=== PATIENT | female | born 1945 | race Caucasian/White ===

== ENCOUNTER 2019-12-25 09:48 | Outpatient (CLI) | payer MEDICARE, OTHER, SELFPAY ==
--- NOTE | 2019-12-25 09:58 | MM_ITS ---
WS: [id number] Bilateral screening digital mammogram, 12/25/2019 Clinical Data: SCREENING Comparison: 09/17/2018, 07/25/2017, 07/06/2016, 06/16/2015, 04/20/2014, 04/15/2013, 01/08/2012, 01/02/2011, . Findings: The breast parenchymal pattern shows fibroglandular tissue No spiculated masses or clustered calcific ations are seen. There are no secondary signs of carcinoma. There are small calcifications in the wal ls of the vessels. There is a mole marker on the left breast. MM/[id number] Impression: 1. Negative bilateral mammogram unchanged. 2. Recommend annual screening mammograms. BIRADS: 1-Negative FOLLOW UP: 1 Year Follow-up The CAD case checker was used.
== END 2019-12-25 09:49 | disposition home or self-care (01) ==
LOC: RADSHAW 09:54
PROVIDERS: PCP Nurse Practitioner Family; Visit Provider Nurse Practitioner Family
DX: Z12.31 Encounter for screening mammogram for malignant neoplasm of breast (principal)
CPT/HCPCS: 77067

== ENCOUNTER 2020-09-06 15:43 | Emergency (ER) | payer MEDICARE, SELFPAY ==
[2020-09-06 16:02] VITALS: BP 125/81; PULSE 86; RESP 17; TEMP 36.7; O2SAT 100; BMI 27.4
--- NOTE | 2020-09-06 16:26 | XRR_ITS ---
PROCEDURE INFORMATION: Exam: XR Chest Exam date and time: 09/06/2020 4:26 PM Age: 74 years old Clinical indication: Patient HX: History--weakness for 3 weeks, low back pain TECHNIQUE: Imaging protocol: XR of the chest. Views: 1 view. COMPARISON: No relevant prior studies available. FINDINGS: Lungs: Unremarkable. No consolidation. Pleural spaces: Unremarkable. No pleural effusion. No pneumothorax. Heart/Mediastinum: Unremarkable. No cardiomegaly. Bones/joints: Unremarkable. XR/XR chest 1V portable [id number] IMPRESSION: No acute findings.
--- NOTE | 2020-09-06 16:26 | ECG_ITS ---
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 Measurements Intervals [place] Rate: 83 P: 52 [place]: 124 QRS: 25 QRSD: 78 T: 68 QT: 357 QTc: 420 Interpretive Statements SINUS RHYTHM LOW QRS VOLTAGE IN PRECORDIAL LEADS [QRS DEFLECTION < 1.0 mV IN CHEST LEADS] POSSIBLE RIGHT VENTRICULAR CONDUCTION DELAY [RSR (QR) IN V1/V2] POSSIBLE SEPTAL MYOCARDIAL INFARCTION [30 ms Q WAVE IN V1/V2], OF INDETERMINATE AGE No previous ECG available for comparison Electronically Signed On 09-07-2020 0:48:06 CDT by Tank Macias M.D. [id number]
[2020-09-06 18:19] LABS: Basophils # 0.2 10^3/uL (0.0-0.1); Basophils % 1.7 %; Eosinophils % 0.1 %; Hemoglobin 13.2 g/dL (11.5-15.3); Lymphocytes # 1.9 10^3/uL (0.8-4.8); Lymphocytes % 18.4 %; Mean Corpuscular HGB Conc 33.8 g/dL (30.0-36.0); Mean Corpuscular Hemoglobin 34.1 pg (28.0-34.0); Mean Corpuscular Volume 100.8 fL (81-99); Mean Platelet Volume 10.7 fL (7.4-10.4); Monocytes # 0.7 10^3/uL (0.2-0.9); Neutrophils # 7.51 10^3/uL (1.8-7.7); Neutrophils % 71.5 %; Nucleated Red Blood Cells % 0 %; Platelet Count 226 10^3/cmm (130-400); Red Blood Count 3.87 10^6/uL (4.1-5.3); Red Cell Distribution Width 17.5 % (12.1-15.1); White Blood Count 10.5 10^3/uL (4.0-10.0)
--- NOTE | 2020-09-06 18:26 | ECG_ITS ---
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 Measurements Intervals [place] Rate: 81 P: 66 [place]: 140 QRS: 33 QRSD: 78 T: 103 QT: 347 QTc: 404 Interpretive Statements SINUS RHYTHM LOW QRS VOLTAGE IN PRECORDIAL LEADS [QRS DEFLECTION < 1.0 mV IN CHEST LEADS] POSSIBLE RIGHT VENTRICULAR CONDUCTION DELAY [RSR (QR) IN V1/V2] NONSPECIFIC T-WAVE ABNORMALITY Compared to ECG 09/06/2020 17:32:25 T-wave abnormality now present Myocardial infarct finding no longer present Electronically Signed On 09-07-2020 0:52:44 CDT by Tank Macias M.D. [id number]
[2020-09-06 18:32] LABS: Troponin(5th) Baseline 19 ng/L (0-10)
[2020-09-06 18:36] LABS: Alanine Aminotransferase 14 U/L (0-33); Albumin Level 4.5 g/dL (3.5-5.2); Alkaline Phosphatase 91 IU/L (35-105); Anion Gap 32.6 (5-19); Aspartate Amino Transferase 22 U/L (0-32); Blood Urea Nitrogen 14 mg/dL (8-23); Calcium 9.5 mg/dL (8.5-10.5); Carbon Dioxide 10 mmol/L (22-29); Chloride 103 mmol/L (98-107); Creatinine Clr Calc Pharmacy 49.6518; Globulin 2.3 g/dL (1.3-4.6); Glucose 103 mg/dL (65-115); Osmolality Calculated 295 mOsm/kg (285-295); Potassium 3.6 mmol/L (3.5-5.1); Sodium 142 mmol/L (136-145); Total Bilirubin 0.4 mg/dL (0.15-1.2); Total Protein 6.8 g/dL (6.6-8.7)
[2020-09-06 19:46] LABS: Troponin 5 2HR 18.45 ng/L (0-10)
[2020-09-06 19:47] LABS: Troponin 5 2HR Delta -0.55 ABS# (0-10)
== END 2020-09-07 00:30 ==
PROVIDERS: Physician Assistant; Emergency Provider Family Medicine; PCP Nurse Practitioner Family
DX: R53.1 Weakness (principal); R41.0 Disorientation, unspecified; M79.606 Pain in leg, unspecified; M54.9 Dorsalgia, unspecified; Z53.21 Procedure and treatment not carried out due to patient leaving prior to being seen by health care provider
CPT/HCPCS: 71045; 80053; 84484; 85025; 87040; 93005

== ENCOUNTER 2020-09-25 11:01 | Emergency (ER) | payer MEDICARE, SELFPAY ==
--- NOTE | 2020-09-25 11:09 | PC.NURSE ---
Received report from EMS for patient sliding from bed to floor left leg pain and low back pain 11/20. Patient resting on right side.
[2020-09-25 11:12] VITALS: BMI 27.4
[2020-09-25 11:24] VITALS: BP 119/79; PULSE 84; RESP 20; TEMP 36.4; O2SAT 99
--- NOTE | 2020-09-25 11:26 | ED_ITS ---
HPI - Back Pain/Injury General: Chief Complaint: Back Pain/Injury Stated Complaint: LOW BACK AND LEFT LEG PAIN Time Seen by Provider: 09/25/20 11:04 Source: patient and family (daughter) Mode of arrival: EMS Limitations: no limitations History of Present Illness: HPI Narrative: This patient arrived by EMS. History is provided by both the patient as well as her accompanying daughter who lives with her. Patient has a longstanding history of back pain. Daughter states it is for as long as she can remember her mother has had back pain. She states she is being followed by local clinic and has had a couple injections in her back for pain the most recent approximately 10 days ago. She states that she is in the emergency part today because she she was getting out of bed with the daughter's assistance and she felt like that she could not bear weight because of pain and daughter and her lowered her to the floor. EMS was notified. She apparently also has a history of having a fall within the last couple weeks. She denies any fevers or chills or other constitutional symptoms. She denies any loss of bowel or bladder control, weight loss, night sweats or other red flag symptoms. No history of saddle or perineal anesthesia or numbness. States the pain is in her lower back predominantly radiates into the outside portion of her left leg which is common for her. No extremity pain. No loss of motor function just global weakness. No history of depression. Severity: similar to previous episodes Quality: dull Location: lumbar spine and thoracic spine Radiation: left upper leg Exacerbating factors: walking Relieving factors: none Associated symptoms: Reports difficulty walking; Deny abdominal pain, chills, dysuria, fever(s), nausea, urinary urgency or vomiting Review of Systems Const: Denies: fever(s), chills, body aches, change in weight or night sweats Eyes: Denies: change in vision ENMT: Reports: dental pain; Denies: throat pain Card: Denies: chest pain, palpitations or irregular heart rhythm Resp: Denies: dyspnea, productive cough or non-productive cough GI: Denies: abdominal pain, nausea or vomiting : Denies: flank pain, difficulty voiding, dysuria, urinary frequency, urinary urgency or dribbling Musc: Reports: back pain; Denies: neck pain, extremity pain, extremity swelling, joint pain, limited range of motion or muscle cramps Skin/Breast: Denies: rash or changes in skin color Neuro: Reports: difficulty walking; Denies: headache(s), numbness in extremities, dizziness, vertigo, confusion or Slurred speech present Psych: Reports: sleeping more; Denies: depression Endo: Denies: polyuria or polydipsia Marcin/Lymph: Denies: easy bruising, petechiae or purpura Physical Exam Narrative: EXAM NARRATIVE: She makes eye contact. She will answer questions in a goal-directed fashion. Affect is flat. Const: COMMON NORMALS: patient oriented x3 and alert GENERAL APPEARANCE: cooperative ORIENTATION/CONSCIOUSNESS: Yes awake HENMT: COMMON NORMALS: normocephalic, hearing grossly normal bilaterally and Normal external nose present; head/scalp not atraumatic HEAD & SCALP: normocephalic; not atraumatic FACE & SINUS: normal facial exam NOSE: Normal external nose present MOUTH: Normal oral and palatal mucosa present (Mask per protocol) Eye: COMMON NORMALS: Equal, round and reactive pupils present GENERAL EYE: appearance normal, both eyes and all related structures and normal light reflex PUPIL: Yes Equal, round and reactive pupils present DIRECT OPHTHALMOSCOPY: Yes normal light reflex Neck/C-Spine: COMMON NORMALS: full ROM, no lymphadenopathy and No carotid bruits CERVICAL SPINE: Yes cervical ROM normal, No Cervical spine tenderness and No step off deformity Chest: COMMONS NORMALS: normal inspection of the chest CHEST: No tenderness and No Ecchymosis present Resp: COMMON NORMALS: normal respiratory effort, No retractions and clear to auscultation bilaterally AUSCULTATION: clear to auscultation bilaterally Cardio: COMMON NORMALS: regular rate, regular rhythm and No murmurs present (Cardio) RATE: regular rate RHYTHM: regular rhythm GI: COMMON NORMALS: Normal to inspection, nondistended, normoactive bowel sounds present, Soft to palpation, non-tender, no masses and no bruits PALPATION: Yes Soft to palpation : COMMON NORMALS: Yes no CVA tenderness BLADDER/KIDNEY EXAM: Yes no CVA tenderness Back/Pelvis: COMMON NORMALS: no CVA tenderness and thoracic and lumbar spine normal to inspection THORACIC SPINE/UPPER BACK: Yes thoracic spinal tenderness (Tenderness along the midline of the mid to lower thoracic and upper lumbar.) and Yes paraspinal muscle tenderness LUMBAR SPINE/LOWER BACK: Yes lumbar spinal tenderness, Yes paraspinal muscle tenderness, No straight leg raise positive right and Yes straight leg raise positive left SACROILIAC JOINTS: Yes SI joints normal (No tenderness over the soft tissue over the posterior superior iliac spines) SACRUM: no ecchymosis COCCYX: no tenderness Extremity: COMMON NORMALS: normal to inspection, full ROM, capillary refill normal, no joint enlargement and no calf tenderness NARRATIVE EXTREMITY EXAM: Rotation of the left hip internally and externally reproduces some of her back pain however there is no crepitance. There is no deformity of the hip. No other extremity findings. Neuro: COMMON NORMALS: patient oriented x3, moves all extremities, no focal motor deficits and no sensory deficits noted (She has no sensational abnormalities to light touch through the extremities) SENSORIUM/ORIENTATION: Yes alert SPEECH: speech normal SENSORY EXAM: Yes extremities Psych: COMMON NORMALS: mental status grossly normal and Normal thought process present MOOD & AFFECT: Yes Flat affect present THOUGHT PROCESS: Normal thought process present THOUGHT CONTENT: Yes Normal thought content present Course Reevaluation(s): Reevaluation #1: Discussed current findings with patient and daughter. Patient states she is gotten maybe some relief after her Lidoderm patch. Discussed that she has what appears to be a compression fracture as well as severe DJD and spinal stenosis. The former of these 3 is likely responsible factor for having increased symptoms recently. The eye is ideas to increase her mobilization without causing her to be affected by opiates. She apparently had a history of being somewhat altered on opiates in the past and that is why she was placed on acetaminophen with codeine. We will go ahead and add the Lidoderm patch prescription as well as meloxicam once daily. Discussed she has a follow- up appointment in 72 hours with her usual care doctor who is providing her back pain treatments. Again I related expected course, the need to remain active with patient and daughter. Also discussed return precautions. No evidence of any neurologic compromise at this time. Again the patient has a longstanding history of chronic back pain and is superimposed on that symptoms complex has caused her a increased debility. She may benefit from home physical therapy etc. and I discussed this with the patient and daughter. Time: 13:50 Vital Signs: Vital signs: Vital Signs Temperature 97.6 F 09/25/20 11:24 Pulse Rate 80 09/25/20 12:35 Respiratory Rate 16 09/25/20 12:35 Blood Pressure 119/79 09/25/20 12:35 Pulse Oximetry 99 09/25/20 12:35 Discharge Plan Discharge Patient Disposition: Home Clinical Impression: Compression fx, lumbar spine Qualifiers: Lumbar vertebra fracture level: unspecified lumbar vertebra Fracture healing: with routine healing Condition: Stable Prescriptions: New lidocaine [Lidoderm] 5 % adhesive patch,medicated 1 patch topical Q24H MDD 1 Qty: 15 RF: 0 meloxicam 15 mg tablet 15 mg PO DAILY Qty: 14 RF: 0 Discharge Orders: Discharge ED (Routine); Ordered 09/25/20 Ordered By: Harinder Chavarria Referrals: Shahrzad Contreras FNP [Primary Care Provider] - Discharge Diet: Usual diet Discharge Activity: Limit activity as instructed Patient Instructions: Vertebral Compression Fracture (ED), Opioid Safety Activity Restrictions/Additional Instructions: Try to maintain activity as much as possible. Resume a normal diet as soon as possible. If your symptoms persist or worsen return to this or the nearest emergency department otherwise see your doctor Saturday as scheduled Coding Level of Care Code ED Wireless Communications Engineer for Lefty Fwd Exam Comprehensive
--- NOTE | 2020-09-25 11:27 | CTR_ITS ---
PROCEDURE INFORMATION: Exam: CT Lumbar Spine Without Contrast Exam date and time: 09/25/2020 11:27 AM Age: 74 years old Clinical indication: Injury or trauma; Fall; Blunt trauma (contusions or hematomas); Additional info: Back pain TECHNIQUE: Imaging protocol: Computed tomography images of the lumbar spine without contrast. Radiation optimization: All CT scans at this facility use at least one of these dose optimization techniques: automated exposure control; mA and/or kV adjustment per patient size (includes targeted exams where dose is matched to clinical indication); or iterative reconstruction. COMPARISON: MRI Lumbar Spine w/o [id number] 01/01/2017 10:10 AM RADIATION DOSE METRICS: Total DLP (mGy-cm): 1899.22 FINDINGS: Vertebrae: No spondylolisthesis; No pars defect. Multi-level facet hypertrophic changes. Compression fracture involving the superior endplate of L4 both anterior and middle columns. Discs/Spinal canal/Neural foramina: Severe diffuse degenerative disc disease reflected as severe decrease in disc space height and anterior endplate osteophytosis. Severe diffuse degenerative disc disease. Vacuum disc phenomenon diffusely; Severe central canal narrowing L3-L4 and L4-L5. Moderate central canal narrowing L5-S1. Soft tissues: Unremarkable. CT/CT lumbar spine wo con* [id number] IMPRESSION: 1. Severe diffuse degenerative disc disease. 2. Compression fracture involving the superior endplate of L4 both anterior and middle columns. 3. Severe central canal narrowing L3-L4 and L4-L5. Moderate central canal narrowing L5-S1. Radiation Dose CTDIVOL = (mGy): DLP = 1899.22 (mGy-cm)
--- NOTE | 2020-09-25 11:32 | CTR_ITS ---
PROCEDURE INFORMATION: Exam: CT Thoracic Spine Without Contrast Exam date and time: 09/25/2020 11:32 AM Age: 74 years old Clinical indication: Injury or trauma; Fall; Blunt trauma (contusions or hematomas); Additional info: Back pain TECHNIQUE: Imaging protocol: Computed tomography images of the thoracic spine without contrast. Radiation optimization: All CT scans at this facility use at least one of these dose optimization techniques: automated exposure control; mA and/or kV adjustment per patient size (includes targeted exams where dose is matched to clinical indication); or iterative reconstruction. COMPARISON: MRI Lumbar Spine w/o [id number] 01/01/2017 10:10 AM RADIATION DOSE METRICS: Total DLP (mGy-cm): 1296.85 FINDINGS: Vertebrae: Alignment is normal; No fracture. Discs/Spinal canal/Neural foramina: Degenerative changes throughout the thoracic spine. Soft tissues: Unremarkable. CT/CT thoracic spin wo con* [id number] IMPRESSION: 1. No fracture. 2. Degenerative changes throughout the thoracic spine. Radiation Dose CTDIVOL = (mGy): DLP = 1296.85 (mGy-cm)
[2020-09-25] MEDS: ondansetron 4 MG Tablet PO (12:05)
--- NOTE | 2020-09-25 12:05 | PC.NURSE ---
Received call from CT staff that patient was having nausea, doctor notified and orders received.
[2020-09-25 12:35] VITALS: BP 119/79; PULSE 80; RESP 16; O2SAT 99
[2020-09-25] MEDS: lidocaine 5% Patch 1 PATCH TOPICAL (13:00)
[2020-09-25] MEDS: meloxicam 7.5 mg tablet 15 MG PO (14:02)
== END 2020-09-25 14:41 | disposition home or self-care (01) ==
PROVIDERS: Emergency Provider Emergency Medicine; PCP Nurse Practitioner Family
DX: S32.040A Wedge compression fracture of fourth lumbar vertebra, initial encounter for closed fracture (principal); W19.XXXA Unspecified fall, initial encounter
CPT/HCPCS: 72128; 72131; 99283; Q0162

== ENCOUNTER 2020-10-01 14:17 | Inpatient (IN) | payer MEDICARE, SELFPAY ==
[2020-10-01] VITALS (12 sets, daily range): BP systolic 101–123; BP diastolic 66–85; PULSE 74–112; RESP 16–29; TEMP 36.5–38.3; O2SAT 93–100; BMI 28.2
--- NOTE | 2020-10-01 14:24 | XRR_ITS ---
PROCEDURE INFORMATION: Exam: XR Chest Exam date and time: 10/01/2020 2:24 PM Age: 74 years old Clinical indication: Cough and dyspnea; Additional info: Dyspnea/cough TECHNIQUE: Imaging protocol: XR of the chest. Views: 1 view. COMPARISON: CR XR chest 1V portable [id number] 09/06/2020 4:38 PM FINDINGS: Lungs: Hyperinflated lungs. No focal consolidation. Pleural spaces: Unremarkable. No pleural effusion. No pneumothorax. Heart/Mediastinum: Unremarkable. No cardiomegaly. 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 XR/XR chest 1V portable [id number] IMPRESSION: Hyperinflated lungs. Findings may reflect obstructive lung disease in the appropriate clinical context. No focal consolidation.
--- NOTE | 2020-10-01 14:24 | ECG_ITS ---
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 Measurements Intervals [place] Rate: 118 P: 76 [place]: 129 QRS: 30 QRSD: 74 T: 221 QT: 340 QTc: 477 Interpretive Statements SINUS TACHYCARDIA POSSIBLE LEFT ATRIAL ENLARGEMENT [-0.1mV P-WAVE IN V1/V2] POSSIBLE RIGHT VENTRICULAR CONDUCTION DELAY [RSR (QR) IN V1/V2] POSSIBLE SEPTAL MYOCARDIAL INFARCTION , PROBABLY OLD [30 ms Q WAVE IN V1/V2] MODERATE T-WAVE ABNORMALITY, CONSIDER LATERAL ISCHEMIA MODERATE T-WAVE ABNORMALITY, CONSIDER INFERIOR ISCHEMIA Compared to ECG 09/06/2020 17:34:26 Myocardial infarct finding now present Possible ischemia now present Sinus rhythm no longer present T-wave abnormality still present Electronically Signed On 10-01-2020 20:50:41 CDT by Valery Ornelas M.D. [id number]
--- NOTE | 2020-10-01 14:24 | CTR_ITS ---
PROCEDURE INFORMATION: Exam: CT Head Without Contrast Exam date and time: 10/01/2020 2:24 PM Age: 74 years old Clinical indication: Altered mental status/memory loss; Confusion or disorientation; Additional info: AMS TECHNIQUE: Imaging protocol: Computed tomography of the head without contrast. Radiation optimization: All CT scans at this facility use at least one of these dose optimization techniques: automated exposure control; mA and/or kV adjustment per patient size (includes targeted exams where dose is matched to clinical indication); or iterative reconstruction. COMPARISON: CT neck w con* [id number] 12/10/2013 10:58 AM RADIATION DOSE METRICS: Total DLP (mGy-cm): 825.04 FINDINGS: Brain: Normal. No hemorrhage. Moderate diffuse cerebral atrophy and mild periventricular white matter low attenuation change suggestive of chronic small vessel ischemic disease. No mass effect. Cerebral ventricles: No ventriculomegaly. Paranasal sinuses: Visualized sinuses are unremarkable. No fluid levels. Mastoid air cells: Visualized mastoid air cells are well aerated. Bones/joints: Unremarkable. No acute fracture. Soft tissues: Unremarkable. CT/CT head wo con* [id number] IMPRESSION: 1. No acute intracranial abnormality. 2. Moderate diffuse cerebral atrophy and mild sequela of chronic small vessel ischemic disease. Radiation Dose CTDIVOL = (mGy): DLP = 825.04 (mGy-cm)
--- NOTE | 2020-10-01 14:28 | CTR_ITS ---
PROCEDURE INFORMATION: Exam: CTA Chest With Contrast Exam date and time: 10/01/2020 2:28 PM Age: 74 years old Clinical indication: Dyspnea; Additional info: HX of dvt, tachycardia, altered TECHNIQUE: Imaging protocol: Computed tomographic angiography of the chest with contrast. 3D rendering (Not supervised by radiologist): MIP and/or 3D reconstructed images were created by the technologist. Radiation optimization: All CT scans at this facility use at least one of these dose optimization techniques: automated exposure control; mA and/or kV adjustment per patient size (includes targeted exams where dose is matched to clinical indication); or iterative reconstruction. Contrast material: VISIPAQUE 320; Contrast volume: 50 ml; Contrast route: INTRAVENOUS (IV); COMPARISON: CR (CHEST, ) 10/01/2020 2:29 PM RADIATION DOSE METRICS: Total DLP (mGy-cm): 532.09 FINDINGS: Pulmonary arteries: Nonocclusive thrombus noted within a distal left upper lobar branch extending into the segmental branches. There is also nearly occlusive thrombus extending along posterior basilar segmental and subsegmental branches. Aorta: Unremarkable. No aortic aneurysm. No aortic dissection. Lungs: Unremarkable. No consolidation. No masses. Pleural spaces: Unremarkable. No pneumothorax. No pleural effusion. Heart: RV/LV ratio is greater than 1 suggestive of right heart strain. No cardiomegaly. No pericardial effusion. Lymph nodes: Unremarkable. No enlarged lymph nodes. Stomach and bowel: Moderate hiatal hernia containing portion of the stomach. Mild fluid-filled distention of the esophagus. Bones/joints: No acute fracture. Soft tissues: Unremarkable. CT/CT angio chest PE protcl [id number] IMPRESSION: Multifocal pulmonary emboli within both lungs as described in the body of the report. Imaging appearance suggestive of right heart strain. Radiation Dose CTDIVOL = (mGy): DLP = 532.09 (mGy-cm)
--- NOTE | 2020-10-01 14:28 | CTR_ITS ---
PROCEDURE INFORMATION: Exam: CT Angiography Head With Contrast, Arteriography Exam date and time: 10/01/2020 2:28 PM Age: 74 years old Clinical indication: Cognitive deficit; Altered mental status TECHNIQUE: Imaging protocol: Computed tomography angiography of the head with contrast. Exam focused on the arteries. 3D rendering (Not supervised by radiologist): MIP and/or 3D reconstructed images were created by the technologist. Radiation optimization: All CT scans at this facility use at least one of these dose optimization techniques: automated exposure control; mA and/or kV adjustment per patient size (includes targeted exams where dose is matched to clinical indication); or iterative reconstruction. Contrast material: VISIPAQUE 320; Contrast volume: 50 ml; Contrast route: INTRAVENOUS (IV); COMPARISON: CT head wo con* [id number] 10/01/2020 3:04 PM RADIATION DOSE METRICS: Total DLP (mGy-cm): 1174.52 FINDINGS: ANTERIOR CIRCULATION: Right internal carotid artery: Unremarkable. Intracranial segment is patent with no significant stenosis. No aneurysm. Right middle cerebral artery: Unremarkable. No occlusion or significant stenosis. No aneurysm. Right anterior cerebral artery: Unremarkable. No occlusion or significant stenosis. No aneurysm. Left internal carotid artery: Unremarkable. Intracranial segment is patent with no significant stenosis. No aneurysm. Left middle cerebral artery: Unremarkable. No occlusion or significant stenosis. No aneurysm. Left anterior cerebral artery: Unremarkable. No occlusion or significant stenosis. No aneurysm. POSTERIOR CIRCULATION: Right vertebral artery: Unremarkable. No occlusion or significant stenosis. No aneurysm. Left vertebral artery: Unremarkable. No occlusion or significant stenosis. No aneurysm. Basilar artery: Unremarkable. No occlusion or significant stenosis. No aneurysm. Right posterior cerebral artery: Unremarkable. No occlusion or significant stenosis. No aneurysm. Left posterior cerebral artery: Unremarkable. No occlusion or significant stenosis. No aneurysm. Brain: No definite mass, mass effect, or midline shift. Cerebral ventricles: No ventriculomegaly. Bones/joints: Unremarkable. No acute fracture. Soft tissues: Unremarkable. IMPRESSION: No large vessel stenosis or occlusion. PROCEDURE INFORMATION: Exam: CT Angiography Neck With Contrast Exam date and time: 10/01/2020 2:28 PM Age: 74 years old Clinical indication: Cognitive deficit; Altered mental status TECHNIQUE: Imaging protocol: Computed tomography angiography of the neck with contrast. 3D rendering (Not supervised by radiologist): MIP and/or 3D reconstructed images were created by the technologist. Radiation optimization: All CT scans at this facility use at least one of these dose optimization techniques: automated exposure control; mA and/or kV adjustment per patient size (includes targeted exams where dose is matched to clinical indication); or iterative reconstruction. Contrast material: VISIPAQUE 320; Contrast volume: 50 ml; Contrast route: INTRAVENOUS (IV); COMPARISON: CT head wo con* [id number] 10/01/2020 3:04 PM RADIATION DOSE METRICS: Total DLP (mGy-cm): 1174.52 FINDINGS: Right common carotid artery: No stenosis. No dissection or occlusion. Right internal carotid artery: No stenosis of the extracranial segment. No dissection or occlusion. Right external carotid artery: No occlusion or stenosis of the origin. Left common carotid artery: Calcified and noncalcified atherosclerotic plaque at the carotid bulb. No significant stenosis. No dissection or occlusion. Left internal carotid artery: Mild stenosis at the proximal left internal carotid artery. No dissection or occlusion. Left external carotid artery: No occlusion or stenosis of the origin. Right vertebral artery: No stenosis. No dissection or occlusion. Left vertebral artery: No stenosis. No dissection or occlusion. Soft tissues: Normal. No significant soft tissue swelling. Bones/joints: No acute fracture. CT/CT angio headneck* [id number] IMPRESSION: 1. Mild stenosis at the proximal left internal carotid less than 50% narrowing by NASCET criteria. 2. No significant stenosis or occlusion. REFERENCES: NASCET CRITERIA. The degree of internal carotid artery stenosis is based on NASCET criteria. Normal is no stenosis. Mild is less than 50% stenosis. Moderate is 50-69% stenosis. Severe is 70% to 99% stenosis. Total occlusion is no detectable patent lumen. Radiation Dose CTDIVOL = (mGy): DLP = 1174.52~1174.52 (mGy-cm)
[2020-10-01 14:35] LABS: ABG PCO2 27.4 mmHg (35-45); ABG PH Result 7.51 (7.35-7.45); Alveolar-Arterial Oxygen Gradi 20.4 mmHg (5-10); Arterial Blood Gas Hematocrit 42.3 % (37-47); Base Excess ABG 0.3 mmol/L (-2.0-2.0); Blood Gas Allen Test Pos; Blood Gas Operator Identificat MONRO; Blood Gas Sample Site Brachial, right; Blood Gas Sample Type Arterial; Carboxyhemoglobin 0.7 %THgb (0.4-20.1); HCO3 ABG 22.1 mmol/L (22-26); HGB O2 Sat 97.2 % (95-100); Ionized Calcium Level - ABG 1.5 mmol/L (1.1-1.4); Methemoglobin 1.2 % (0.4-1.5); Oxygen Device NC; Oxygen Saturation ABG 99.1; Potassium Level - ABG 2.7 mmol/L (3.5-5.0); Total Hemoglobin 13.8 g/dL (12-16)
[2020-10-01] MEDS: sodium chloride 0.9% 1,000 ML 999 ML IV ×2 (14:36→14:49)
[2020-10-01 14:41] LABS: Glucose Point of Care 159 mg/dL (70-110)
--- NOTE | 2020-10-01 14:44 | W.ED.GENADLT ---
HPI - General Adult General: Chief complaint: Altered Mental Status Stated complaint: RESP DISTRESS Time Seen by Provider: 10/01/20 14:23 History of Present Illness: HPI narrative: CC: AMS, fever HPI: [74]yo patient w/ hx of DVT (unclear if on AC), recent evaluation in the ED for concerns of chronic compression fractures BIBA for altered mental status since discharge from ED on 09/25/2020. Per daughter, patient has not been acting right since his discharge home. Daughter declines any increasing use of opiates because of severity of symptoms decided to call EMS. En route, POC glucose of 160. In the field, patient was noted to be hypotensive and received 40 mcg of epinephrine through the left shoulder IO. In the ED, the patient is minimally responsive to sternal rub, pupil are equal and reactive with gauze occasionally deviated to the right side. The right pupil is 5 mm, left is 3 mm patient is minimally responsive to sternal rub. Rest of hx limited by cognitive condition Onset: Unknown Duration: ongoing, unclear duration Location: home Severity: severe Review of Systems Narrative: REVIEW OF SYSTEMS unable to obtain due to current cognitive status PFSH ED PFSH: Medical History (Updated 10/01/20 @ 17:07 by Carlos Manuel Sharp MD) Chronic back pain GERD (gastroesophageal reflux disease) Hyperlipidemia Hypothyroidism Surgical History (Updated 10/01/20 @ 16:56 by Carlos Manuel Sharp MD) History of hysterectomy Family History (Updated 10/01/20 @ 16:57 by Carlos Manuel Sharp MD) Mother Breast cancer Social History (Updated 10/01/20 @ 16:57 by Carlos Manuel Sharp MD) Smoking and tobacco status: never smoked Alcohol intake: never Substance/Drug Use: never Physical Exam Narrative: EXAM NARRATIVE: Head: Atraumatic Eyes: PERRL, conjunctiva without injection, sluggishly reactive pupils, ENT: Dry membrane moist NECK: Supple without lymphadenopathy LUNGS: Mild wheezes b/l in thel kevin ott CV: Tachycardia ABDOMEN: Soft, nontender in all quadrants EXTREMITY: Normal ROM SKIN: No rash or erythema, no signs of track martin, no visible patches, no noticeable cellulitis NEURO: Somnolent but arousable, occasionally moans, not moving extremities PSYCH: Somnolent unable to fully assess at this time Course Vital Signs: Vital signs: Vital Signs Temperature 97.7 F 10/01/20 19:11 Pulse Rate 78 10/01/20 19:11 Respiratory Rate 21 H 10/01/20 19:11 Blood Pressure 121/85 10/01/20 19:11 Pulse Oximetry 97 10/01/20 19:11 MDM - General Adult MDM Narrative: Medical decision making narrative: [74]yo patient w/ hx of prior DVT and chronic comrpession fxs BIBA for AMS, unclear last seen normal. Obtunded with +Slurred, sluggish behavior. Airway maintained. No signs of trauma including bruises, hematoma, lacerations, or basilar skull fracture. Febrile to 100.9, tachypneic to the , no suspicion for toxic alcohol vs ASA overdose vs DKA. DDx broad including intracranial injuries, metabolic phenomenon, and sepsis. Toxidrome Findings: Negative. No rigidity or clonus of LE ankle/knee reflexes, no diaphoresis, pupils mid-ranged equal and reactive to light, no signs of track martin/body patches, normal bowel sounds, and bladder non-palpable/ non-distended. POC Glucose: 159 EKG: DANIELA in aVR/V1/V2 with reciprocial depressions in II/III/AVF and V3-V6 new compared to 08/31/2020 Workup: CBC, CMP, VBG, CK, UA, ECG, UA/UDS, CT brain, XR Chest, UA, CTA head/neck and CTA chest Intervention: IVF, vancomycin 1g, cefepime 1g Lab Findings: WBC of 11, troponin of 89, K of 3.1, Na of 153, Cr of 1.6 Imaging studies: Multifocal PEs, R heart strain [4:30] On reassessment, patient is found to have multiple PEs on CTA study. CT brain negative for any acute brain bleed and CTA negative for any signs of large vessel strokes. UA pending. Lactic acid initially 4.1. Given findings right heart rate on CTA, decision was made to fluid restrict after 2L of IVF. Patient received vancomycin and cefepime in the emergency room. Patient is started on heparin bolus followed by drip per PE protocol. Given Tylenol for fever, and aspirin rectally for troponin elevation. Repeat EKG did not show findings of ST elevation in V1/V2 with associated reciprocal ST depression. Patient continues to be hemodynamically stable, has not needed any pressor at this time. Wheezing on exam, received DuoNeb and steroid. I have discussed with case with Dr. Sharp with recommendation for inpatient admission to the stepdown unit. Temp improved on revitaling Disposition: Admission to stepdown Lab Data: Labs: Lab Results 10/01/20 10/01/20 10/01/20 Range/Units 14:15 14:15 14:15 WBC 11.3 H (4.0-10.0) 10^3/ uL RBC 3.92 L (4.1-5.3) 10^6/u L Hgb 13.5 (11.5-15.3) g/dL Hct 37.7 (37.0-47.0) % MCV 96.2 (81-99) fl MCH 34.4 H (28.0-34.0) pg MCHC 35.8 (30.0-36.0) g/dL RDW 18.4 H (12.1-15.1) % Plt Count 185 (130-400) 10^3/c mm MPV 10.5 H (7.4-10.4) fL Neut % (Auto) 70.8 % Lymph % (Auto) 14.5 % [place] % (Auto) 11.1 % Eos % (Auto) 1.6 % Baso % (Auto) 0.4 % Neut # (Auto) 8.00 H (1.8-7.7) 10^3/u L Lymph # (Auto) 1.6 (0.8-4.8) 10^3/u L [place] # (Auto) 1.3 H (0.2-0.9) 10^3/u L Eos # (Auto) 0.2 (0.0-0.8) 10^3/u L Baso # (Auto) 0.1 (0.0-0.1) 10^3/u L Nucleated RBC % (a uto) 3.8 % Nucleated RBCs # 0.4 /100WBC ESR (0-15) mm/hr PT (12.1-14.9) SECO NDS INR (0.8-1.2) APTT (23.9-36.7) SECO NDS Specimen Type Sample Site ABG pH (7.35-7.45) ABG pCO2 (35-45) mmHg ABG pO2 (80.0-100.0) mmH g ABG HCO3 (22-26) mmol/L ABG O2 Saturation ABG Base Excess (-2.0-2.0) mmol/ L Scott Test A-a O2 Gradient (5-10) mmHg Hematocrit (37-47) % Hgb O2 Saturation (95-100) % Carboxyhemoglobin (0.4-20.1) %THgb Methemoglobin (0.4-1.5) % Total Hemoglobin (12-16) g/dL Ionized Calcium (1.1-1.4) mmol/L O2 Delivery Device O2 Liters/Min % FiO2 % X Ray Consultant ID Sodium 153 H (136-145) mmol/L Potassium 3.1 L (3.5-5.1) mmol/L Chloride 112 H (98-107) mmol/L Carbon Dioxide 21 L (22-29) mmol/L Anion Gap 23.1 H (5-19) BUN 53 H (8-23) mg/dL Creatinine 1.6 H (0.5-0.9) mg/dL GFR Calculation Not Reportable Glucose 172 H (65-115) mg/dL POC Glucose (70-110) mg/dL Estimat Average Gl ucose Hemoglobin A1c (4.0-6.0) % Calculated Osmolal ity 334 H (285-295) mOsm/k g Lactic Acid 4.1 H* (0.5-2.2) mmol/L Calcium 10.9 H (8.5-10.5) mg/dL Total Bilirubin 0.5 (0.15-1.2) mg/dL AST 33 H (0-32) U/L ALT 15 (0-33) U/L Alkaline Phosphata se 74 (35-105) IU/L Creatine Kinase 535 H* (26-192) U/L Troponin T Baselin e (0-10) ng/L C-Reactive Protein (0.0-4.9) mg/L NT-Pro-B Natriuret Pep (0-125) pg/mL Total Protein 5.6 L (6.6-8.7) g/dL Albumin 3.4 L (3.5-5.2) g/dL Globulin 2.2 (1.3-4.6) g/dL Lipase 75 H (13-60) U/L Procalcitonin (0-0.5) ng/mL TSH (0.27-4.20) uIU/ mL Urine Color (Yellow) Urine Appearance (CLEAR) Urine pH (5-7) Ur Specific Gravit y (1.005-1.030) Urine Protein (Negative) Urine Glucose (UA) (Normal) Urine Ketones (Negative) Urine Blood (Negative) Urine Nitrate (Negative) Urine Bilirubin (Negative) Urine Urobilinogen (Negative) mg/dL Ur Leukocyte Fanta ase (Negative) Urine RBC (0-2) /hpf Urine WBC (0-5) /hpf Ur Squamous Epith Cells (0-5) /hpf Amorphous Sediment Urine Bacteria (NONE) /hpf Hyaline Casts /lpf Urine Mucus /hpf Salicylates < 0.3 L (3-10) mg/dL Urine Opiates Scre en (Negative) ng/mL Acetaminophen < 5.0 L (10-30) ug/mL Ur Barbiturates Sc reen (Negative) ng/mL Ur Phencyclidine S crn (Negative) ng/mL Ur Amphetamines Sc reen (Negative) ng/mL U Benzodiazepines Scrn (Negative) ng/mL Urine Cocaine Scre en (Negative) ng/mL U Marijuana (THC) Screen (Negative) ng/mL Serum Ketones (Negative) SARS-CoV-2 Ag (Rap id) (Negative) 10/01/20 10/01/20 10/01/20 Range/Units 14:15 14:15 14:15 WBC (4.0-10.0) 10^3/ uL RBC (4.1-5.3) 10^6/u L Hgb (11.5-15.3) g/dL Hct (37.0-47.0) % MCV (81-99) fl MCH (28.0-34.0) pg MCHC (30.0-36.0) g/dL RDW (12.1-15.1) % Plt Count (130-400) 10^3/c mm MPV (7.4-10.4) fL Neut % (Auto) % Lymph % (Auto) % [place] % (Auto) % Eos % (Auto) % Baso % (Auto) % Neut # (Auto) (1.8-7.7) 10^3/u L Lymph # (Auto) (0.8-4.8) 10^3/u L [place] # (Auto) (0.2-0.9) 10^3/u L Eos # (Auto) (0.0-0.8) 10^3/u L Baso # (Auto) (0.0-0.1) 10^3/u L Nucleated RBC % (a uto) % Nucleated RBCs # /100WBC ESR (0-15) mm/hr PT 21.00 H (12.1-14.9) SECO NDS INR 1.77 H (0.8-1.2) APTT 26.3 (23.9-36.7) SECO NDS Specimen Type Sample Site ABG pH (7.35-7.45) ABG pCO2 (35-45) mmHg ABG pO2 (80.0-100.0) mmH g ABG HCO3 (22-26) mmol/L ABG O2 Saturation ABG Base Excess (-2.0-2.0) mmol/ L Scott Test A-a O2 Gradient (5-10) mmHg Hematocrit (37-47) % Hgb O2 Saturation (95-100) % Carboxyhemoglobin (0.4-20.1) %THgb Methemoglobin (0.4-1.5) % Total Hemoglobin (12-16) g/dL Ionized Calcium (1.1-1.4) mmol/L O2 Delivery Device O2 Liters/Min % FiO2 % X Ray Consultant ID Sodium (136-145) mmol/L Potassium (3.5-5.1) mmol/L Chloride (98-107) mmol/L Carbon Dioxide (22-29) mmol/L Anion Gap (5-19) BUN (8-23) mg/dL Creatinine (0.5-0.9) mg/dL GFR Calculation Glucose (65-115) mg/dL POC Glucose (70-110) mg/dL Estimat Average Gl ucose Hemoglobin A1c (4.0-6.0) % Calculated Osmolal ity (285-295) mOsm/k g Lactic Acid (0.5-2.2) mmol/L Calcium (8.5-10.5) mg/dL Total Bilirubin (0.15-1.2) mg/dL AST (0-32) U/L ALT (0-33) U/L Alkaline Phosphata se (35-105) IU/L Creatine Kinase (26-192) U/L Troponin T Baselin e 76 H (0-10) ng/L C-Reactive Protein (0.0-4.9) mg/L NT-Pro-B Natriuret Pep (0-125) pg/mL Total Protein (6.6-8.7) g/dL Albumin (3.5-5.2) g/dL Globulin (1.3-4.6) g/dL Lipase (13-60) U/L Procalcitonin (0-0.5) ng/mL TSH (0.27-4.20) uIU/ mL Urine Color (Yellow) Urine Appearance (CLEAR) Urine pH (5-7) Ur Specific Gravit y (1.005-1.030) Urine Protein (Negative) Urine Glucose (UA) (Normal) Urine Ketones (Negative) Urine Blood (Negative) Urine Nitrate (Negative) Urine Bilirubin (Negative) Urine Urobilinogen (Negative) mg/dL Ur Leukocyte Fanta ase (Negative) Urine RBC (0-2) /hpf Urine WBC (0-5) /hpf Ur Squamous Epith Cells (0-5) /hpf Amorphous Sediment Urine Bacteria (NONE) /hpf Hyaline Casts /lpf Urine Mucus /hpf Salicylates (3-10) mg/dL Urine Opiates Scre en (Negative) ng/mL Acetaminophen (10-30) ug/mL Ur Barbiturates Sc reen (Negative) ng/mL Ur Phencyclidine S crn (Negative) ng/mL Ur Amphetamines Sc reen (Negative) ng/mL U Benzodiazepines Scrn (Negative) ng/mL Urine Cocaine Scre en (Negative) ng/mL U Marijuana (THC) Screen (Negative) ng/mL Serum Ketones Negative (Negative) SARS-CoV-2 Ag (Rap id) (Negative) 10/01/20 10/01/20 10/01/20 Range/Units 14:15 14:15 14:15 WBC (4.0-10.0) 10^3/ uL RBC (4.1-5.3) 10^6/u L Hgb (11.5-15.3) g/dL Hct (37.0-47.0) % MCV (81-99) fl MCH (28.0-34.0) pg MCHC (30.0-36.0) g/dL RDW (12.1-15.1) % Plt Count (130-400) 10^3/c mm MPV (7.4-10.4) fL Neut % (Auto) % Lymph % (Auto) % [place] % (Auto) % Eos % (Auto) % Baso % (Auto) % Neut # (Auto) (1.8-7.7) 10^3/u L Lymph # (Auto) (0.8-4.8) 10^3/u L [place] # (Auto) (0.2-0.9) 10^3/u L Eos # (Auto) (0.0-0.8) 10^3/u L Baso # (Auto) (0.0-0.1) 10^3/u L Nucleated RBC % (a uto) % Nucleated RBCs # /100WBC ESR 10 (0-15) mm/hr PT (12.1-14.9) SECO NDS INR (0.8-1.2) APTT (23.9-36.7) SECO NDS Specimen Type Sample Site ABG pH (7.35-7.45) ABG pCO2 (35-45) mmHg ABG pO2 (80.0-100.0) mmH g ABG HCO3 (22-26) mmol/L ABG O2 Saturation ABG Base Excess (-2.0-2.0) mmol/ L Scott Test A-a O2 Gradient (5-10) mmHg Hematocrit (37-47) % Hgb O2 Saturation (95-100) % Carboxyhemoglobin (0.4-20.1) %THgb Methemoglobin (0.4-1.5) % Total Hemoglobin (12-16) g/dL Ionized Calcium (1.1-1.4) mmol/L O2 Delivery Device O2 Liters/Min % FiO2 % X Ray Consultant ID Sodium (136-145) mmol/L Potassium (3.5-5.1) mmol/L Chloride (98-107) mmol/L Carbon Dioxide (22-29) mmol/L Anion Gap (5-19) BUN (8-23) mg/dL Creatinine (0.5-0.9) mg/dL GFR Calculation Glucose (65-115) mg/dL POC Glucose (70-110) mg/dL Estimat Average Gl ucose 111 Hemoglobin A1c 5.5 (4.0-6.0) % Calculated Osmolal ity (285-295) mOsm/k g Lactic Acid (0.5-2.2) mmol/L Calcium (8.5-10.5) mg/dL Total Bilirubin (0.15-1.2) mg/dL AST (0-32) U/L ALT (0-33) U/L Alkaline Phosphata se (35-105) IU/L Creatine Kinase (26-192) U/L Troponin T Baselin e (0-10) ng/L C-Reactive Protein 13.8 H (0.0-4.9) mg/L NT-Pro-B Natriuret Pep 4581 H (0-125) pg/mL Total Protein (6.6-8.7) g/dL Albumin (3.5-5.2) g/dL Globulin (1.3-4.6) g/dL Lipase (13-60) U/L Procalcitonin 0.30 (0-0.5) ng/mL TSH 3.53 (0.27-4.20) uIU/ mL Urine Color (Yellow) Urine Appearance (CLEAR) Urine pH (5-7) Ur Specific Gravit y (1.005-1.030) Urine Protein (Negative) Urine Glucose (UA) (Normal) Urine Ketones (Negative) Urine Blood (Negative) Urine Nitrate (Negative) Urine Bilirubin (Negative) Urine Urobilinogen (Negative) mg/dL Ur Leukocyte Fanta ase (Negative) Urine RBC (0-2) /hpf Urine WBC (0-5) /hpf Ur Squamous Epith Cells (0-5) /hpf Amorphous Sediment Urine Bacteria (NONE) /hpf Hyaline Casts /lpf Urine Mucus /hpf Salicylates (3-10) mg/dL Urine Opiates Scre en (Negative) ng/mL Acetaminophen (10-30) ug/mL Ur Barbiturates Sc reen (Negative) ng/mL Ur Phencyclidine S crn (Negative) ng/mL Ur Amphetamines Sc reen (Negative) ng/mL U Benzodiazepines Scrn (Negative) ng/mL Urine Cocaine Scre en (Negative) ng/mL U Marijuana (THC) Screen (Negative) ng/mL Serum Ketones (Negative) SARS-CoV-2 Ag (Rap id) (Negative) 10/01/20 10/01/20 10/01/20 Range/Units 14:18 14:27 14:27 WBC (4.0-10.0) 10^3/ uL RBC (4.1-5.3) 10^6/u L Hgb (11.5-15.3) g/dL Hct (37.0-47.0) % MCV (81-99) fl MCH (28.0-34.0) pg MCHC (30.0-36.0) g/dL RDW (12.1-15.1) % Plt Count (130-400) 10^3/c mm MPV (7.4-10.4) fL Neut % (Auto) % Lymph % (Auto) % [place] % (Auto) % Eos % (Auto) % Baso % (Auto) % Neut # (Auto) (1.8-7.7) 10^3/u L Lymph # (Auto) (0.8-4.8) 10^3/u L [place] # (Auto) (0.2-0.9) 10^3/u L Eos # (Auto) (0.0-0.8) 10^3/u L Baso # (Auto) (0.0-0.1) 10^3/u L Nucleated RBC % (a uto) % Nucleated RBCs # /100WBC ESR (0-15) mm/hr PT (12.1-14.9) SECO NDS INR (0.8-1.2) APTT (23.9-36.7) SECO NDS Specimen Type Arterial Sample Site Brachial, right ABG pH 7.51 H (7.35-7.45) ABG pCO2 27.4 L (35-45) mmHg ABG pO2 119.0 H (80.0-100.0) mmH g ABG HCO3 22.1 (22-26) mmol/L ABG O2 Saturation 99.1 ABG Base Excess 0.3 (-2.0-2.0) mmol/ L Scott Test Pos A-a O2 Gradient 20.4 H (5-10) mmHg Hematocrit 42.3 (37-47) % Hgb O2 Saturation 97.2 (95-100) % Carboxyhemoglobin 0.7 (0.4-20.1) %THgb Methemoglobin 1.2 (0.4-1.5) % Total Hemoglobin 13.8 (12-16) g/dL Ionized Calcium 1.5 H (1.1-1.4) mmol/L O2 Delivery Device Nc O2 Liters/Min 6.0 % FiO2 44.0 % X Ray Consultant ID [place] Sodium 156.0 H (136-145) mmol/L Potassium 2.7 L (3.5-5.1) mmol/L Chloride (98-107) mmol/L Carbon Dioxide (22-29) mmol/L Anion Gap (5-19) BUN (8-23) mg/dL Creatinine (0.5-0.9) mg/dL GFR Calculation Glucose 175.0 H (65-115) mg/dL POC Glucose (70-110) mg/dL Estimat Average Gl ucose Hemoglobin A1c (4.0-6.0) % Calculated Osmolal ity (285-295) mOsm/k g Lactic Acid (0.5-2.2) mmol/L Calcium (8.5-10.5) mg/dL Total Bilirubin (0.15-1.2) mg/dL AST (0-32) U/L ALT (0-33) U/L Alkaline Phosphata se (35-105) IU/L Creatine Kinase (26-192) U/L Troponin T Baselin e (0-10) ng/L C-Reactive Protein (0.0-4.9) mg/L NT-Pro-B Natriuret Pep (0-125) pg/mL Total Protein (6.6-8.7) g/dL Albumin (3.5-5.2) g/dL Globulin (1.3-4.6) g/dL Lipase (13-60) U/L Procalcitonin (0-0.5) ng/mL TSH (0.27-4.20) uIU/ mL Urine Color Dark yellow (Yellow) Urine Appearance Cloudy (CLEAR) Urine pH 6 (5-7) Ur Specific Gravit y 1.015 (1.005-1.030) Urine Protein 1+ H (Negative) Urine Glucose (UA) Norm (Normal) Urine Ketones 2+ H (Negative) Urine Blood 2+ H (Negative) Urine Nitrate Negative (Negative) Urine Bilirubin 1+ H (Negative) Urine Urobilinogen 1 H (Negative) mg/dL Ur Leukocyte Fanta ase Negative (Negative) Urine RBC 0-4 H (0-2) /hpf Urine WBC 0-4 H (0-5) /hpf Ur Squamous Epith Cells 5-10 H (0-5) /hpf Amorphous Sediment Not Reportable Urine Bacteria 1+ H (NONE) /hpf Hyaline Casts 5-10 H /lpf Urine Mucus Trace /hpf Salicylates (3-10) mg/dL Urine Opiates Scre en Positive H (Negative) ng/mL Acetaminophen (10-30) ug/mL Ur Barbiturates Sc reen Negative (Negative) ng/mL Ur Phencyclidine S crn Negative (Negative) ng/mL Ur Amphetamines Sc reen Negative (Negative) ng/mL U Benzodiazepines Scrn Negative (Negative) ng/mL Urine Cocaine Scre en Negative (Negative) ng/mL U Marijuana (THC) Screen Negative (Negative) ng/mL Serum Ketones (Negative) SARS-CoV-2 Ag (Rap id) (Negative) 10/01/20 10/01/20 Range/Units 14:27 15:49 WBC (4.0-10.0) 10^3/ uL RBC (4.1-5.3) 10^6/u L Hgb (11.5-15.3) g/dL Hct (37.0-47.0) % MCV (81-99) fl MCH (28.0-34.0) pg MCHC (30.0-36.0) g/dL RDW (12.1-15.1) % Plt Count (130-400) 10^3/c mm MPV (7.4-10.4) fL Neut % (Auto) % Lymph % (Auto) % [place] % (Auto) % Eos % (Auto) % Baso % (Auto) % Neut # (Auto) (1.8-7.7) 10^3/u L Lymph # (Auto) (0.8-4.8) 10^3/u L [place] # (Auto) (0.2-0.9) 10^3/u L Eos # (Auto) (0.0-0.8) 10^3/u L Baso # (Auto) (0.0-0.1) 10^3/u L Nucleated RBC % (a uto) % Nucleated RBCs # /100WBC ESR (0-15) mm/hr PT (12.1-14.9) SECO NDS INR (0.8-1.2) APTT (23.9-36.7) SECO NDS Specimen Type Sample Site ABG pH (7.35-7.45) ABG pCO2 (35-45) mmHg ABG pO2 (80.0-100.0) mmH g ABG HCO3 (22-26) mmol/L ABG O2 Saturation ABG Base Excess (-2.0-2.0) mmol/ L Scott Test A-a O2 Gradient (5-10) mmHg Hematocrit (37-47) % Hgb O2 Saturation (95-100) % Carboxyhemoglobin (0.4-20.1) %THgb Methemoglobin (0.4-1.5) % Total Hemoglobin (12-16) g/dL Ionized Calcium (1.1-1.4) mmol/L O2 Delivery Device O2 Liters/Min % FiO2 % X Ray Consultant ID Sodium (136-145) mmol/L Potassium (3.5-5.1) mmol/L Chloride (98-107) mmol/L Carbon Dioxide (22-29) mmol/L Anion Gap (5-19) BUN (8-23) mg/dL Creatinine (0.5-0.9) mg/dL GFR Calculation Glucose (65-115) mg/dL POC Glucose 159 H (70-110) mg/dL Estimat Average Gl ucose Hemoglobin A1c (4.0-6.0) % Calculated Osmolal ity (285-295) mOsm/k g Lactic Acid (0.5-2.2) mmol/L Calcium (8.5-10.5) mg/dL Total Bilirubin (0.15-1.2) mg/dL AST (0-32) U/L ALT (0-33) U/L Alkaline Phosphata se (35-105) IU/L Creatine Kinase (26-192) U/L Troponin T Baselin e (0-10) ng/L C-Reactive Protein (0.0-4.9) mg/L NT-Pro-B Natriuret Pep (0-125) pg/mL Total Protein (6.6-8.7) g/dL Albumin (3.5-5.2) g/dL Globulin (1.3-4.6) g/dL Lipase (13-60) U/L Procalcitonin (0-0.5) ng/mL TSH (0.27-4.20) uIU/ mL Urine Color (Yellow) Urine Appearance (CLEAR) Urine pH (5-7) Ur Specific Gravit y (1.005-1.030) Urine Protein (Negative) Urine Glucose (UA) (Normal) Urine Ketones (Negative) Urine Blood (Negative) Urine Nitrate (Negative) Urine Bilirubin (Negative) Urine Urobilinogen (Negative) mg/dL Ur Leukocyte Fanta ase (Negative) Urine RBC (0-2) /hpf Urine WBC (0-5) /hpf Ur Squamous Epith Cells (0-5) /hpf Amorphous Sediment Urine Bacteria (NONE) /hpf Hyaline Casts /lpf Urine Mucus /hpf Salicylates (3-10) mg/dL Urine Opiates Scre en (Negative) ng/mL Acetaminophen (10-30) ug/mL Ur Barbiturates Sc reen (Negative) ng/mL Ur Phencyclidine S crn (Negative) ng/mL Ur Amphetamines Sc reen (Negative) ng/mL U Benzodiazepines Scrn (Negative) ng/mL Urine Cocaine Scre en (Negative) ng/mL U Marijuana (THC) Screen (Negative) ng/mL Serum Ketones (Negative) SARS-CoV-2 Ag (Rap id) Negative (Negative) Imaging Data^: Other Imaging: Radiologist's impression: [address] [id number] ReportSigned Patient: Brisa Marshall #: [id number]: [id number]#:[id number]/Sex: 74 / FADM Date: 10/01/20Loc: ERRoom/Bed:Attending Dr: Ordering Provider/Ordering MD: Ravindra Estevez DO Date of Service: 10/01/20 Procedure(s): XR chest 1V portable [id number] Accession Number(s): [id number] Report Number: [id number] PROCEDURE INFORMATION: Exam: XR Chest Exam date and time: 10/01/2020 2:24 PM Age: 74 years old Clinical indication: Cough and dyspnea; Additional info: Dyspnea/cough TECHNIQUE: Imaging protocol: XR of the chest. Views: 1 view. COMPARISON: CR XR chest 1V portable [id number] 09/06/2020 4:38 PM FINDINGS: Lungs: Hyperinflated lungs. No focal consolidation. Pleural spaces: Unremarkable. No pleural effusion. No pneumothorax. Heart/Mediastinum: Unremarkable. No cardiomegaly. 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 XR/XR chest 1V portable [id number] IMPRESSION: Hyperinflated lungs. Findings may reflect obstructive lung disease in the appropriate clinical context. No focal consolidation. Dictated By:Rob Perry DOSigned By:Rob Perry DOSigned Date/Time:10/01/20 1506DD/ 1504 [facility] [place] [id number] Scan ReportSigned Patient: Brisa Marshall #: [id number]: 1945cct#:[id number]/Sex: 74 / FADM Date: 10/01/20Loc: ERRoom/Bed:Attending Dr: Ordering Provider/Ordering MD: Zana Guevara MD Date of Service: 10/01/20 Procedure(s): CT angio headneck* [id number] Accession Number(s): [id number] Report Number: [id number] PROCEDURE INFORMATION: Exam: CT Angiography Head With Contrast, Arteriography Exam date and time: 10/01/2020 2:28 PM Age: 74 years old Clinical indication: Cognitive deficit; Altered mental status TECHNIQUE: Imaging protocol: Computed tomography angiography of the head with contrast. Exam focused on the arteries. 3D rendering (Not supervised by radiologist): MIP and/or 3D reconstructed images were created by the technologist. Radiation optimization: All CT scans at this facility use at least one of these dose optimization techniques: automated exposure control; mA and/or kV adjustment per patient size (includes targeted exams where dose is matched to clinical indication); or iterative reconstruction. Contrast material: VISIPAQUE 320; Contrast volume: 50 ml; Contrast route: INTRAVENOUS (IV); COMPARISON: CT head wo con* [id number] 10/01/2020 3:04 PM RADIATION DOSE METRICS: Total DLP (mGy-cm): 1174.52 FINDINGS: ANTERIOR CIRCULATION: Right internal carotid artery: Unremarkable. Intracranial segment is patent with no significant stenosis. No aneurysm. Right middle cerebral artery: Unremarkable. No occlusion or significant stenosis. No aneurysm. Right anterior cerebral artery: Unremarkable. No occlusion or significant stenosis. No aneurysm. Left internal carotid artery: Unremarkable. Intracranial segment is patent with no significant stenosis. No aneurysm. Left middle cerebral artery: Unremarkable. No occlusion or significant stenosis. No aneurysm. Left anterior cerebral artery: Unremarkable. No occlusion or significant stenosis. No aneurysm. POSTERIOR CIRCULATION: Right vertebral artery: Unremarkable. No occlusion or significant stenosis. No aneurysm. Left vertebral artery: Unremarkable. No occlusion or significant stenosis. No aneurysm. Basilar artery: Unremarkable. No occlusion or significant stenosis. No aneurysm. Right posterior cerebral artery: Unremarkable. No occlusion or significant stenosis. No aneurysm. Left posterior cerebral artery: Unremarkable. No occlusion or significant stenosis. No aneurysm. Brain: No definite mass, mass effect, or midline shift. Cerebral ventricles: No ventriculomegaly. Bones/joints: Unremarkable. No acute fracture. Soft tissues: Unremarkable. IMPRESSION: No large vessel stenosis or occlusion. PROCEDURE INFORMATION: Exam: CT Angiography Neck With Contrast Exam date and time: 10/01/2020 2:28 PM Age: 74 years old Clinical indication: Cognitive deficit; Altered mental status TECHNIQUE: Imaging protocol: Computed tomography angiography of the neck with contrast. 3D rendering (Not supervised by radiologist): MIP and/or 3D reconstructed images were created by the technologist. Radiation optimization: All CT scans at this facility use at least one of these dose optimization techniques: automated exposure control; mA and/or kV adjustment per patient size (includes targeted exams where dose is matched to clinical indication); or iterative reconstruction. Contrast material: VISIPAQUE 320; Contrast volume: 50 ml; Contrast route: INTRAVENOUS (IV); COMPARISON: CT head wo con* [id number] 10/01/2020 3:04 PM RADIATION DOSE METRICS: Total DLP (mGy-cm): 1174.52 FINDINGS: Right common carotid artery: No stenosis. No dissection or occlusion. Right internal carotid artery: No stenosis of the extracranial segment. No dissection or occlusion. Right external carotid artery: No occlusion or stenosis of the origin. Left common carotid artery: Calcified and noncalcified atherosclerotic plaque at the carotid bulb. No significant stenosis. No dissection or occlusion. Left internal carotid artery: Mild stenosis at the proximal left internal carotid artery. No dissection or occlusion. Left external carotid artery: No occlusion or stenosis of the origin. Right vertebral artery: No stenosis. No dissection or occlusion. Left vertebral artery: No stenosis. No dissection or occlusion. Soft tissues: Normal. No significant soft tissue swelling. Bones/joints: No acute fracture. CT/CT angio headneck* [id number] IMPRESSION: 1. Mild stenosis at the proximal left internal carotid less than 50% narrowing by NASCET criteria. 2. No significant stenosis or occlusion. REFERENCES: NASCET CRITERIA. The degree of internal carotid artery stenosis is based on NASCET criteria. Normal is no stenosis. Mild is less than 50% stenosis. Moderate is 50-69% stenosis. Severe is 70% to 99% stenosis. Total occlusion is no detectable patent lumen. Radiation Dose CTDIVOL = (mGy): DLP = 1174.52~1174.52 (mGy-cm) Dictated By:Rob Perry DOSigned By:Rob Perry DOSigned Date/Time:10/01/20 1536DD/ [address] [address]VT Scan ReportSigned with Addenda Patient: Brisa Marsahll #: [id number]: [id number]#:[id number]/Sex: 74 / FADM Date: 10/01/20Loc: ERRoom/Bed:Attending Dr: Ordering Provider/Ordering MD: Zana Guevara MD Date of Service: 10/01/20 Procedure(s): CT angio chest PE protcl [id number] Accession Number(s): [id number] Report Number: [id number]/CT angio chest PE protcl [id number] THIS REPORT CONTAINS FINDINGS THAT MAY BE CRITICAL TO PATIENT CARE. The findings were verbally communicated via telephone conference with Zana Guevara at 3:59 PM CDT on 10/01/2020. The findings were acknowledged and understood. Radiation Dose CTDIVOL = (mGy): DLP = 532.09 (mGy-cm) Addendum Dictated By: Rob Perry DOAddendum Signed By: Rob Perry DOSigned Date/Time:10/01/20 1604Addendum Cosigned By: PROCEDURE INFORMATION: Exam: CTA Chest With Contrast Exam date and time: 10/01/2020 2:28 PM Age: 74 years old Clinical indication: Dyspnea; Additional info: HX of dvt, tachycardia, altered TECHNIQUE: Imaging protocol: Computed tomographic angiography of the chest with contrast. 3D rendering (Not supervised by radiologist): MIP and/or 3D reconstructed images were created by the technologist. Radiation optimization: All CT scans at this facility use at least one of these dose optimization techniques: automated exposure control; mA and/or kV adjustment per patient size (includes targeted exams where dose is matched to clinical indication); or iterative reconstruction. Contrast material: VISIPAQUE 320; Contrast volume: 50 ml; Contrast route: INTRAVENOUS (IV); COMPARISON: CR (CHEST, ) 10/01/2020 2:29 PM RADIATION DOSE METRICS: Total DLP (mGy-cm): 532.09 FINDINGS: Pulmonary arteries: Nonocclusive thrombus noted within a distal left upper lobar branch extending into the segmental branches. There is also nearly occlusive thrombus extending along posterior basilar segmental and subsegmental branches. Aorta: Unremarkable. No aortic aneurysm. No aortic dissection. Lungs: Unremarkable. No consolidation. No masses. Pleural spaces: Unremarkable. No pneumothorax. No pleural effusion. Heart: RV/LV ratio is greater than 1 suggestive of right heart strain. No cardiomegaly. No pericardial effusion. Lymph nodes: Unremarkable. No enlarged lymph nodes. Stomach and bowel: Moderate hiatal hernia containing portion of the stomach. Mild fluid-filled distention of the esophagus. Bones/joints: No acute fracture. Soft tissues: Unremarkable. CT/CT angio chest PE protcl [id number] IMPRESSION: Multifocal pulmonary emboli within both lungs as described in the body of the report. Imaging appearance suggestive of right heart strain. Radiation Dose CTDIVOL = (mGy): DLP = 532.09 (mGy-cm) Dictated By:Rob Perry DOSigned By:Rob Perry DOSigned Date/Time:10/01/20 1548DD/ 1546 [facility] [place], [place] [address]VJ Scan ReportSigned Patient: Brisa Marshall #: [id number]: 1945cct#:[id number]/Sex: 74 / FADM Date: 10/01/20Loc: ERRoom/Bed:Attending Dr: Ordering Provider/Ordering MD: Ravindra Estevez DO Date of Service: 10/01/20 Procedure(s): CT head wo con* [id number] Accession Number(s): [id number] Report Number: [id number] PROCEDURE INFORMATION: Exam: CT Head Without Contrast Exam date and time: 10/01/2020 2:24 PM Age: 74 years old Clinical indication: Altered mental status/memory loss; Confusion or disorientation; Additional info: AMS TECHNIQUE: Imaging protocol: Computed tomography of the head without contrast. Radiation optimization: All CT scans at this facility use at least one of these dose optimization techniques: automated exposure control; mA and/or kV adjustment per patient size (includes targeted exams where dose is matched to clinical indication); or iterative reconstruction. COMPARISON: CT neck w con* [id number] 12/10/2013 10:58 AM RADIATION DOSE METRICS: Total DLP (mGy-cm): 825.04 FINDINGS: Brain: Normal. No hemorrhage. Moderate diffuse cerebral atrophy and mild periventricular white matter low attenuation change suggestive of chronic small vessel ischemic disease. No mass effect. Cerebral ventricles: No ventriculomegaly. Paranasal sinuses: Visualized sinuses are unremarkable. No fluid levels. Mastoid air cells: Visualized mastoid air cells are well aerated. Bones/joints: Unremarkable. No acute fracture. Soft tissues: Unremarkable. CT/CT head wo con* [id number] IMPRESSION: 1. No acute intracranial abnormality. 2. Moderate diffuse cerebral atrophy and mild sequela of chronic small vessel ischemic disease. Radiation Dose CTDIVOL = (mGy): DLP = 825.04 (mGy-cm) Dictated By:Rob Perry DOSigned By:Rob Perry DOSigned Date/Time:10/01/20 1527DD/ [address] [address]KQub ReportSigned Patient: Brisa Marshall #: [id number]: 8Acct#:[id number]/Sex: 74 / FADM Date: 10/01/20Loc: ERRoom/Bed:Attending Dr: Ordering Provider/Ordering MD: Ravindra Estevez DO Date of Service: 10/01/20 Procedure(s): XR chest 1V portable [id number] Accession Number(s): [id number] Report Number: [id number] PROCEDURE INFORMATION: Exam: XR Chest Exam date and time: 10/01/2020 2:24 PM Age: 74 years old Clinical indication: Cough and dyspnea; Additional info: Dyspnea/cough TECHNIQUE: Imaging protocol: XR of the chest. Views: 1 view. COMPARISON: CR XR chest 1V portable [id number] 09/06/2020 4:38 PM FINDINGS: Lungs: Hyperinflated lungs. No focal consolidation. Pleural spaces: Unremarkable. No pleural effusion. No pneumothorax. Heart/Mediastinum: Unremarkable. No cardiomegaly. 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 XR/XR chest 1V portable [id number] IMPRESSION: Hyperinflated lungs. Findings may reflect obstructive lung disease in the appropriate clinical context. No focal consolidation. Dictated By:Rob Perry DOSigned By:Rob Perry DOSigned Date/Time:10/01/20 1506DD/ 1504 Critical Care Time Critical Care Time: Attestation: Given the high probability of imminent or life threatening deterioration of the patient?s condition without intervention, the patient was immediately assessed by myself and the nurse, and cardiac monitoring initiated. The patient was also placed on oxygen and continuous pulse oximetry initiated. During the course of the patient?s stay, I spent a considerable amount of time at the bedside performing serial re-evaluations of the patient?s hemodynamic and clinical status because of the recognized potential threat to life or limb in this condition. Clinical management of this patient involved high complexity decision making to assess, manipulate, and support vital organ system failure. I then had a chance to review all of the available laboratory and radiographic studies obtained today, and I also reviewed old records available to me at the time. Sequential vital signs were obtained. Critical care time noted below was time spent engaged in work directly related to the individual patient?s care, not including time performing procedures; however it does include time spent at the immediate bedside or elsewhere on the floor or unit. TOTAL CRITICAL CARE TIME ELAPSED: 32 minutes. BODY SYSTEM AT HIGHEST RISK: Cardiac/Pulmonary Discharge Plan Discharge Patient Disposition: Admitted As Inpatient Admit Provider: Carlos Manuel Sharp Clinical Impression: Altered mental state, Septic shock, Fever, Elevated troponin Condition: Stable Coding Level of Care Code ED General Hardware Salesperson for Lefty Menjivar
[2020-10-01] MEDS: acetaminophen 650 mg Supp PR (14:46)
[2020-10-01] MEDS: cefepime 1,000 MG in sodium chloride 0.9% (plus) 50 ML 100 MG IV (14:48)
[2020-10-01] MEDS: vancomycin 1,000 MG in sodium chloride 0.9% 250 ML 250 MG IV ×2 (14:49→19:24)
[2020-10-01 14:50] LABS: Basophils # 0.1 10^3/uL (0.0-0.1); Basophils % 0.4 %; Eosinophils # 0.2 10^3/uL (0.0-0.8); Eosinophils % 1.6 %; Hematocrit 37.7 % (37.0-47.0); Hemoglobin 13.5 g/dL (11.5-15.3); Lymphocytes # 1.6 10^3/uL (0.8-4.8); Lymphocytes % 14.5 %; Mean Corpuscular HGB Conc 35.8 g/dL (30.0-36.0); Mean Corpuscular Hemoglobin 34.4 pg (28.0-34.0); Mean Corpuscular Volume 96.2 fl (81-99); Mean Platelet Volume 10.5 fL (7.4-10.4); Monocytes # 1.3 10^3/uL (0.2-0.9); Monocytes % 11.1 %; Neutrophils % 70.8 %; Nucleated Red Blood Cells # 0.4 /100WBC; Nucleated Red Blood Cells % 3.8 %; Platelet Count 185 10^3/cmm (130-400); Red Blood Count 3.92 10^6/uL (4.1-5.3); Red Cell Distribution Width 18.4 % (12.1-15.1); White Blood Count 11.3 10^3/uL (4.0-10.0)
[2020-10-01 15:08] LABS: Ketone (Acetest) Serum Negative (Negative)
[2020-10-01] MEDS: iodixanol 320 mg/mL 100mL Btl IV ×2 (15:12→15:14)
[2020-10-01 15:16] LABS: Troponin(5th) Baseline 76 ng/L (0-10)
[2020-10-01 15:18] LABS: Alanine Aminotransferase 15 U/L (0-33); Albumin Level 3.4 g/dL (3.5-5.2); Alkaline Phosphatase 74 IU/L (35-105); Anion Gap 23.1 (5-19); Aspartate Amino Transferase 33 U/L (0-32); Blood Urea Nitrogen 53 mg/dL (8-23); Calcium 10.9 mg/dL (8.5-10.5); Carbon Dioxide 21 mmol/L (22-29); Chloride 112 mmol/L (98-107); Globulin 2.2 g/dL (1.3-4.6); Glucose 172 mg/dL (65-115); Lipase 75 U/L (13-60); Osmolality Calculated 334 mOsm/kg (285-295); Potassium 3.1 mmol/L (3.5-5.1); Sodium 153 mmol/L (136-145); Total Bilirubin 0.5 mg/dL (0.15-1.2); Total Protein 5.6 g/dL (6.6-8.7)
[2020-10-01 15:45] LABS: Acetaminophen < 5.0 ug/mL (10-30); Creatine Phosphokinase 535 U/L (26-192); Lactic Sepsis W/Reflex 4.1 mmol/L (0.5-2.2); Salicylate < 0.3 mg/dL (3-10)
[2020-10-01] MEDS: aspirin 300 mg Supp PR (15:52)
[2020-10-01 16:07] LABS: Amphetamines Screen Urine Negative (Negative); Barbiturates Screen Urine Negative (Negative); Benzodiazepines Screen Urine Negative (Negative); Cocaine Screen Urine Negative (Negative); Opiate Screen Urine Positive (Negative); PCP Screen Urine Negative (Negative); THC Screen Urine Negative (Negative)
[2020-10-01 16:19] LABS: Specific Gravity, Urine 1.015 (1.005-1.030); Urine Appearance Cloudy (CLEAR); Urine Color Dark Yellow (Yellow); pH Urine 6 (5-7)
[2020-10-01 16:20] LABS: Bilirubin Urine 1+ (Negative); Blood Urine 2+ (Negative); Glucose Urine UA Norm (Normal); Ketones Urine 2+ (Negative); Nitrate Urine Negative (Negative); Protein Urine 1+ (Negative); Urobilinogen Urine 1 mg/dL (Negative)
[2020-10-01] MEDS: heparin 5,000 unit/mL INJ 1 mL 4000 UNIT IVP (16:20)
[2020-10-01 16:21] LABS: Add Urine Microscopic? YES; Leukocyte Esterase Urine Negative (Negative)
[2020-10-01] MEDS: heparin drip 25,000 UNIT/500 ML PREMIX 22.23 UNIT IV (16:21)
[2020-10-01 16:22] LABS: Add Urine Culture? No; Bacteria Urine 1+ /hpf; Mucus Urine TRACE /hpf; RBC Urine 0-4 /hpf (0-2); WBC Urine 0-4 /hpf (0-5)
--- NOTE | 2020-10-01 16:24 | ECG_ITS ---
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 Measurements Intervals [place] Rate: 85 P: 73 MN: 135 QRS: 38 QRSD: 76 T: 262 QT: 373 QTc: 445 Interpretive Statements SINUS RHYTHM LOW QRS VOLTAGE IN PRECORDIAL LEADS POSSIBLE SEPTAL MYOCARDIAL INFARCTION , PROBABLY OLD MODERATE T-WAVE ABNORMALITY, CONSIDER LATERAL ISCHEMIA MODERATE T-WAVE ABNORMALITY, CONSIDER INFERIOR ISCHEMIA Compared to ECG 10/01/2020 14:20:32 Low QRS voltage now present Sinus tachycardia no longer present Myocardial infarct finding still present T-wave abnormality still present Possible ischemia still present Electronically Signed On 10-01-2020 20:55:25 CDT by Valery Ornelas M.D. [id number]
[2020-10-01 16:33] LABS: Reflex Lactate Order REFLEX LACTIC ORDERD
[2020-10-01 16:37] LABS: INR 1.77 (0.8-1.2); Partial Thromboplastin Time 26.3 SECONDS (23.9-36.7)
[2020-10-01 16:49] LABS: SARS Covid-2 Antigen Negative (Negative)
--- NOTE | 2020-10-01 16:49 | P.HP_ITS ---
Providers/Chief Complaint Primary Care Provider: HOLDEN Maurice Chief Complaint: RESP DISTRESS History of Present Illness Joseline Marshall is a 74 year old female with a past medical history of hypothyroidism, GERD, hyperlipidemia, depression, recent diagnosis of compression fracture of lumbar spine who presents [facility] due to nonresponsiveness and altered mental status. Currently patient is she is awake, when the nurse asked her to put the thermometer under her tongue she is able to do that, she does not follow commands, she did say a few words according to nursing staff, she is on 2 L nasal cannula, she is maintaining her airway, she is normotensive, her GCS is 10, I was told that she was a found unresponsive at home, her daughter called, she received Neosporin for her hypotensive episode on route to the hospital. Most of the history was obtained by daughter who I called, daughter tells me that patient has been doing okay, she has not had any recent health problems, she is normally alert oriented x3, no evidence of dementia, she ambulates, she can feed herself, she is fairly healthy, has not had any recent hospitalizations. No cardiac history, no history of smoking, history of lung disease, no she of diabetes, no stroke strokes. 2 weeks ago, patient started to develop severe back pain, she sees a local clinic for back pain, is not on any narcotics, she presented to the emergency room due to worsening back pain, inability to stand, she was diagnosed with a compression fracture, and sent home with meloxicam, she was also complaining of left leg pain. She daughter tells me that she was using the meloxicam for back pain, no narcotic use, no drug use, her pain was more tolerable. However roughly 3 days ago she started to become less responsive, was confused, did not answer questions appropriately, no fevers, no cough, no chest pain complaints, no shortness of breath, no abdominal complaints, nausea, no vomiting, no diarrhea, no headache, no blurry vision, no strokelike symptoms, no slurring of her speech, no facial droop, she has received the first dose of the Covid vaccine, there is nothing out of the ordinary for the last few days except the back pain, no significant complaints except the back pain. In the emergency room she was found to have bilateral pulmonary emboli with evidence of right heart strain, ST elevations in V1 V2, evidence of a UTI, hyponatremia, acute kidney injury, lactic acidosis, she was normotensive, noted heart rates as high as 112, saturating high 90s on 2 L, she was placed on heparin drip, hospitalist team was called for admission Review of Systems General: Reports: ROS unobtainable due to medical condition Medications/Allergies Home Medications Medication Instructions Recorded Confirmed Last Taken Type lidocaine [Lidoderm] 1 patch TOPICAL Q24H #15 ea MDD 1 09/25/20 10/01/20 Unknown Rx meloxicam 15 mg PO DAILY #14 tab 09/25/20 10/01/20 Unknown Rx buspirone 30 mg PO BEDTIME 10/01/20 10/01/20 Unknown History citalopram 40 mg PO DAILY 10/01/20 10/01/20 Unknown History levothyroxine 75 mcg PO DAILY 10/01/20 10/01/20 Unknown History omeprazole 20 mg PO DAILY 10/01/20 10/01/20 Unknown History pravastatin 80 mg PO DAILY 10/01/20 10/01/20 Unknown History quetiapine 50 mg PO BEDTIME 10/01/20 10/01/20 Unknown History Allergies Allergy/AdvReac Type Severity Reaction Status Date / Time fluoxetine [From Prozac] Allergy ALGY-Anaphy Verified 09/06/20 16:02 laxis PFSH Acute PFSH: Medical History (Updated 10/01/20 @ 17:07 by Carlos Manuel Sharp MD) Chronic back pain GERD (gastroesophageal reflux disease) Hyperlipidemia Hypothyroidism Surgical History (Updated 10/01/20 @ 16:56 by Carlos Manuel Sharp MD) History of hysterectomy Family History (Updated 10/01/20 @ 16:57 by Carlos Manuel Sharp MD) Mother Breast cancer Social History (Updated 10/01/20 @ 16:57 by Carlos Manuel Sharp MD) Smoking and tobacco status: never smoked Alcohol intake: never Substance/Drug Use: never Vitals/I&O/Wt Last Vital Signs Temp 97.8 F 10/01/20 16:32 Pulse 83 10/01/20 16:32 Resp 19 H 10/01/20 16:32 BP 117/72 10/01/20 16:32 Pulse Ox 100 10/01/20 16:32 10/01/20 10/01/20 10/01/20 06:59 14:59 22:59 Intake Total 2300 / 2300 Balance 2300 / 2300 Weight last 48 hrs Weight 79.379 kg Physical Exam Const: COMMON NORMALS: no acute distress ORIENTATION/CONSCIOUSNESS: Yes awake and Yes oriented to time; not oriented to person and not oriented to place HENMT: COMMON NORMALS: normocephalic Eye: COMMON NORMALS: Equal, round and reactive pupils present Lymph: LYMPHATIC: no lymphadenopathy noted Chest: COMMONS NORMALS: normal inspection of the chest Resp: COMMON NORMALS: normal respiratory effort, No retractions, No use of accessory muscles and clear to auscultation bilaterally Cardio: COMMON NORMALS: no JVD, regular rate, regular rhythm, S1 normal heart sound present, S2 normal heart sound present and No murmurs present (Cardio) GI: COMMON NORMALS: Normal to inspection, nondistended, normoactive bowel sounds present, Soft to palpation, non-tender and No hepatosplenomegaly present : COMMON NORMALS: Yes no CVA tenderness Extremity: COMMON NORMALS: no pedal edema Neuro: FABIOLA COMA SCALE: document GCS findings Fabiola coma scale eye opening: Spontaneous [place] coma scale verbal response: None Fabiola coma scale motor response: Localising Fabiola coma scale total score: 10 SENSORIUM/ORIENTATION: Yes alert, No oriented to person, No oriented to place, No oriented to time and Yes Orientation impaired Urinary Catheter Management^: Brito: Cath Placed During This Visit: yes Urinary Catheter Date of Insertion: 10/01/20 Urinary Catheter Time of Insertion: 14:27 Sepsis: Is patient septic: Yes Focused sepsis exam performed: Yes Date exam was performed: 10/01/20 Time exam was performed: 16:00 Data : 10/01/20 14:15 10/01/20 14:15 Micro: Microbiology 10/01/20 14:30 Blood Culture - Preliminary Blood SPECIMEN COLLECTED 10/01/20 14:25 Blood Culture - Preliminary Blood SPECIMEN COLLECTED A&P Assessment and plan (1) Acute encephalopathy: -ct angio chest: Multifocal pulmonary emboli within both lungs as described in the body of the report. Imaging appearance suggestive of right heart strain. -CTA head:No large vessel stenosis or occlusion. Mild stenosis at the proximal left internal carotid less than 50% narrowing by NASCET criteria. No significant stenosis or occlusion. -CT head: 1. No acute intracranial abnormality. 2. Moderate diffuse cerebral atrophy and mild sequela of chronic small vessel ischemic disease. -EKG with st depression II, III, V3-V6, AVF, ST elevation V1, V2 -WBC 11.3, with tachycardia, normotensive, requiring 2 L, T-max 100.9 loreto-Sporn was required for low blood pressure and EMS route to the hospital, lactic acid 4.1, has sepsis criteria -UA with evidence of UTI -NSTEMI, baseline troponin 76, EKG changes as above -Hypovolemic hypernatremia secondary dehydration serum sodium 153 -VEDA, creatinine 1.6 secondary to dehydration -Rhabdomyolysis, CPK 535 -Lactic acidosis, 4.1 -Increased anion gap lactic acidosis -Awaiting TSH, inflammatory markers Plan: -Currently patient is normotensive, on 2 L, temperature 97.8, GCS 10 -Does not require ICU admission, no pressors required, no intubation required at this point -Continue broad-spectrum antibiotic therapy vancomycin, Primaxin -Follow blood cultures, urine cultures, sputum cultures, Covid PCR, urine bacterial antigens -Start on heparin drip -We will order bilateral extremity ultrasounds, cardiac echo -Telemetry monitoring -Start IV fluids, monitor urine output -Continue IV levothyroxine, await TSH to evaluate for myxedema coma -Oxygen therapy, monitor lactic acid -Replace potassium -Urine toxicology positive for opiates, will do a trial of Narcan to see if this improves her mentation -Monitor neurologic status, aspiration precautions, seizure precautions, neurochecks -Aspirin, statin -Protonix for GI prophylaxis -Heparin for DVT prophylaxis -Full code -Cardiology on consult Status: Acute (2) Bilateral pulmonary embolism: Status: Acute (3) Hypoxia: Status: Acute (4) Hypernatremia: Status: Acute (5) Hypokalemia: Status: Acute (6) VEDA (acute kidney injury): Status: Acute (7) Lactic acidosis: Status: Acute (8) Rhabdomyolysis: Status: Acute (9) NSTEMI (non-ST elevated myocardial infarction): Status: Acute (10) Sepsis: Status: Acute (11) Rhabdomyolysis: Status: Acute Attestations Medical Necessity Statement*: Patient requires hospitalization, inpatient, greater than 2 midnights, for bilateral pulmonary emboli, acute encephalopathy, acute renal failure, lactic acidosis, rhabdomyolysis, NSTEMI, right heart strain, Coding Level of Care Code Acute Hospitalist Medical Director for Chg Fwd Diagnoses Acute encephalopathy G93.40 Bilateral pulmonary embolism I26.99 Hypoxia R09.02 Hypernatremia E87.0 Hypokalemia E87.6 VEDA (acute kidney injury) N17.9 Lactic acidosis E87.2 Rhabdomyolysis M62.82 NSTEMI (non-ST elevated myocardial infarction) I21.4 Sepsis A41.9 Rhabdomyolysis M62.82 Sepsis Evaluation Sepsis screening result: Possible Severe Sepsis Risk Current stage of sepsis: sepsis Initial hypotension due to sepsis/infection: SBP < 90 mmHg Possible source: genitourinary Focused Exam Vital Signs Temp Pulse Pulse Resp BP BP Pulse Ox 10/01/20 16:32 97.8 F 83 19 H 117/72 100 10/01/20 16:23 79 16 100 10/01/20 15:48 87 20 H 123/75 100 10/01/20 14:25 105 H 29 H 101/78 97 10/01/20 14:19 100.9 F H 112 H 18 110/73 97 Cardiovascular exam: Present tachycardia Capillary refill: > 3 Seconds Peripheral pulse strength: 1+ Faint Skin exam: flushed Date exam was performed: 10/01/20 Time exam was performed: 17:00
--- NOTE | 2020-10-01 17:15 | PC.NURSE ---
Admit Note Patient admitted to CSU room 102 from ER via gurney. Covering service notified. Patient presents with AMS. Orders reviewed & will continue to monitor. Patient and/or food service sales representatives oriented to environment, equipment, and informed of the following as found in the admission booklet: patient rights & responsibilities, visitor policy, hand and respiratory hygiene practice. Other education includes: plan of care. Patient and/or food service sales representatives unable to comprehend.
[2020-10-01 17:23] LABS: NT Pro B Type Natriuretic Pept 4581 pg/mL (0-125); Thyroid Stimulating Hormone 3.53 uIU/mL (0.27-4.20)
--- NOTE | 2020-10-01 17:27 | CTR_ITS ---
PROCEDURE INFORMATION: Exam: CT Abdomen And Pelvis Without Contrast Exam date and time: 10/01/2020 5:27 PM Age: 74 years old Clinical indication: Fever; Prior surgery; Surgery date: 6+ months; Surgery type: Hyst, bladder; Additional info: Fevers, UTI, R/O stone TECHNIQUE: Imaging protocol: Computed tomography of the abdomen and pelvis without contrast. Radiation optimization: All CT scans at this facility use at least one of these dose optimization techniques: automated exposure control; mA and/or kV adjustment per patient size (includes targeted exams where dose is matched to clinical indication); or iterative reconstruction. COMPARISON: No relevant prior studies available. RADIATION DOSE METRICS: Total DLP (mGy-cm): 1400.59 FINDINGS: Lungs: Lung bases are unremarkable. Mediastinal space: There is a small hiatal hernia present. Diaphragm: Mild elevation of the left hemidiaphragm. Liver: The liver is unremarkable in appearance. Gallbladder and bile ducts: No calcified gallstones in the gallbladder. No gallbladder wall thickening. No pericholecystic fluid. No biliary dilatation. Pancreas: Mild atrophy of the pancreas. No pancreatic mass. No ductal dilatation noted. Spleen: The spleen is normal in size and appearance. Adrenal glands: The adrenal glands appear within normal limits. Kidneys and ureters: Excreted contrast material noted in the kidneys and collecting system. This would obscure the presence of small renal calculi. No renal cyst or mass. No hydronephrosis. Ureters appear unremarkable. Stomach and bowel: Partially distended stomach appears grossly unremarkable. The small bowel is unremarkable as demonstrated. No acute abnormality/inflammatory change of the colon. Appendix: No evidence of appendicitis. Intraperitoneal space: No pneumoperitoneum. No significant fluid collection. Vasculature: The aorta is atherosclerotic. No aortic aneurysm. Lymph nodes: No enlarged lymph nodes. Urinary bladder: There is a Brito catheter in the urinary bladder. Urinary bladder contains excreted contrast and appears grossly unremarkable. Reproductive: Status post hysterectomy. Bones/joints: Scoliosis and advanced degenerative change of the lumbar spine. No acute osseous abnormality. Soft tissues: The soft tissues appear unremarkable. CT/CT abdomen pelvis wo con [id number] IMPRESSION: 1. Excreted contrast material noted in the kidneys and collecting system. This would obscure the presence of small renal calculi. No renal cyst or mass. No hydronephrosis. Ureters appear unremarkable. No obstructive uropathy. 2. No acute abnormality demonstrated in the abdomen and pelvis. Radiation Dose CTDIVOL = (mGy): DLP = 1400.59 (mGy-cm)
--- NOTE | 2020-10-01 17:27 | USR_ITS ---
PROCEDURE INFORMATION: Exam: US Duplex Lower Extremity Veins, Bilateral Exam date and time: 10/01/2020 5:27 PM Age: 74 years old Clinical indication: Pain; Leg, lower; Left; Additional info: Left leg pain TECHNIQUE: Imaging protocol: Real-time duplex ultrasound of the extremities with 2-D boucher scale, color Doppler flow and spectral waveform analysis with image documentation. Complete exam focused on the bilateral lower extremity veins. COMPARISON: No relevant prior studies available. FINDINGS: Right deep veins: Unremarkable. The common femoral, femoral, proximal profunda femoral and popliteal veins are patent without thrombus. Normal Doppler waveforms. Normal compressibility and/or augmentation response. Right superficial veins: Saphenofemoral junction is patent without thrombus. Left deep veins: Unremarkable. The common femoral, femoral, proximal profunda femoral and popliteal veins are patent without thrombus. Normal Doppler waveforms. Normal compressibility and/or augmentation response. Left superficial veins: Saphenofemoral junction is patent without thrombus. Soft tissues: Unremarkable. US/CV venous duplex [facility] [id number] IMPRESSION: No evidence of deep vein thrombosis.
[2020-10-01 17:34] LABS: C Reactive Protein 13.8 mg/L (0.0-4.9)
[2020-10-01 18:23] LABS: Erythrocyte Sedimentation Rate 10 mm/hr (0-15)
[2020-10-01 18:58] LABS: Partial Thromboplastin Time > 250.0 SECONDS (23.9-36.7)
[2020-10-01] MEDS: lidocaine 1% 5 ML in potassium chloride premix 100 ML 25 ML IV (19:02)
[2020-10-01] MEDS: sodium chloride 0.9% 1,000 ML 100 ML IV (19:09)
[2020-10-01] MEDS: pantoprazole 40 mg SDV IVP (19:20)
[2020-10-01] MEDS: levothyroxine 100 mcg SDV 37.5 MCG IVP (19:21)
--- NOTE | 2020-10-01 19:53 | PC.NURSE ---
1858 Critical lab PTT greater than [address] hassan instructions to hold heparin for 4 hours and redraw PTT restart as indicated per protocol
--- NOTE | 2020-10-01 19:57 | PC.NURSE ---
Shift Note Frequent safety and comfort rounds continue. Orders and/or nursing care completed as indicated. Patient monitored for response to intervention and treatment(s). Education provided includes new medications olivier care. Patient and/or publications sales representative unable to comprehend. Will continue to monitor.
[2020-10-01 20:32] LABS: Estmated Average Glucose 111; Hemoglobin A1C 5.5 % (4.0-6.0)
[2020-10-01 21:03] LABS: Troponin 5 6HR 61.46 ng/L (0-10)
[2020-10-01 21:05] LABS: Troponin 5 6HR Delta -14.54 ng/L (0-12)
[2020-10-02] VITALS (10 sets, daily range): BP systolic 88–113; BP diastolic 59–88; PULSE 64–73; RESP 14–26; TEMP 36.5–36.8; O2SAT 95–97
[2020-10-02 00:40] LABS: Partial Thromboplastin Time 50.8 SECONDS (23.9-36.7)
--- NOTE | 2020-10-02 00:50 | PC.NURSE ---
PTT 50.8 Heparin drip is currently paused per Dr. Sharp during dayshift when PTT was >250. Orders from Dr. Mart to restart the heparin drip at 9ml/hr and follow protocol from here. Next redraw will be at 0630.
[2020-10-02] MEDS: sodium chloride 0.9% 1,000 ML 100 ML IV (06:29)
[2020-10-02 07:47] LABS: Partial Thromboplastin Time 88.6 SECONDS (23.9-36.7)
[2020-10-02 07:51] LABS: Albumin Level 2.2 g/dL (3.5-5.2); Alkaline Phosphatase 50 IU/L (35-105); Blood Urea Nitrogen 40 mg/dL (8-23); Carbon Dioxide 16 mmol/L (22-29); Chloride 123 mmol/L (98-107); Globulin 2.1 g/dL (1.3-4.6); Glucose 119 mg/dL (65-115); Osmolality Calculated 329 mOsm/kg (285-295); Sodium 154 mmol/L (136-145); Total Bilirubin 0.4 mg/dL (0.15-1.2); Total Protein 4.3 g/dL (6.6-8.7)
[2020-10-02 08:28] LABS: Alanine Aminotransferase 12 U/L (0-33); Anion Gap 18.3 (5-19); Aspartate Amino Transferase 25 U/L (0-32); Potassium 3.3 mmol/L (3.5-5.1)
[2020-10-02] MEDS: levothyroxine 100 mcg SDV 37.5 MCG IVP (10:08)
--- NOTE | 2020-10-02 10:56 | PC.CHAP ---
Pastoral Care Encounter/Spiritual Assessment Type of Contact [] Declined dehydrating press operator visit [] Patient/Family/Request visit [] Outpatient visit [] Follow-up visit [] Physician referral [] Code/Alert [x] Routine visit [] Staff referral [] Actively dying [] Patient sleeping [] Family support [] [] Out of room [] Palliative care [] [] Receiving care in room [] Pre-surgical visit [] Trauma [] Long length of stay [] ICU visit [] Other: Relational/Emotional Strength [] Patient feels connected with others/family/visitors/staff [] Distress [] Loneliness/isolation [] Abandonment Spirituality of Patient [x] Person of Cristiana [] Attends Judaism of their Cristiana [x] Believes in Prayer [] Reads Bible or Restorationism materials [] There are Spiritual issues to be addressed Watch 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 Clerk Interventions [x] Prayer [x] Active listening [x] Non-anxious presence [x] Spiritual/emotional support [] Crisis/trauma care [] Spiritual counseling [] Bereavement support [] Provided bereavement packet [] Provided Bible/devotional materials [] Provided toy/stuffed animal, coloring book to patient or family member [] Provided Communion [] Anointing/[place] [] Salvation [x] Completed spiritual assessment [] Other: Impact on Illness or Injury [] Angry [] Fearful [] Anxious [] Often cries [] Exhaustion [] Unable to work [] Unable to attend synagogue [] Unable to walk/stand [] Unable to read [] Unable to drive [] Unable to eat/drink [] Unable to sleep [] Unable to be with family [] Patient intubated [] Other: Summary Watch 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 Clerk prayed with patient and daughter Time spent with patient 10 minues
--- NOTE | 2020-10-02 11:23 | P.PN_ITS ---
Subjective Subjective: Interval history: Patient was seen this morning, she is alert, she is able to answer some questions, she tells me that her belly is hurting her, she is able to squeeze my finger, she is able to wiggle her toes, but her mentation does fade off, she is able to tell me her name, overnight no fevers, normotensive, saturating high 90s on room air Vitals/I&O/Wt Last Vital Signs Temp 98.3 F 10/02/20 07:37 Pulse 70 10/02/20 07:37 Resp 18 10/02/20 07:37 BP 111/63 10/02/20 07:37 Pulse Ox 95 10/02/20 07:37 10/01/20 10/02/20 10/02/20 22:59 06:59 14:59 Intake Total 2699.565 / 2699.565 1305 / 4004.565 55.8 / 55.8 Output Total 650 / 650 250 / 250 Balance 2699.565 / 2699.565 655 / 3354.565 -194.2 / -194.2 Weight last 48 hrs Weight 58.315 kg Weight 79.379 kg Physical Exam Const: COMMON NORMALS: no acute distress and alert ORIENTATION/CONSCIOUSNESS: Yes awake and Yes oriented to person; not oriented to place and not oriented to time Resp: COMMON NORMALS: normal respiratory effort, No retractions, No use of accessory muscles and clear to auscultation bilaterally AUSCULTATION: clear to auscultation bilaterally Cardio: COMMON NORMALS: regular rate, regular rhythm, S1 normal heart sound present and S2 normal heart sound present RATE: regular rate RHYTHM: regular rhythm HEART SOUNDS: S1 normal heart sound present and S2 normal heart sound present GI: COMMON NORMALS: Normal to inspection, nondistended, normoactive bowel sounds present, Soft to palpation and non-tender PALPATION: Yes Soft to palpation Extremity: COMMON NORMALS: no pedal edema Neuro: SENSORIUM/ORIENTATION: Yes alert, Yes oriented to person, No oriented to place and No oriented to time OTHER: Pupils equal round reactive to light, she is able to follow simple commands Urinary Catheter Management^: Brito: Cath Placed During This Visit: yes Reason for Continuing Indwelling Catheter: Acute Urinary Retention or Obstruction Urinary Catheter Date of Insertion: 08/21/21 Urinary Catheter Time of Insertion: 14:27 Data : 10/01/20 14:15 10/02/20 07:03 Micro: Microbiology 10/01/20 14:27 Bacterial Antigens - Final Urine,Voided 10/01/20 14:30 Blood Culture - Preliminary Blood SPECIMEN COLLECTED 10/01/20 14:25 Blood Culture - Preliminary Blood SPECIMEN COLLECTED A&P Assessment and plan (1) Acute encephalopathy: -ct angio chest: Multifocal pulmonary emboli within both lungs as described in the body of the report. Imaging appearance suggestive of right heart strain. -Bilateral lower extremity venous ultrasound negative for DVT -CTA head:No large vessel stenosis or occlusion. Mild stenosis at the proximal left internal carotid less than 50% narrowing by NASCET criteria. No significant stenosis or occlusion. -CT head: 1. No acute intracranial abnormality. 2. Moderate diffuse cerebral atrophy and mild sequela of chronic small vessel ischemic disease. -EKG with st depression II, III, V3-V6, AVF, ST elevation V1, V2 -WBC 11.3, tachycardia resolved, normotensive, on room air, afebrile, sepsis has resolved -UA with evidence of UTI -NSTEMI, baseline troponin 76, EKG changes as above -Hypovolemic hypernatremia secondary dehydration serum sodium 153 -VEDA, creatinine 0.9 secondary to dehydration -Rhabdomyolysis, CPK 535 -Lactic acidosis, 2.0 -Increased anio afebrile, n gap lactic acidosis -TSH within normal meds -Pro-Ha 0.30, CRP 13.8 Plan: -Currently patient is normotensive, on 2 L, temperature 97.8 -Mentation has significantly improved, does drowse off during questioning -Does not require ICU admission, no pressors required, no intubation required at this point -Continue broad-spectrum antibiotic therapy vancomycin, Primaxin -Follow blood cultures, urine cultures, sputum cultures, Covid PCR, urine bacterial antigens -on heparin drip -We will order bilateral extremity ultrasounds, cardiac echo -Telemetry monitoring -Serum sodium remains 154 after 24 hours of IV hydration with normal saline, switch to D5 water, free water deficit 2.6 L, serum sodiums every 4 hours -Oxygen therapy, monitor lactic acid -Replace potassium -Urine toxicology positive for opiates, Narcan as needed -Monitor neurologic status, aspiration precautions, seizure precautions, neurochecks -Aspirin, statin, telemetry monitoring -Protonix for GI prophylaxis -Heparin for DVT prophylaxis -Full code -Cardiology on consult Status: Acute (2) Bilateral pulmonary embolism: Status: Acute (3) Hypoxia: Status: Acute (4) Hypernatremia: Status: Acute (5) Hypokalemia: Status: Acute (6) VEDA (acute kidney injury): Status: Acute (7) Lactic acidosis: Status: Acute (8) Rhabdomyolysis: Status: Acute (9) NSTEMI (non-ST elevated myocardial infarction): Status: Acute (10) Sepsis: Status: Acute Attestations Medical Necessity Statement*: Patient requires hospitalization for acute encephalopathy, bilateral pulmonary body, right heart strain, UTI, Coding Level of Care Code Acute 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
--- NOTE | 2020-10-02 11:36 | PM.CONSULT ---
Providers/Reason For Consult Consulting Physician/Specialty*: Dr. Ornelas, cardiology Reason for Consult*: Abnormal EKG, elevated troponin Attending Physician: Carlos Manuel Sharp MD Primary Care Provider: HOLDEN Maurice History of Present Illness History of Present Illness Joseline Marshall is a 74 year old female with past medical history of hyperlipidemia, depression, hypothyroidism, GERD, h/o compression fracture of lumbar spine [place] [facility] [place] status. As per record, she was found unresponsive at home. CPK was increased and creatinine was 1.6. No cardiac history or strokes. For last few days she has been less responsive, confused. No fevers,cough, chest pain or shortness of breath. She was found to have bilateral pulmonary emboli and right heart starin on CTA chest. EKG showed ST depression and T wave inversion in inferolateral leads. Minimal ST segment elevation in V1 and V2. She was started on heparin gtt and I have been asked to assist and evaluate in further management. Review of Systems General: Reports: ROS unobtainable due to medical condition Meds/Allergies Home Medications and Allergies Home Medications Medication Instructions Recorded Confirmed Last Taken Type lidocaine [Lidoderm] 1 patch TOPICAL Q24H #15 ea MDD 1 09/25/20 10/01/20 Unknown Rx meloxicam 15 mg PO DAILY #14 tab 09/25/20 10/01/20 Unknown Rx buspirone 30 mg PO BEDTIME 10/01/20 10/01/20 Unknown History citalopram 40 mg PO DAILY 10/01/20 10/01/20 Unknown History levothyroxine 75 mcg PO DAILY 10/01/20 10/01/20 Unknown History omeprazole 20 mg PO DAILY 10/01/20 10/01/20 Unknown History pravastatin 80 mg PO DAILY 10/01/20 10/01/20 Unknown History quetiapine 50 mg PO BEDTIME 10/01/20 10/01/20 Unknown History Allergies Allergy/AdvReac Type Severity Reaction Status Date / Time fluoxetine [From Prozac] Allergy ALGY-Anaphy Verified 09/06/20 16:02 laxis Current Medications Current Medications Generic Name Dose Route Start Last Admin Trade Name Freq PRN Reason Stop Dose Admin Aspirin 81 mg 10/01/20 17:27 10/02/20 09:43 Aspirin 81 Mg Ec Tablet PO Not Given DAILY JAYJAY Atorvastatin Calcium 40 mg 10/01/20 21:00 10/01/20 20:17 Atorvastatin 40 Mg Tablet PO Not Given BEDTIME JAYJAY Heparin Sodium/Sodium Chloride 25,000 unit in 500 mls @ 0 mls/hr 10/01/20 16:15 10/02/20 07:05 Heparin Drip IV 5.04 unit/kg/hr .Q0M JAYJAY 8 mls/hr Titration Protocol Per Protocol Imipenem/Cilastatin Sodium 250 100 mls @ 200 mls/hr 10/01/20 18:00 10/02/20 06:59 mg/ Sodium Chloride IV Infused Q6H JAYJAY Infusion Protocol Levothyroxine Sodium 37.5 mcg 10/01/20 18:00 10/02/20 10:08 Levothyroxine 100 Mcg Sdv IVP 37.5 mcg DAILY JAYJAY Administration Lidocaine 1 patch 10/01/20 17:27 10/02/20 10:02 Lidocaine 5% Patch TOPICAL Not Given Q24H JAYJAY Pantoprazole Sodium 40 mg 10/01/20 18:00 10/01/20 19:20 Pantoprazole 40 Mg Sdv IVP 40 mg Q24H JAJYAY Administration PFSH Acute PFSH: Medical History Chronic back pain GERD (gastroesophageal reflux disease) Hyperlipidemia Hypothyroidism Surgical History History of hysterectomy Family History Mother Breast cancer Social History Smoking and tobacco status: never smoked Alcohol intake: never Substance/Drug Use: never Vitals/I&O/Wt Last Vital Signs Temp 98.3 F 10/02/20 07:37 Pulse 70 10/02/20 07:37 Resp 18 10/02/20 07:37 BP 111/63 10/02/20 07:37 Pulse Ox 95 10/02/20 07:37 10/01/20 10/02/20 10/02/20 22:59 06:59 14:59 Intake Total 2699.565 / 2699.565 1305 / 4004.565 567.467 / 567.467 Output Total 650 / 650 250 / 250 Balance 2699.565 / 2699.565 655 / 3354.565 317.467 / 317.467 Weight last 48 hrs Weight 128 lb 9 oz Weight 175 lb Physical Exam Narrative: EXAM NARRATIVE: GENERAL: Averagely built and averagely nourished in no acute distress HEENT: No pallor or icterus. NECK: No JVD. CARDIOVASCULAR SYSTEM: S1-S2 regular. No murmur rubs or gallops. RESPIRATORY SYSTEM: Chest clear to auscultation. No wheezes rhonchi or rubs heard. ABDOMEN: Soft, nontender and nondistended. Normal bowel sounds present. EXTREMITIES: 1+ edema. tenderness in leg, GULLET SLITTER: Patient is alert and not really answering any questions Urinary Catheter Management^: Brito: Cath Placed During This Visit: yes Reason for Continuing Indwelling Catheter: Acute Urinary Retention or Obstruction Urinary Catheter Date of Insertion: 10/01/20 Urinary Catheter Time of Insertion: 14:27 Data Micro: Micro: Microbiology 10/01/20 14:27 Bacterial Antigens - Final Urine,Voided 10/01/20 14:30 Blood Culture - Pr eliminary Blood SPECIMEN COLLE OLIVA 10/01/20 14:25 Blood Culture - Pr eliminary Blood SPECIMEN [facility] A&P Assessment and plan (1) Acute encephalopathy: Status: Acute (2) Bilateral pulmonary embolism: Status: Acute (3) NSTEMI (non-ST elevated myocardial infarction): Type 2 NSTEMI in setting of PE. ST-T wave changes noted on EKG. May benefit from stress test later in hospitalization once mentation improves. -I will discuss with the daughter. Status: Acute (4) Rhabdomyolysis: Status: Acute Additional A&P Information Hypernatremia Dehydration Hypothyroidism VEDA Thank you for allowing me to participate in patient's care. Please feel free to call with question or concerns. 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
[2020-10-02] MEDS: dextrose 5% 1,000 ML 75 ML IV (11:43)
[2020-10-02] MEDS: lidocaine 1% 5 ML in potassium chloride premix 100 ML 50 ML IV (11:59)
[2020-10-02 14:09] LABS: Basophils # 0.1 10^3/uL (0.0-0.1); Basophils % 0.5 %; Hematocrit 29.2 % (37.0-47.0); Hemoglobin 9.5 g/dL (11.5-15.3); Lymphocytes # 0.7 10^3/uL (0.8-4.8); Lymphocytes % 6.7 %; Mean Corpuscular HGB Conc 32.5 g/dL (30.0-36.0); Mean Corpuscular Hemoglobin 34.2 pg (28.0-34.0); Mean Platelet Volume 10.9 fL (7.4-10.4); Monocytes # 0.6 10^3/uL (0.2-0.9); Monocytes % 5.4 %; Neutrophils # 8.86 10^3/uL (1.8-7.7); Neutrophils % 86.2 %; Nucleated Red Blood Cells # 0.1 /100WBC; Nucleated Red Blood Cells % 1.3 %; Platelet Count 116 10^3/cmm (130-400); Red Blood Count 2.78 10^6/uL (4.1-5.3); Red Cell Distribution Width 19.3 % (12.1-15.1); White Blood Count 10.3 10^3/uL (4.0-10.0)
[2020-10-02 14:10] LABS: Partial Thromboplastin Time 71.3 SECONDS (23.9-36.7)
[2020-10-02 14:11] LABS: Sodium 153 mmol/L (136-145)
--- NOTE | 2020-10-02 17:27 | USCV_ITS ---
Joseline Marshall Age: 74 Gender: F : 1945 Exam Date: 10/02/2020 06:25 Ordering Phys: Carlos Manuel Sharp MD Technologist: Queenie Ackerman Exam Location: [facility] [place] Indication: Right heart strain BP: 108 / 65 HR: 70 Rhythm: Sinus Technical Quality: Fair MEASUREMENTS (Male / Female) Normal Values 2D ECHO LV Diastolic Diameter PLAX 3.1 cm 4.2 - 5.9 / 3.9 - 5.3 cm LV Systolic Diameter PLAX 1.9 cm LV Chamber Size 2.5 cm IVS Diastolic Thickness 1.5 cm 0.6 - 1.0 / 0.6 - 0.9 cm IVS Systolic Thickness 1.4 cm LVPW Diastolic Thickness 0.9 cm 0.6 - 1.0 / 0.6 - 0.9 cm LVPW Systolic Thickness 1.0 cm RV Chamber Size 1.9 cm LVOT Diameter 2.0 cm LV Ejection Fraction 2D Teich 71.9 % LV Ejection Fraction MOD 2C 73.6 % LV Ejection Fraction 2C AL 72.6 % LA Diameter 2.4 cm LA Width 2.1 cm LA Height 4.3 cm RA Width 1.9 cm RA Height 3.7 cm Aorta at Sinotubular Diameter 2.6 cm M-MODE LV Diastolic Diameter MM 5.6 cm 4.2 - 5.9 / 3.9 - 5.3 cm LV Systolic Diameter MM 3.9 cm LV Ejection Fraction MM Teich 57.0 % IVS Diastolic Thickness MM 1.2 cm 0.6 - 1.0 / 0.6 - 0.9 cm IVS Systolic Thickness MM 1.4 cm LVPW Diastolic Thickness MM 1.2 cm 0.6 - 1.0 / 0.6 - 0.9 cm LVPW Systolic Thickness MM 2.0 cm Aortic Annulus Diameter 3.4 cm LA Ao Ratio MM 0.8 DOPPLER AV Peak Velocity 123.0 cm/s LVOT Peak Velocity 136.0 cm/s AV Area Cont Eq vti 3.4 cm squared AV Area Cont Eq pk 3.3 cm squared MV Area PHT 2.8 cm squared Mitral E to A Ratio 0.8 MV E' Velocity 41.5 cm/s Mitral E to MV E' Ratio 10.3 Mitral E to LV E' Lateral Ratio 8.2 Mitral E to LV E' Septal Ratio 14.3 TR Peak Velocity 216.0 cm/s TR Peak Gradient 18.7 mmHg TV Peak E Velocity 37.0 cm/s Right Atrial Pressure 3.0 mmHg Pulmonary Artery Systolic Pressu 21.7 mmHg PV Peak Velocity 70.0 cm/s RV Acceleration Time 0.1 s RV Ejection Time 0.3 s RV AcT/ET 0.4 FINDINGS Left Ventricle Normal left ventricular size, systolic function and wall thickness, with no regional wall motion abnormalities. Left ventricular ejection fraction is estimated at 55 %. Normal diastolic function. Abnormal septal motion consistent with conduction abnormality. Right Ventricle Normal right ventricular size and systolic function. Right ventricular systolic pressure 21.7 mmHg. Right Atrium Normal right atrial size. Left Atrium Normal left atrial size. Mitral Valve Mild mitral annular calcification. No mitral valve stenosis. No significant mitral valve regurgitation. Aortic Valve Aortic valve not well visualized. No aortic valve stenosis. No aortic valve regurgitation. Tricuspid Valve Structurally normal tricuspid valve. Trace to mild tricuspid valve regurgitation. Pulmonic Valve Pulmonic valve not well visualized. Pericardium No pericardial effusion. Aorta Normal-sized aortic root. Normal-sized inferior vena cava with normal respiratory variation. CONCLUSIONS 1. Normal left ventricular size, systolic function and wall thickness, with no regional wall motion abnormalities. Left ventricular ejection fraction is estimated at 55 %. Normal diastolic function. 2. Normal right ventricular size and systolic function. 3. Pulmonary artery pressure estimated at 22 mmHg. 4. Trace to mild tricuspid valve regurgitation. 5. No prior similar studies to compare. Valery Ornelas MD (Electronically Signed) Final Date: 02 October 2020 13:35 S
[2020-10-02] MEDS: vancomycin 750 MG in sodium chloride 0.9% 250 ML 250 MG IV (17:56)
[2020-10-02] MEDS: pantoprazole 40 mg SDV IVP (19:24)
--- NOTE | 2020-10-02 19:36 | PC.NURSE ---
Shift Note Frequent safety and comfort rounds continue. Orders and/or nursing care completed as indicated. Patient monitored for response to intervention and treatment(s). Education provided includes new medications and antibiotic therapy. Patient and/or specialty sales representative Daughter verbalized understanding however needs reinforcement. Will continue to monitor.
[2020-10-02 20:15] LABS: Sodium 153 mmol/L (136-145)
[2020-10-03] VITALS (8 sets, daily range): BP systolic 93–116; BP diastolic 53–64; PULSE 63–77; RESP 11–19; TEMP 36.5–36.7; O2SAT 97–99
[2020-10-03 01:59] LABS: Partial Thromboplastin Time 63.4 SECONDS (23.9-36.7)
[2020-10-03] MEDS: dextrose 5% 1,000 ML 75 ML IV (02:15)
[2020-10-03 04:07] LABS: Basophils % 0.3 %; Hematocrit 26.1 % (37.0-47.0); Hemoglobin 9.1 g/dL (11.5-15.3); Lymphocytes # 1.2 10^3/uL (0.8-4.8); Lymphocytes % 11.2 %; Mean Corpuscular HGB Conc 34.9 g/dL (30.0-36.0); Mean Corpuscular Hemoglobin 34.7 pg (28.0-34.0); Mean Corpuscular Volume 99.6 fl (81-99); Mean Platelet Volume 11.9 fL (7.4-10.4); Monocytes # 0.7 10^3/uL (0.2-0.9); Neutrophils # 8.29 10^3/uL (1.8-7.7); Neutrophils % 80.2 %; Nucleated Red Blood Cells # 0.1 /100WBC; Nucleated Red Blood Cells % 1.1 %; Platelet Count 118 10^3/cmm (130-400); Red Blood Count 2.62 10^6/uL (4.1-5.3); Red Cell Distribution Width 19.1 % (12.1-15.1); White Blood Count 10.3 10^3/uL (4.0-10.0)
[2020-10-03 04:27] LABS: Lactate (Lactic Acid level) 1.6 mmol/L (0.5-2.2)
[2020-10-03 04:30] LABS: Albumin Level 2.4 g/dL (3.5-5.2); Alkaline Phosphatase 50 IU/L (35-105); Blood Urea Nitrogen 31 mg/dL (8-23); Calcium 8.4 mg/dL (8.5-10.5); Carbon Dioxide 22 mmol/L (22-29); Chloride 118 mmol/L (98-107); Globulin 1.9 g/dL (1.3-4.6); Glucose 129 mg/dL (65-115); Magnesium 1.4 mg/dL (1.7-2.3); Osmolality Calculated 320 mOsm/kg (285-295); Sodium 151 mmol/L (136-145); Total Bilirubin 0.4 mg/dL (0.15-1.2); Total Protein 4.3 g/dL (6.6-8.7)
[2020-10-03 04:40] LABS: NT Pro B Type Natriuretic Pept 5008 pg/mL (0-125); Procalcitonin 0.21 ng/mL (0-0.5)
[2020-10-03 04:42] LABS: Alanine Aminotransferase 12 U/L (0-33); Anion Gap 14.2 (5-19); Aspartate Amino Transferase 23 U/L (0-32); Potassium 3.2 mmol/L (3.5-5.1)
[2020-10-03 04:51] LABS: Sodium 148 mmol/L (136-145)
[2020-10-03 04:53] LABS: Creatine Phosphokinase 167 U/L (26-192)
--- NOTE | 2020-10-03 06:41 | PC.NURSE ---
Shift Note Frequent safety and comfort rounds continue. Orders and/or nursing care completed as indicated. Patient monitored for response to intervention and treatment(s). Education provided includes plan of care. 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 Will continue to monitor.
--- NOTE | 2020-10-03 07:15 | PC.NURSE ---
AM shift change. Patient is resting in bed. Patient does not respond to every question. Patient did state clearly I want a drink of water . Patient did not respond to question about pain or position.
[2020-10-03 09:07] LABS: Partial Thromboplastin Time 59.2 SECONDS (23.9-36.7)
[2020-10-03 09:22] LABS: Sodium 149 mmol/L (136-145)
[2020-10-03] MEDS: sodium chloride 0.9% 1,000 ML 75 ML IV (10:44)
[2020-10-03] MEDS: magnesium sulfate premix 2 GM/50 ML PIGGYBACK IV (10:44)
[2020-10-03] MEDS: enoxaparin 60 mg/0.6 mL Syringe SUBCUT (10:52)
[2020-10-03] MEDS: vancomycin 750 MG in sodium chloride 0.9% 250 ML 250 MG IV (12:20)
--- NOTE | 2020-10-03 13:29 | P.PN_ITS ---
Subjective Subjective: Interval history: Patient's appears somewhat more alert today and answering questions intermittently. +6.1 L. Medications: Reviewed: Yes Medication Review Details: Current Medications Acetaminophen (Acetaminophen 325 Mg Tablet) 650 mg PO Q6H PRN PRN Reason: Mild/Mod Pain Or Temp >/= 101 Aspirin (Aspirin 81 Mg Ec Tablet) 81 mg PO DAILY [facility] Last Admin: 10/03/20 09:55 Dose: Not Given Documented by: Atorvastatin Calcium (Atorvastatin 40 Mg Tablet) 40 mg PO BEDTIME JAYJAY Last Admin: 10/02/20 20:05 Dose: Not Given Documented by: Enoxaparin Sodium (Enoxaparin 60 Mg/0.6 Ml Syringe) 60 mg SUBCUT Q12H JAYJAY Last Admin: 10/03/20 10:52 Dose: 60 mg Documented by: Imipenem/Cilastatin Sodium 250 (mg/ Sodium Chloride) 100 mls @ 200 mls/hr IV Q6H [facility]; Protocol Last Infusion: 10/03/20 06:09 Dose: Infused Documented by: Dextrose (D5w) 1,000 mls @ 75 mls/hr IV .[id number] [facility] Stop: 10/03/20 14:09 Last Infusion: 10/03/20 11:30 Dose: Infused Documented by: Vancomycin HCl 750 mg/ Sodium (Chloride) 250 mls @ 250 mls/hr IV Q18H [facility]; Protocol Last Admin: 10/03/20 12:20 Dose: 250 mls/hr Documented by: Potassium Phosphate 40 meq/ (Sodium Chloride) 109.0909 mls @ 27.25 mls/hr IV ONCE ONE Stop: 10/03/20 13:50 Last Admin: 10/03/20 11:05 Dose: 27.25 mls/hr Documented by: Sodium Chloride (Sodium Chloride 0.9%) 1,000 mls @ 75 mls/hr IV .[id number] [facility] Last Infusion: 10/03/20 12:34 Dose: 10 mls/hr Documented by: Levothyroxine Sodium (Levothyroxine 100 Mcg Sdv) 37.5 mcg IVP DAILY [facility] Last Admin: 10/03/20 09:55 Dose: Not Given Documented by: Lidocaine (Lidocaine 5% Patch) 1 patch TOPICAL Q24H JAYJAY Last Admin: 10/03/20 09:55 Dose: Not Given Documented by: Morphine Sulfate (Morphine 4 Mg/Ml Sdv 1 Ml) 1 mg IVP Q4H PRN PRN Reason: SEVERE PAIN Naloxone HCl (Naloxone 0.4 Mg/Ml Sdv) 0.1 mg IVP Q2M PRN PRN Reason: RESPIRATORY RATE < 8/MIN Ondansetron HCl (Ondansetron 2 Mg/Ml Sdv 2 Ml) 4 mg IVP Q8H PRN PRN Reason: vomiting, or N/V if npo Pantoprazole Sodium (Pantoprazole 40 Mg Sdv) 40 mg IVP Q12H JAYJAY Vitals/I&O/Wt Last Vital Signs Temp 97.9 F 10/03/20 12:00 Pulse 77 10/03/20 12:00 Resp 17 10/03/20 12:00 BP 98/55 10/03/20 12:00 Pulse Ox 97 10/03/20 12:00 10/02/20 10/03/20 10/03/20 22:59 06:59 14:59 Intake Total 350 / 6050.085 4877 / 2322.467 1101.383 / 1101.383 Output Total 400 / 650 Balance 350 / 872.467 800 / 5042.196 6126.383 / 1101.383 Weight last 48 hrs Weight 128 lb 9 oz Weight 175 lb Physical Exam Narrative: EXAM NARRATIVE: GENERAL: Averagely built and averagely nourished in no acute distress HEENT: No pallor or icterus. NECK: No JVD. CARDIOVASCULAR SYSTEM: S1-S2 regular. No murmur rubs or gallops. RESPIRATORY SYSTEM: Chest clear to auscultation. No wheezes rhonchi or rubs heard. ABDOMEN: Soft, nontender and nondistended. Normal bowel sounds present. EXTREMITIES: 1+ edema. tenderness in leg, STOCK REPLENISHER: Patient is alert and not really answering any questions Urinary Catheter Management^: Brito: Cath Placed During This Visit: yes Reason for Continuing Indwelling Catheter: Accurate Measurement of Urinary Output in Critically Ill Patients Urinary Catheter Date of Insertion: 10/01/20 Urinary Catheter Time of Insertion: 14:27 Data : 10/03/20 16:08 10/03/20 16:08 Micro: Microbiology 10/01/20 14:27 Urine Culture - Final Urine Catheterized 10/01/20 14:30 Blood Culture - Preliminary Blood NEGATIVE TO DATE 10/01/20 14:25 Blood Culture - Preliminary Blood NEGATIVE TO DATE Other data: Chest CTA 01 October 2020 FINDINGS: Pulmonary arteries: Nonocclusive thrombus noted within a distal left upper lobar branch extending into the segmental branches. There is also nearly occlusive thrombus extending along posterior basilar segmental and subsegmental branches. Aorta: Unremarkable. No aortic aneurysm. No aortic dissection. Lungs: Unremarkable. No consolidation. No masses. Pleural spaces: Unremarkable. No pneumothorax. No pleural effusion. Heart: RV/LV ratio is greater than 1 suggestive of right heart strain. No cardiomegaly. No pericardial effusion. Lymph nodes: Unremarkable. No enlarged lymph nodes. Stomach and bowel: Moderate hiatal hernia containing portion of the stomach. Mild fluid-filled distention of the esophagus. Bones/joints: No acute fracture. Soft tissues: Unremarkable. IMPRESSION: Multifocal pulmonary emboli within both lungs as described in the body of the report. Imaging appearance suggestive of right heart strain. Head and neck CTA 01 October 2020: IMPRESSION: 1. Mild stenosis at the proximal left internal carotid less than 50% narrowing by NASCET criteria. 2. No significant stenosis or occlusion. Transthoracic echocardiogram 02 October 2020 CONCLUSIONS 1. Normal left ventricular size, systolic function and wall thickness, with no regional wall motion abnormalities. Left ventricular ejection fraction is estimated at 55 %. Normal diastolic function. 2. Normal right ventricular size and systolic function. 3. Pulmonary artery pressure estimated at 22 mmHg. 4. Trace to mild tricuspid valve regurgitation. 5. No prior similar studies to compare. A&P Assessment and plan (1) Acute encephalopathy: Probably a combination of UTI and hypernatremia with dehydration -Improving Status: Acute (2) Bilateral pulmonary embolism: On Lovenox Status: Acute (3) NSTEMI (non-ST elevated myocardial infarction): Type 2 NSTEMI in setting of PE. ST-T wave changes noted on EKG. May benefit from stress test later. -Continue aspirin and statin Status: Acute Additional A&P Information Hypernatremia : Improving Dehydration Hypokalemia Hypomagnesemia Hypothyroidism UTI VEDA: Creatinine normalized Macrocytic anemia Thrombocytopenia Thank you for allowing me to participate in patient's care. Please feel free to call with question or concerns. Attestations Medical Necessity Statement*: As per primary team Time Spent in Patient Care: 16 - 35 minutes (>than 50% of time spent in counselling and/or direct pt care on unit) . Coding Level of Care Code Acute Medical Orderly for Chg Fwd Diagnoses Acute encephalopathy G93.40 Bilateral pulmonary embolism I26.99 NSTEMI (non-ST elevated myocardial infarction) I21.4
[2020-10-03] MEDS: pantoprazole 40 mg SDV IVP ×2 (14:05→22:46)
--- NOTE | 2020-10-03 16:24 | PM.PN ---
Subjective Subjective: Interval history: Patient was seen this morning, she is more alert, but is quite drowsy, she knows her name, she knows that she is in hospital, but does not know the date, she does follow commands such as squeezing my fingers, wiggling her toes she is able to smile for me, but she does doze off, and her responses are a bit delayed, Vitals/I&O/Wt Last Vital Signs Temp 97.9 F 10/03/20 12:00 Pulse 76 10/03/20 14:00 Resp 17 10/03/20 12:00 BP 98/55 10/03/20 12:00 Pulse Ox 97 10/03/20 12:00 10/03/20 10/03/20 10/03/20 06:59 14:59 22:59 Intake Total 1200 / 2322.467 1451.383 / 1451.605 746.5417 / 1560.4739 Output Total 400 / 650 Balance 800 / 4935.725 2834.383 / 1451.898 349.9773 / 1560.4739 Weight last 48 hrs Weight 58.315 kg Physical Exam Const: COMMON NORMALS: no acute distress and alert ORIENTATION/CONSCIOUSNESS: Yes awake, Yes oriented to person and Yes confused; not oriented to place and not oriented to time Chest: COMMONS NORMALS: normal inspection of the chest Resp: COMMON NORMALS: normal respiratory effort, No retractions, No use of accessory muscles and clear to auscultation bilaterally AUSCULTATION: clear to auscultation bilaterally Cardio: COMMON NORMALS: regular rate, regular rhythm, S1 normal heart sound present and S2 normal heart sound present RATE: regular rate RHYTHM: regular rhythm HEART SOUNDS: S1 normal heart sound present and S2 normal heart sound present GI: COMMON NORMALS: Normal to inspection, nondistended, normoactive bowel sounds present, Soft to palpation and non-tender PALPATION: Yes Soft to palpation Extremity: NARRATIVE EXTREMITY EXAM: 1+ pitting edema Neuro: SENSORIUM/ORIENTATION: Yes alert, Yes oriented to person, No oriented to place and No oriented to time OTHER: She does move her upper and lower extremities, she does squeeze my fingers, she can wiggle her toes, she is able to smile for me, but is quite drowsy Urinary Catheter Management^: Brito: Cath Placed During This Visit: yes Reason for Continuing Indwelling Catheter: Accurate Measurement of Urinary Output in Critically Ill Patients Urinary Catheter Date of Insertion: 10/01/20 Urinary Catheter Time of Insertion: 14:27 Data : 10/03/20 03:59 10/03/20 08:45 Micro: Microbiology 10/01/20 14:27 Urine Culture - Final Urine Catheterized 10/01/20 14:30 Blood Culture - Preliminary Blood NEGATIVE TO DATE 10/01/20 14:25 Blood Culture - Preliminary Blood NEGATIVE TO DATE A&P Assessment and plan (1) Acute encephalopathy: -Her mentation has improved, she is alert, to person, she can follow some basic commands -But is she was a fully functioning individual before this, had no significant cognitive deficits according to daughter -ct angio chest: Multifocal pulmonary emboli within both lungs as described in the body of the report. Imaging appearance suggestive of right heart strain. -Bilateral lower extremity venous ultrasound negative for DVT -CTA head:No large vessel stenosis or occlusion. Mild stenosis at the proximal left internal carotid less than 50% narrowing by NASCET criteria. No significant stenosis or occlusion. -CT head: 1. No acute intracranial abnormality. 2. Moderate diffuse cerebral atrophy and mild sequela of chronic small vessel ischemic disease. -Bilateral lower extremity ultrasound negative for DVT -CT scan of abdomen pelvis negative for obstructive uropathy -Echocardiogram shows EF of 55%, normal diastolic dysfunction, pulmonary pressure 22 mmHg -EKG with st depression II, III, V3-V6, AVF, ST elevation V1, V2 -WBC 10.3, tachycardia resolved, normotensive, on room air, afebrile, sepsis has resolved -UA with evidence of UTI -NSTEMI, baseline troponin 76, EKG changes as above -Hypovolemic hypernatremia secondary dehydration serum sodium 148 -VEDA, creatinine 0.9 secondary to dehydration -Rhabdomyolysis, CPK 535 -Lactic acidosis, 2.0 -TSH within normal meds -Pro-Ha 0.30, CRP 13.8 -Now hemoglobin down to 9.1, no hemodynamic compromise -Platelet count 118 -Does have signs of fluid overload -Blood pressures are soft this morning Plan: -Blood pressures are soft this morning -hemoglobin down to 9.1, INR 1.5, concerning for a slow GI bleed heparin drip has been stopped, switched over to Lovenox which has been held, ferritin, iron, Hemoccult stools -Monitor hemoglobin monitor blood pressures -Continue broad-spectrum antibiotic therapy vancomycin, Primaxin -Follow blood cultures, urine cultures, sputum cultures, Covid PCR, urine bacterial antigens -Lovenox on hold -Telemetry monitoring -Serum sodium remains 148, BNP over 5000, does have evidence of fluid overload, cut down D5 water to 30 cc -Oxygen therapy, -Replace phosphorus, magnesium, potassium -Urine toxicology positive for opiates, Narcan as needed -Monitor neurologic status, aspiration precautions, seizure precautions, neurochecks -Aspirin, statin, telemetry monitoring -MRI of the brain ordered -If patient's mentation does not improve, with improved sodium levels, broad-spectrum antibiotic therapy, and MRI brain is unremarkable, will consider pursuing lumbar puncture -Protonix for GI prophylaxis -DVT Proflex SCDs, Lovenox on hold given concerns for GI bleed -Full code -Currently n.p.o., evaluated by speech therapy, high risk of aspiration -Cardiology on consult Plan for today hold Lovenox, continue antibiotics, trend hemoglobins, decrease D5 water down to 30 cc, monitor mentation, MRI of the brain ordered PT OT, speech therapy eval Status: Acute (2) Bilateral pulmonary embolism: Status: Acute (3) Hypoxia: Status: Acute (4) Hypernatremia: Status: Acute (5) Hypokalemia: Status: Acute (6) VEDA (acute kidney injury): Status: Acute (7) Lactic acidosis: Status: Acute (8) Rhabdomyolysis: Status: Acute (9) NSTEMI (non-ST elevated myocardial infarction): Status: Acute (10) Sepsis: Status: Acute (11) Anemia: Hemoglobin down to 9.1, possibly secondary to GI bleed, Lovenox on hold, monitor hemoglobin Status: Acute Attestations Medical Necessity Statement*: Patient requires hospital for acute encephalopathy, bilateral pulmonary emboli, now with anemia, persistent confusion, hypernatremia, fluid overload Coding Level of Care Code Acute Investment Underwriter for [facility] Diagnoses Acute encephalopathy G93.40 Bilateral pulmonary embolism I26.99 Hypoxia R09.02 Hypernatremia E87.0 Hypokalemia E87.6 VEDA (acute kidney injury) N17.9 Lactic acidosis E87.2 Rhabdomyolysis M62.82 NSTEMI (non-ST elevated myocardial infarction) I21.4 Sepsis A41.9 Anemia D64.9
[2020-10-03 17:09] LABS: Partial Thromboplastin Time 38.1 SECONDS (23.9-36.7)
[2020-10-03 17:29] LABS: Basophils % 0.1 %; Hematocrit 30.1 % (37.0-47.0); Hemoglobin 10.6 g/dL (11.5-15.3); Lymphocytes # 1.1 10^3/uL (0.8-4.8); Mean Corpuscular HGB Conc 35.2 g/dL (30.0-36.0); Mean Corpuscular Hemoglobin 34.4 pg (28.0-34.0); Mean Corpuscular Volume 97.7 fl (81-99); Mean Platelet Volume 11.8 fL (7.4-10.4); Monocytes # 0.5 10^3/uL (0.2-0.9); Monocytes % 5.7 %; Neutrophils % 78.7 %; Nucleated Red Blood Cells # 0.2 /100WBC; Nucleated Red Blood Cells % 1.8 %; Platelet Count 94 10^3/cmm (130-400); Red Blood Count 3.08 10^6/uL (4.1-5.3); Red Cell Distribution Width 18.8 % (12.1-15.1); White Blood Count 8.3 10^3/uL (4.0-10.0)
[2020-10-03 17:30] LABS: Iron 141 ug/dL (37-145); Sodium 146 mmol/L (136-145); Sodium 147 mmol/L (136-145)
[2020-10-03] MEDS: midodrine 5 mg TABLET 10 MG PO ×2 (17:50→21:39)
[2020-10-03] MEDS: dextrose 5% 1,000 ML 30 ML IV (17:54)
[2020-10-03 18:01] LABS: Ferritin 1613 ng/mL (15-150)
[2020-10-03 19:22] LABS: Fibrinogen 231 mg/dL (174-498); INR 1.34 (0.8-1.2); Partial Thromboplastin Time 38.1 SECONDS (23.9-36.7)
[2020-10-03 19:33] LABS: D Dimer 1.75 ug/mIFEU (0-0.59)
[2020-10-03] MEDS: atorvastatin 40 mg Tablet PO (21:39)
[2020-10-03 21:53] LABS: LAB Peripheral Smear Sent for Review
[2020-10-03] MEDS: enoxaparin 100 mg/mL Syringe 60 MG SUBCUT (22:46)
[2020-10-04] VITALS (11 sets, daily range): BP systolic 103–123; BP diastolic 56–77; PULSE 62–91; RESP 11–20; TEMP 36.3–36.7; O2SAT 95–98
[2020-10-04 04:57] LABS: Basophils % 0.4 %; Eosinophils % 0.1 %; Hematocrit 27.9 % (37.0-47.0); Hemoglobin 9.5 g/dL (11.5-15.3); Lymphocytes # 1.3 10^3/uL (0.8-4.8); Lymphocytes % 15.4 %; Mean Corpuscular HGB Conc 34.1 g/dL (30.0-36.0); Mean Corpuscular Hemoglobin 34.7 pg (28.0-34.0); Mean Corpuscular Volume 101.8 fl (81-99); Mean Platelet Volume 12.4 fL (7.4-10.4); Monocytes # 0.6 10^3/uL (0.2-0.9); Monocytes % 7.3 %; Neutrophils # 6.02 10^3/uL (1.8-7.7); Neutrophils % 72.9 %; Nucleated Red Blood Cells # 0.2 /100WBC; Nucleated Red Blood Cells % 1.9 %; Platelet Count 144 10^3/cmm (130-400); Red Blood Count 2.74 10^6/uL (4.1-5.3); Red Cell Distribution Width 19.4 % (12.1-15.1); White Blood Count 8.3 10^3/uL (4.0-10.0)
[2020-10-04 05:21] LABS: Lactate (Lactic Acid level) 1.5 mmol/L (0.5-2.2)
--- NOTE | 2020-10-04 06:51 | PC.NURSE ---
0500 vancomycin not yet given due to lab unable to obtain vanc trough, blood drawn from lab hemolyzed, awaiting vials from lab to redraw
--- NOTE | 2020-10-04 07:16 | PC.NURSE ---
Shift Note Frequent safety and comfort rounds continue. Orders and/or nursing care completed as indicated. Patient monitored for response to intervention and treatment(s). Education provided includes plan of care. Patient and/or manufacturer's representative needs reinforcement due to confusion. Will continue to monitor.
[2020-10-04 07:39] LABS: INR 1.21 (0.8-1.2)
[2020-10-04 07:57] LABS: Vancomycin Trough 18.5 ug/mL (10-15)
[2020-10-04 08:08] LABS: NT Pro B Type Natriuretic Pept 2675 pg/mL (0-125); Procalcitonin 0.22 ng/mL (0-0.5)
[2020-10-04 08:19] LABS: Alanine Aminotransferase 12 U/L (0-33); Albumin Level 2.4 g/dL (3.5-5.2); Alkaline Phosphatase 62 IU/L (35-105); Blood Urea Nitrogen 27 mg/dL (8-23); C Reactive Protein 8.9 mg/L (0.0-4.9); Calcium 8.1 mg/dL (8.5-10.5); Carbon Dioxide 23 mmol/L (22-29); Chloride 113 mmol/L (98-107); Creatine Phosphokinase 100 U/L (26-192); Globulin 1.7 g/dL (1.3-4.6); Glucose 98 mg/dL (65-115); Osmolality Calculated 305 mOsm/kg (285-295); Phosphorus 2.4 mg/dL (2.5-4.5); Sodium 145 mmol/L (136-145); Total Bilirubin 0.4 mg/dL (0.15-1.2); Total Protein 4.1 g/dL (6.6-8.7)
--- NOTE | 2020-10-04 08:26 | PC.NURSE ---
Vancomycin trough result received at 0815. 0500 dose of vanc was not given pending the trough results. Pharmacy and physician notified of late dosing of vancomycin.
[2020-10-04 08:27] LABS: Anion Gap 12.5 (5-19); Aspartate Amino Transferase 19 U/L (0-32); Potassium 3.5 mmol/L (3.5-5.1)
[2020-10-04] MEDS: vancomycin 750 MG in sodium chloride 0.9% 250 ML 250 MG IV ×2 (08:30→21:55)
--- NOTE | 2020-10-04 08:33 | PC.NURSE ---
Speech therapist saw patient earlier this morning and reports patient has continuing difficulty with swallowing, specifically delayed swallowing. Therapist recommends continued NPO to prevent aspiation.
--- NOTE | 2020-10-04 10:05 | PC.SOCIAL ---
Pg 2 IMM Explained to pt Pg 2 IMM. No questions voiced. Provided pt a copy. Initialed, dated, & timed a copy & placed in chart.
--- NOTE | 2020-10-04 10:15 | MR_ITS ---
WS: [id number] MRI HEAD WITHOUT CONTRAST TECHNIQUE: Sagittal T1, T2 axial, T2 axial FLAIR, axial and coronal T1 images, axial susceptibility w eighted imaging, axial diffusion weighted images, and coronal T2 images were obtained. CLINICAL INFORMATION: ams COMPARISON: CT October 01 2020 FINDINGS: Patchy restricted diffusion involving the right frontal lobe and left cerebellum. Area of restricted diffusion in the left cerebellum measuring approximately 1.6 x 0.8 cm. Findings compatible with acute ischemia in these locations. Minimal edema in the right frontal lobe. More focal edema in the left c erebellum. No significant mass effect or midline shift. Normal vascular flow voids at the skull base. Somewhat diminutive basilar artery flow-void with presumed dominant anterior circulation. No extra-a xial fluid collections. Normal optic chiasm and pituitary infundibulum. Moderate to advanced symmetric atrophy temporal lobes and hippocampal formations. Normal cavernous sinuses and Meckel's cave. Mild mucosal thickening in t he ethmoid air cells and mastoid air cells. No hemosiderin on susceptibly weighted images. MR/MR head wo con* [id number] IMPRESSION: 1. Small amount of patchy restricted diffusion in the right frontal lobe consi stent with acute ischemia. 2. 1.6x0.8 cm area of acute ischemia in the left cerebellum. Associated mild edema. 3. No significant mass effect or midline shift. 4. Mild small vessel changes. Moderate parenchymal volume loss. 5. Advanced symmetric atrophy temporal lobes and hippocampal formations. 6. Patent flow voids at the skull base. Somewhat diminutive basilar artery lik chang due to dominant anterior circulation. Intracranial vessels can be further e valuated with CTA. 7. No hemosiderin on susceptibly weighted images. Notified Carlos Manuel Sharp MD at 10/04/2020 4:33 PM.
--- NOTE | 2020-10-04 10:57 | PM.PN ---
Subjective Subjective: Interval history: Patient was seen this morning, immediately upon entering the room, she smiles at me, she is able to tell me good morning, again her responses are a bit delayed, she tells me that nothing is bothering her, she feels okay, at the time she does not answer my questions, she tracks me around the room, she is able to squeeze my fingers, she is able to smile, she does have bilateral lower extremity weakness, when I asked her to wiggle her toes, she is barely able to move them, she cannot lift her legs, she knows her name, she does not know her birthday, she does not know where she is, she does not know the date, Vitals/I&O/Wt Last Vital Signs Temp 97.3 F L 10/04/20 08:10 Pulse 71 10/04/20 08:10 Resp 18 10/04/20 08:10 BP 116/77 10/04/20 08:10 Pulse Ox 98 10/04/20 08:10 10/03/20 10/04/20 10/04/20 22:59 06:59 14:59 Intake Total 1071.5909 / 2522.9739 200 / 2722.9739 Output Total 350 / 350 Balance 1071.5909 / 2522.9739 -150 / 2372.9739 Physical Exam Const: COMMON NORMALS: no acute distress and alert ORIENTATION/CONSCIOUSNESS: Yes awake, Yes oriented to person and Yes confused; not oriented to place and not oriented to time Resp: COMMON NORMALS: normal respiratory effort, No retractions, No use of accessory muscles and clear to auscultation bilaterally AUSCULTATION: clear to auscultation bilaterally Cardio: COMMON NORMALS: regular rate, regular rhythm, S1 normal heart sound present, S2 normal heart sound present and No murmurs present (Cardio) RATE: regular rate RHYTHM: regular rhythm HEART SOUNDS: S1 normal heart sound present and S2 normal heart sound present GI: COMMON NORMALS: Normal to inspection, nondistended, normoactive bowel sounds present, Soft to palpation and non-tender PALPATION: Yes Soft to palpation Neuro: SENSORIUM/ORIENTATION: Yes alert, Yes oriented to person, No oriented to place and No oriented to time OTHER: -Able to smile for me, no facial droop that I can discern, is able to track me around the room, pupils equal round reactive to light, she is able to smile for me, she does have equal strength in bilateral upper extremities, but 2 out of 5, bilateral upper extremities, bilateral lower extremities, she can wiggle her toes just slightly, strength is 0 out of 5, Skin: NARRATIVE SKIN EXAM: Bilateral extremity edema, 1+, some generalized anasarca Urinary Catheter Management^: Brito: Cath Placed During This Visit: yes Reason for Continuing Indwelling Catheter: Accurate Measurement of Urinary Output in Critically Ill Patients Urinary Catheter Date of Insertion: 10/01/20 Urinary Catheter Time of Insertion: 14: Data : 10/04/20 04:32 10/04/20 07:05 Micro: Microbiology 10/01/20 14:27 Urine Culture - Final Urine Catheterized A&P Assessment and plan (1) Acute encephalopathy: -Her mentation has improved, she is alert, to person, she can follow some basic commands -However her responses are delayed, she is quite drowsy, and she does now exhibit bilateral lower extremity weakness, no slurring of speech, no facial droop, no focal symptoms -But is she was a fully functioning individual before this, had no significant cognitive deficits according to daughter -ct angio chest: Multifocal pulmonary emboli within both lungs as described in the body of the report. Imaging appearance suggestive of right heart strain. -Bilateral lower extremity venous ultrasound negative for DVT -CTA head:No large vessel stenosis or occlusion. Mild stenosis at the proximal left internal carotid less than 50% narrowing by NASCET criteria. No significant stenosis or occlusion. -CT head: 1. No acute intracranial abnormality. 2. Moderate diffuse cerebral atrophy and mild sequela of chronic small vessel ischemic disease. -Bilateral lower extremity ultrasound negative for DVT -CT scan of abdomen pelvis negative for obstructive uropathy -Echocardiogram shows EF of 55%, normal diastolic dysfunction, pulmonary pressure 22 mmHg -EKG with st depression II, III, V3-V6, AVF, ST elevation V1, V2 -WBC 10.3, tachycardia resolved, normotensive, on room air, afebrile, sepsis has resolved -UA with evidence of UTI -NSTEMI, baseline troponin 76, EKG changes as above -Hypovolemic hypernatremia secondary dehydration serum sodium 145, resolved -VEDA, resolved, creatinine 0.9 secondary to dehydration -Rhabdomyolysis, CPK 535 -Lactic acidosis, 2.0, resolved -TSH within normal meds -Pro-Ha 0.30, CRP 13.8 -Now hemoglobin down to 9.5, no hemodynamic compromise -Platelet count 144 -Does have signs of fluid overload, +7 L Plan: -hemoglobin down to 9.5, INR 1.2, concerning for a slow GI bleed hemoglobin has been stable stable on Lovenox, iron and ferritin are high, continue Lovenox for now, will consider switching over to Eliquis -Thrombocytopenia, platelet count did drop to 94,000 on heparin, she was switched to Lovenox, now platelet count is up to 144, HIT panel sent, certainly its possible that HIT is contributing to her thrombocytopenia, or dilutional, will continue to monitor, decide if we need to switch over to Eliquis -Monitor hemoglobin monitor blood pressures -Continue broad-spectrum antibiotic therapy vancomycin, Primaxin -Follow blood cultures, urine cultures, sputum cultures, Covid PCR, urine bacterial antigens also for negative -Telemetry monitoring -Serum sodium remains 145, continue D5 water at 30 cc an hour -Does have evidence of fluid overload, anasarca, will give 40 mg of IV Lasix -Oxygen therapy, -Replace phosphorus, magnesium, potassium -Urine toxicology positive for opiates, Narcan as needed -Monitor neurologic status, aspiration precautions, seizure precautions, neurochecks -Aspirin, statin, telemetry monitoring -MRI of the brain ordered for today, as patient's mentation is a bit delayed, she has generalized weakness bilateral lower extremities, need to evaluate for the possibility of stroke -If patient's mentation does not improve, with improved sodium levels, broad-spectrum antibiotic therapy, and MRI brain is unremarkable, will consider pursuing lumbar puncture -Protonix for GI prophylaxis -DVT Proflex SCDs, continue Lovenox -Full code -Currently n.p.o., evaluated by speech therapy, high risk of aspiration -Cardiology on consult Plan for today continue Lovenox, monitor CBC, monitor for HIT, MRI of brain ordered, neurochecks Status: Acute (2) Bilateral pulmonary embolism: Status: Acute (3) Hypoxia: Status: Acute (4) Hypernatremia: Status: Acute (5) Hypokalemia: Status: Acute (6) VEDA (acute kidney injury): Status: Acute (7) Lactic acidosis: Status: Acute (8) Rhabdomyolysis: Status: Acute (9) NSTEMI (non-ST elevated myocardial infarction): Status: Acute (10) Sepsis: Status: Acute (11) Anemia: Hemoglobin down to 9.1, possibly secondary to GI bleed, Lovenox on hold, monitor hemoglobin Status: Acute (12) Thrombocytopenia: Status: Acute Attestations Medical Necessity Statement*: Patient requires hospitalization for persistent acute encephalopathy, bilateral pulmonary embolism Coding Level of Care Code Acute Correctional Supervising Cook for [facility] Diagnoses Acute encephalopathy G93.40 Bilateral pulmonary embolism I26.99 Hypoxia R09.02 Hypernatremia E87.0 Hypokalemia E87.6 VEDA (acute kidney injury) N17.9 Lactic acidosis E87.2 Rhabdomyolysis M62.82 NSTEMI (non-ST elevated myocardial infarction) I21.4 Sepsis A41.9 Anemia D64.9 Thrombocytopenia D69.6
--- NOTE | 2020-10-04 11:50 | PM.PN ---
Subjective Subjective: Interval history: Patient has improved her mentation however is still drowsy. Denies any chest pain. Vitals/I&O/Wt Last Vital Signs Temp 97.3 F L 10/04/20 08:10 Pulse 71 10/04/20 08:10 Resp 18 10/04/20 08:10 BP 116/77 10/04/20 08:10 Pulse Ox 98 10/04/20 08:10 10/03/20 10/04/20 10/04/20 22:59 06:59 14:59 Intake Total 1071.5909 / 2522.9739 200 / 2722.9739 Output Total 350 / 350 Balance 1071.5909 / 2522.9739 -150 / 2372.9739 Physical Exam Narrative: EXAM NARRATIVE: GENERAL: Drowsy HEENT: No pallor or icterus. NECK: No JVD. CARDIOVASCULAR SYSTEM: S1-S2 regular. No murmur rubs or gallops. RESPIRATORY SYSTEM: Chest clear to auscultation. No wheezes rhonchi or rubs heard. ABDOMEN: Soft, nontender and nondistended. Normal bowel sounds present. EXTREMITIES: 1+ edema. 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 WORKER: Patient is alert and not really answering any questions Urinary Catheter Management^: Brito: Cath Placed During This Visit: yes Reason for Continuing Indwelling Catheter: Accurate Measurement of Urinary Output in Critically Ill Patients Urinary Catheter Date of Insertion: 10/01/20 Urinary Catheter Time of Insertion: 14:27 Data : 10/04/20 17:25 10/04/20 07:05 Micro: Microbiology 10/01/20 14:30 Blood Culture - Preliminary Blood 10/01/20 14:27 Urine Culture - Final Urine Catheterized A&P Assessment and plan (1) Acute encephalopathy: Likely secondary to hypernatremia and UTI -Improving Status: Acute (2) Bilateral pulmonary embolism: On Lovenox Status: Acute (3) NSTEMI (non-ST elevated myocardial infarction): Type 2 NSTEMI in setting of PE. Once patient is stabilized otherwise, will benefit from stress test. -Continue aspirin and statin Status: Acute Additional A&P Information Hypernatremia : Improving Dehydration Hypokalemia Hypomagnesemia Hypothyroidism UTI VEDA: Creatinine normalized Macrocytic anemia Thrombocytopenia Thank you for involving us with care of this patient. We will continue to follow. Please call with questions. Attestations Medical Necessity Statement*: Care expected to cross 2 midnights. Coding Level of Care Code Acute Binder Stripper Hand for [facility] Diagnoses Acute encephalopathy G93.40 Bilateral pulmonary embolism I26.99 NSTEMI (non-ST elevated myocardial infarction) I21.4
[2020-10-04] MEDS: pantoprazole 40 mg SDV IVP ×2 (11:52→23:02)
[2020-10-04] MEDS: enoxaparin 60 mg/0.6 mL Syringe SUBCUT ×2 (11:52→23:02)
[2020-10-04] MEDS: FUROsemide 10 mg/mL SDV 4mL 40 MG IVP (11:52)
--- NOTE | 2020-10-04 15:13 | PC.NURSE ---
Patient transferred to MRI via non emergent medical transport.
[2020-10-04 17:45] LABS: Basophils % 0.4 %; Eosinophils % 0.4 %; Hematocrit 31.1 % (37.0-47.0); Hemoglobin 10.5 g/dL (11.5-15.3); Lymphocytes # 1.2 10^3/uL (0.8-4.8); Lymphocytes % 15.9 %; Mean Corpuscular HGB Conc 33.8 g/dL (30.0-36.0); Mean Corpuscular Volume 100.6 fl (81-99); Mean Platelet Volume 11.6 fL (7.4-10.4); Monocytes # 0.4 10^3/uL (0.2-0.9); Monocytes % 5.3 %; Neutrophils # 5.48 10^3/uL (1.8-7.7); Neutrophils % 73.2 %; Nucleated Red Blood Cells # 0.2 /100WBC; Nucleated Red Blood Cells % 2.3 %; Platelet Count 133 10^3/cmm (130-400); Red Blood Count 3.09 10^6/uL (4.1-5.3); Red Cell Distribution Width 18.6 % (12.1-15.1); White Blood Count 7.5 10^3/uL (4.0-10.0)
[2020-10-04 18:23] LABS: Vitamin B12 1111 pg/mL (232-1245)
[2020-10-04 18:36] LABS: Folate Level 6.8 ng/mL (4.8-37.3)
--- NOTE | 2020-10-04 19:06 | PC.NURSE ---
Shift Note Frequent safety and comfort rounds continue. Orders and/or nursing care completed as indicated. Patient monitored for response to intervention and treatment(s). Education provided includes[turning for skin integrity]. Patient and/or [daughter states understanding]. Will continue to monitor.
--- NOTE | 2020-10-04 20:07 | PC.NURSE ---
Per report, speech therapy said that is at risk for aspiration and that it is recommended not to give her pills or food.
[2020-10-04] MEDS: lanolin oint 7 gm 1 APPLIC TOPICAL (22:38)
[2020-10-05] VITALS (9 sets, daily range): BP systolic 110–125; BP diastolic 59–80; PULSE 67–77; RESP 9–16; TEMP 36.4–36.8; O2SAT 96–99
--- NOTE | 2020-10-05 06:03 | PC.NURSE ---
Shift Note Frequent safety and comfort rounds continue. Orders and/or nursing care completed as indicated. Patient monitored for response to intervention and treatment(s). Education provided includes turning schedule and pain management. Patient and/or major account representative verbalized understanding. Will continue to monitor.
[2020-10-05 08:39] LABS: Basophils % 0.4 %; Eosinophils % 0.5 %; Hematocrit 29.4 % (37.0-47.0); Hemoglobin 9.9 g/dL (11.5-15.3); Lymphocytes # 1.4 10^3/uL (0.8-4.8); Lymphocytes % 17.6 %; Mean Corpuscular HGB Conc 33.7 g/dL (30.0-36.0); Mean Corpuscular Hemoglobin 33.7 pg (28.0-34.0); Monocytes # 0.4 10^3/uL (0.2-0.9); Monocytes % 5.6 %; Neutrophils # 5.56 10^3/uL (1.8-7.7); Neutrophils % 72.6 %; Nucleated Red Blood Cells # 0.1 /100WBC; Nucleated Red Blood Cells % 1.7 %; Platelet Count 126 10^3/cmm (130-400); Red Blood Count 2.94 10^6/uL (4.1-5.3); Red Cell Distribution Width 18.6 % (12.1-15.1); White Blood Count 7.7 10^3/uL (4.0-10.0)
[2020-10-05 08:58] LABS: INR 1.12 (0.8-1.2)
[2020-10-05 09:06] LABS: Lactate (Lactic Acid level) 1.5 mmol/L (0.5-2.2)
[2020-10-05 09:10] LABS: Alanine Aminotransferase 13 U/L (0-33); Albumin Level 2.6 g/dL (3.5-5.2); Alkaline Phosphatase 74 IU/L (35-105); Anion Gap 11.4 (5-19); Aspartate Amino Transferase 19 U/L (0-32); Blood Urea Nitrogen 23 mg/dL (8-23); Calcium 8.3 mg/dL (8.5-10.5); Carbon Dioxide 31 mmol/L (22-29); Chloride 110 mmol/L (98-107); Globulin 1.9 g/dL (1.3-4.6); Glucose 98 mg/dL (65-115); Magnesium 1.7 mg/dL (1.7-2.3); Osmolality Calculated 312 mOsm/kg (285-295); Phosphorus 2.4 mg/dL (2.5-4.5); Potassium 3.4 mmol/L (3.5-5.1); Sodium 149 mmol/L (136-145); Total Bilirubin 0.4 mg/dL (0.15-1.2); Total Protein 4.5 g/dL (6.6-8.7)
[2020-10-05 09:14] LABS: NT Pro B Type Natriuretic Pept 2145 pg/mL (0-125); Procalcitonin 0.31 ng/mL (0-0.5)
[2020-10-05 09:25] LABS: Creatine Phosphokinase 68 U/L (26-192)
--- NOTE | 2020-10-05 09:35 | PC.NURSE ---
Pt is awake, alert, oriented to name and birthday only. Moderate weakness when squeeze my hands, able to move her toes and mildy elevate arms. sensation to tactile stimuli is intact.
[2020-10-05] MEDS: enoxaparin 60 mg/0.6 mL Syringe SUBCUT ×2 (10:52→21:59)
[2020-10-05] MEDS: pantoprazole 40 mg SDV IVP ×2 (10:52→21:59)
--- NOTE | 2020-10-05 11:14 | P.PN_ITS ---
Subjective Subjective: Interval history: Patient's MRI showed stroke. Likely the etiology of her altered mental status. She is responding appropriately today to questions. Denies chest pain. Vitals/I&O/Wt Last Vital Signs Temp 98.2 F 10/05/20 08:00 Pulse 67 10/05/20 08:00 Resp 12 10/05/20 08:00 BP 125/68 10/05/20 08:00 Pulse Ox 98 10/05/20 08:00 10/04/20 10/05/20 10/05/20 22:59 06:59 14:59 Intake Total 100 / 450 450 / 900 Output Total 2100 / 2100 1000 / 3100 Balance -2000 / -1650 -550 / -2200 Physical Exam Narrative: EXAM NARRATIVE: GENERAL: Alert today. HEENT: No pallor or icterus. NECK: No JVD. CARDIOVASCULAR SYSTEM: S1-S2 regular. No murmur rubs or gallops. RESPIRATORY SYSTEM: Chest clear to auscultation. No wheezes rhonchi or rubs heard. ABDOMEN: Soft, nontender and nondistended. Normal bowel sounds present. EXTREMITIES: 1+ edema. LAWN CARE PROFESSIONAL: Patient is alert and oriented x1 to person. Reduced strength in all extremities. Urinary Catheter Management^: Brito: Cath Placed During This Visit: yes Reason for Continuing Indwelling Catheter: Accurate Measurement of Urinary Output in Critically Ill Patients Urinary Catheter Date of Insertion: 10/01/20 Urinary Catheter Time of Insertion: 14:27 Data : 10/06/20 09:45 10/06/20 09:45 Micro: Microbiology 10/01/20 14:30 Blood Culture - Preliminary Blood A&P Assessment and plan (1) Acute encephalopathy: Recent Stroke seen on MRI which is likely the etiology of the altered mental status -Improving Status: Acute (2) Bilateral pulmonary embolism: On Lovenox Status: Acute (3) NSTEMI (non-ST elevated myocardial infarction): Type 2 NSTEMI in setting of PE. Also found to have stroke. Once patient is stabilized otherwise, will benefit from stress test. -Continue aspirin and statin Status: Acute Additional A&P Information Hypernatremia : Improving Dehydration Hypokalemia Hypomagnesemia Hypothyroidism UTI VEDA: Creatinine normalized Macrocytic anemia Thrombocytopenia Thank you for involving us with care of this patient. We will continue to follow. Please call with questions. Attestations Medical Necessity Statement*: Care expected to cross 2 midnights. Coding Level of Care Code Acute Claim Clinician for [facility] Diagnoses Acute encephalopathy G93.40 Bilateral pulmonary embolism I26.99 NSTEMI (non-ST elevated myocardial infarction) I21.4
--- NOTE | 2020-10-05 12:05 | P.PN_ITS ---
Subjective Subjective: Interval history: Yesterday patient is MRI of the brain showed 2 areas of stroke, this was likely the etiology behind her unresponsiveness at home headache is what brought her to the hospital I spoke to patient's daughter yesterday, about patient's CVA, currently she will require long term placement, the question is is at will she require PEG tube placement, she was seen by speech, and deemed high risk of aspiration, thus I suspect that she might have had a brainstem stroke, although it does not show radiographically, I advised daughter that I need to speak to her and patient son about goals of care continue medical interventions versus hospice This morning, immediately upon entering the room patient smiles, she says good morning to me, she is able to follow commands she is able to squeeze my fingers, strength is reduced, she is able to wiggle her toes, but strength is reduced, no facial droop, no slurring of her speech, she is alert to person, not to place, not to time, she follows simple commands, she is able to tell me thank you Vitals/I&O/Wt Last Vital Signs Temp 98.2 F 10/05/20 08:00 Pulse 67 10/05/20 08:00 Resp 12 10/05/20 08:00 BP 125/68 10/05/20 08:00 Pulse Ox 98 10/05/20 08:00 10/04/20 10/05/20 10/05/20 22:59 06:59 14:59 Intake Total 100 / 450 450 / 900 Output Total 2100 / 2100 1000 / 3100 Balance -2000 / -1650 -550 / -2200 Physical Exam Const: COMMON NORMALS: no acute distress ORIENTATION/CONSCIOUSNESS: Yes awake and Yes oriented to person; not oriented to place and not oriented to time HENMT: COMMON NORMALS: normocephalic HEAD & SCALP: normocephalic Eye: COMMON NORMALS: Equal, round and reactive pupils present PUPIL: Yes Equal, round and reactive pupils present Resp: COMMON NORMALS: normal respiratory effort, No retractions, No use of accessory muscles and clear to auscultation bilaterally AUSCULTATION: clear to auscultation bilaterally Cardio: COMMON NORMALS: regular rate, regular rhythm, S1 normal heart sound present and S2 normal heart sound present RATE: regular rate RHYTHM: regular rhythm HEART SOUNDS: S1 normal heart sound present and S2 normal heart sound present GI: COMMON NORMALS: Normal to inspection, nondistended, normoactive bowel sounds present, Soft to palpation and non-tender PALPATION: Yes Soft to palpation Extremity: NARRATIVE EXTREMITY EXAM: 1+ pedal edema Neuro: SENSORIUM/ORIENTATION: Yes oriented to person, No oriented to place and No oriented to time OTHER: Alert to person, not to place, not to time, able to follow simple commands She is able to smile She tells me good morning, she tells me thank you She can squeeze my fingers, but strength is 1 out of 5 She can wiggle her toes, but strength is 1 out of 5 Urinary Catheter Management^: Brito: Cath Placed During This Visit: yes Reason for Continuing Indwelling Catheter: Accurate Measurement of Urinary Output in Critically Ill Patients Urinary Catheter Date of Insertion: 10/01/20 Urinary Catheter Time of Insertion: 14:27 Data : 10/05/20 08:23 10/05/20 08:23 Micro: Microbiology 10/01/20 14:30 Blood Culture - Preliminary Blood A&P Assessment and plan (1) CVA (cerebral vascular accident): -Last known well normal was on 09/28/2020, 3 days before she was brought to the hospital -Out of TPA window -According to daughter she was not responding appropriately, was barely arousable -During her ER visit, she did not respond appropriately, did not respond to sternal rub initially, but would wake up here and there say a few words -head ct: 1. No acute intracranial abnormality. 2. Moderate diffuse cerebral atrophy and mild sequela of chronic small vessel ischemic disease. -CTA head and neck: NTERIOR CIRCULATION: Right internal carotid artery: Unremarkable. Intracranial segment is patent with no significant stenosis. No aneurysm. Right middle cerebral artery: Unremarkable. No occlusion or significant stenosis. No aneurysm. Right anterior cerebral artery: Unremarkable. No occlusion or significant stenosis. No aneurysm. Left internal carotid artery: Unremarkable. Intracranial segment is patent with no significant stenosis. No aneurysm. Left middle cerebral artery: Unremarkable. No occlusion or significant stenosis. No aneurysm. Left anterior cerebral artery: Unremarkable. No occlusion or significant stenosis. No aneurysm. POSTERIOR CIRCULATION: Right vertebral artery: Unremarkable. No occlusion or significant stenosis. No aneurysm. Left vertebral artery: Unremarkable. No occlusion or significant stenosis. No aneurysm. Basilar artery: Unremarkable. No occlusion or significant stenosis. No aneurysm. Right posterior cerebral artery: Unremarkable. No occlusion or significant stenosis. No aneurysm. Left posterior cerebral artery: Unremarkable. No occlusion or significant stenosis. No aneurysm. Brain: No definite mass, mass effect, or midline shift. Cerebral ventricles: No ventriculomegaly. Bones/joints: Unremarkable. No acute fracture. Soft tissues: Unremarkable. Right common carotid artery: No stenosis. No dissection or occlusion. Right internal carotid artery: No stenosis of the extracranial segment. No dissection or occlusion. Right external carotid artery: No occlusion or stenosis of the origin. Left common carotid artery: Calcified and noncalcified atherosclerotic plaque at the carotid bulb. No significant stenosis. No dissection or occlusion. Left internal carotid artery: Mild stenosis at the proximal left internal carotid artery. No dissection or occlusion. Left external carotid artery: No occlusion or stenosis of the origin. Right vertebral artery: No stenosis. No dissection or occlusion. Left vertebral artery: No stenosis. No dissection or occlusion. Soft tissues: Normal. No significant soft tissue swelling. Bones/joints: No acute fracture. -MRI brain 1. Small amount of patchy restricted diffusion in the right frontal lobe consistent with acute ischemia. 2. 1.6x0.8 cm area of acute ischemia in the left cerebellum. Associated mild edema. 3. No significant mass effect or midline shift. 4. Mild small vessel changes. Moderate parenchymal volume loss. 5. Advanced symmetric atrophy temporal lobes and hippocampal formations. 6. Patent flow voids at the skull base. Somewhat diminutive basilar artery likely due to dominant anterior circulation. Intracranial vessels can be further evaluated with CTA. 7. No hemosiderin on susceptibly weighted images. -Likely timeframe of CVA was 09/28/2020 when she went from normal to suddenly not normal -Has been on aspirin, statin, heparin since hospital admission -Above findings highly suspicious for embolic events related to A. fib, however EKGs here do not show A. fib, telemetry does not show A. fib -This morning alert, to person, not to place, not to time, follows simple commands, has strength in upper extremities 1 out of 5, strength lower extremities 1 out of 5 -Continues to be high risk of aspiration, poor swallowing, this is 8 days after the presumed acute event of a CVA, thus I highly suspect that she has had a brainstem stroke relating to swallowing dysfunction, although it does not show up radiographically Plan: -Continue telemetry monitoring -Although I do not see any A. fib events, likely will require an event monitor on discharge -Nonetheless continue aspirin, statin -Continue Lovenox, transition to Eliquis on discharge given pulmonary embolism as below -She has already completed permissive hypertension, she is already received IV fluids -Continue PT OT -Continue speech therapy -Follow-up with neurology as outpatient -Discusse with family about hospice versus PEG tube placement and long term placement Status: Acute (2) Acute encephalopathy: -Accommodation of acute CVA, pulmonary embolism, hypernatremia, UTI -ct angio chest: Multifocal pulmonary emboli within both lungs as described in the body of the report. Imaging appearance suggestive of right heart strain. -Bilateral lower extremity venous ultrasound negative for DVT -CTA head:No large vessel stenosis or occlusion. Mild stenosis at the proximal left internal carotid less than 50% narrowing by NASCET criteria. No significant stenosis or occlusion. -CT head: 1. No acute intracranial abnormality. 2. Moderate diffuse cerebral atrophy and mild sequela of chronic small vessel ischemic disease. -Bilateral lower extremity ultrasound negative for DVT -CT scan of abdomen pelvis negative for obstructive uropathy -Echocardiogram shows EF of 55%, normal diastolic dysfunction, pulmonary pressure 22 mmHg -EKG with st depression II, III, V3-V6, AVF, ST elevation V1, V2 -WBC 10.3, tachycardia resolved, normotensive, on room air, afebrile, sepsis has resolved -UA with evidence of UTI -NSTEMI, baseline troponin 76, EKG changes as above -Hypovolemic hypernatremia secondary dehydration serum sodium 145, resolved -VEDA, resolved, creatinine 0.9 secondary to dehydration -Rhabdomyolysis, resolved -Lactic acidosis, 2.0, resolved -TSH within normal meds -Pro-Ha 0.30, CRP 13.8 -Now hemoglobin down to 9.5, no hemodynamic compromise -Platelet count 126 -Does have signs of fluid overload, +5 L Plan: -hemoglobin down to 9.9, INR 1.12, concerning for a slow GI bleed hemoglobin has been stable stable on Lovenox, iron and ferritin are high, continue Lovenox for now, will consider switching over to Eliquis -Thrombocytopenia, platelet count did drop to 94,000 on heparin, she was switched to Lovenox, now platelet count is up to 126, HIT panel sent, unlikely to be WALTER as platelet counts have recovered, will continue to monitor, decide if we need to switch over to Eliquis -Monitor hemoglobin monitor blood pressures -Urine cultures unremarkable, blood cultures unremarkable, stop antibiotic coverage -Follow blood cultures, urine cultures, sputum cultures, Covid PCR, urine bacterial antigens also for negative -Telemetry monitoring -Serum sodium remains 149, hold fluids -Does have evidence of fluid overload, anasarca, status post Lasix, hold diuretics for now -Oxygen therapy, -Replace phosphorus, magnesium, potassium -Monitor neurologic status, aspiration precautions, seizure precautions, neurochecks -Aspirin, statin, telemetry monitoring -Protonix for GI prophylaxis -DVT Proflex SCDs, continue Lovenox -Full code -Currently n.p.o., evaluated by speech therapy, high risk of aspiration -Cardiology on consult Plan for today continue aspirin, statin, Lovenox, discussed with family about future interventions Status: Acute (3) Bilateral pulmonary embolism: Status: Acute (4) Hypoxia: Status: Acute (5) Hypernatremia: Status: Acute (6) Hypokalemia: Status: Acute (7) VEDA (acute kidney injury): Status: Acute (8) Lactic acidosis: Status: Acute (9) Rhabdomyolysis: Status: Acute (10) NSTEMI (non-ST elevated myocardial infarction): Status: Acute (11) Sepsis: Status: Acute (12) Anemia: Hemoglobin down to 9.1, possibly secondary to GI bleed, Lovenox on hold, monitor hemoglobin Status: Acute (13) Thrombocytopenia: Status: Acute Attestations Medical Necessity Statement*: Patient requires hospitalization for acute CVA, bilateral pulmonary emboli, hyponatremia, UTI Coding Level of Care Code Acute Analysis Analyst for [facility] Diagnoses CVA (cerebral vascular accident) I63.9 Acute encephalopathy G93.40 Bilateral pulmonary embolism I26.99 Hypoxia R09.02 Hypernatremia E87.0 Hypokalemia E87.6 VEDA (acute kidney injury) N17.9 Lactic acidosis E87.2 Rhabdomyolysis M62.82 NSTEMI (non-ST elevated myocardial infarction) I21.4 Sepsis A41.9 Anemia D64.9 Thrombocytopenia D69.6
[2020-10-05] MEDS: dextrose 5%-ns + KCl 20 20 MEQ/1,000 ML BAG 30 MEQ IV (14:35)
--- NOTE | 2020-10-05 15:21 | P.CONIM_ITS ---
Providers/Reason For Consult Consulting Physician/Specialty*: General Surgery Bharathi Fay MD Reason for Consult*: Requesting PEG tube placement. Attending Physician: Carlos Manuel Sharp MD Primary Care Provider: HOLDEN Maurice History of Present Illness History of Present Illness Joseline Marshall is a 74 year old female with significant dysphagia following what has been deemed to be a CVA. She apparently has not had any significant p.o. intake in 8 days. While she is apparently improving, the recommendation has been made for her to get a PEG tube for nutrition while she convalesces. The patient cannot give me a lot of history today but is able to tell me that she is agreeable to a feeding tube placement. Review of Systems General: Reports: ROS unobtainable due to mental status (Not completely obtainable status post CVA) Meds/Allergies Home Medications and Allergies Home Medications Medication Instructions Recorded Confirmed Last Taken Type lidocaine [Lidoderm] 1 patch TOPICAL Q24H #15 ea MDD 1 09/25/20 10/01/20 Unknown Rx meloxicam 15 mg PO DAILY #14 tab 09/25/20 10/01/20 Unknown Rx buspirone 30 mg PO BEDTIME 10/01/20 10/01/20 Unknown History citalopram 40 mg PO DAILY 10/01/20 10/01/20 Unknown History levothyroxine 75 mcg PO DAILY 10/01/20 10/01/20 Unknown History omeprazole 20 mg PO DAILY 10/01/20 10/01/20 Unknown History pravastatin 80 mg PO DAILY 10/01/20 10/01/20 Unknown History quetiapine 50 mg PO BEDTIME 10/01/20 10/01/20 Unknown History Allergies Allergy/AdvReac Type Severity Reaction Status Date / Time fluoxetine [From Prozac] Allergy ALGY-Anaphy Verified 09/06/20 16:02 laxis Current Medications Current Medications Generic Name Dose Route Start Last Admin Trade Name Freq PRN Reason Stop Dose Admin Aspirin 81 mg 10/01/20 17:27 10/05/20 10:03 Aspirin 81 Mg Ec Tablet PO Not Given DAILY JAYJAY Atorvastatin Calcium 40 mg 10/01/20 21:00 10/04/20 19:50 Atorvastatin 40 Mg Tablet PO Not Given BEDTIME JAYJAY Enoxaparin Sodium 60 mg 10/04/20 11:30 10/05/20 10:52 Enoxaparin 60 Mg/0.6 Ml Syringe SUBCUT 60 mg Q12H JAYJAY Administration Potassium Chloride/Dextrose/Sod Cl 20 meq in 1,000 mls @ 30 mls/hr 10/05/20 13:15 10/05/20 14:35 Dextrose 5%-Ns + Kcl 20 IV 30 mls/hr .Q24H JAYJAY Administration Lanolin 1 applic 10/04/20 22:29 10/04/20 22:38 Lanolin Oint 7 Gm TOPICAL 1 applic PRN PRN Administration DRYNESS Levothyroxine Sodium 37.5 mcg 10/01/20 18:00 10/05/20 10:02 Levothyroxine 100 Mcg Sdv IVP Not Given DAILY JAYJAY Lidocaine 1 patch 10/01/20 17:27 10/05/20 10:50 Lidocaine 5% Patch TOPICAL Not Given Q24H JAYJAY Midodrine 10 mg 10/03/20 16:40 10/05/20 10:04 Midodrine 5 Mg Tablet PO Not Given TID JAYJAY Pantoprazole Sodium 40 mg 10/03/20 11:30 10/05/20 10:52 Pantoprazole 40 Mg Sdv IVP 40 mg Q12H JAYJAY Administration PFSH Acute PFSH: Medical History Chronic back pain GERD (gastroesophageal reflux disease) Hyperlipidemia Hypothyroidism Surgical History History of hysterectomy Family History Mother Breast cancer Social History Smoking and tobacco status: never smoked Alcohol intake: never Substance/Drug Use: never Vitals/I&O/Wt Last Vital Signs Temp 97.6 F 10/05/20 12:29 Pulse 77 10/05/20 12:29 Resp 10 L 10/05/20 12:29 BP 118/80 10/05/20 12:29 Pulse Ox 98 10/05/20 12:29 10/05/20 10/05/20 10/05/20 06:59 14:59 22:59 Intake Total 450 / 900 950 / 950 Output Total 1000 / 3100 Balance -550 / -2200 950 / 950 Physical Exam Narrative: EXAM NARRATIVE: The patient was encountered in her hospital room. She was resting but was arousable. She tells me that she is doing okay. She indicates that she has been having trouble swallowing but does not answer all of my questions all of the time. The pupils seem equal. No carotid bruits are heard. The lungs are clear anteriorly. The heart is regular. The abdomen is mildly obese but is soft. She has a healed lower midline incision. I do not see any scars on the upper abdomen. The extremities reveal no significant edema. Urinary Catheter Management^: Brito: Cath Placed During This Visit: yes Reason for Continuing Indwelling Catheter: Accurate Measurement of Urinary Output in Critically Ill Patients Urinary Catheter Date of Insertion: 10/01/20 Urinary Catheter Time of Insertion: 14:27 Data Micro: Micro: Microbiology 10/01/20 14:30 Blood Culture - Pr eliminary Blood Staphylococcus sp coag neg Imaging^: CT Abd/Pel: Radiologist's impression: CT abdomen/pelvis 10/01/2020 IMPRESSION: 1. Excreted contrast material noted in the kidneys and collecting system. This would obscure the presence of small renal calculi. No renal cyst or mass. No hydronephrosis. Ureters appear unremarkable. No obstructive uropathy. 2. No acute abnormality demonstrated in the abdomen and pelvis. A&P Assessment and plan (1) Dysphagia: The patient has been unable to swallow well since her CVA. Feeding tubes were discussed with her today. As far as I can tell, she seems to understand what I am discussing although she is not verbal all of the time. She indicates she is agreeable to placement of a feeding tube tomorrow. I see that she is on Lovenox for her PEs; I am going to leave this on board as she will get a dose late tonight and then we will perform the procedure before her next dose late tomorrow morning. I think the risk of bleeding with gastrostomy placement is going to be low. The patient's recent CAT scan of the abdomen and pelvis was reviewed. She appears to have somewhat of a high riding stomach which might make placement of a PEG tube difficult, but seems agreeable to placement of a gastrostomy one way or another (laparoscopic/open) tomorrow. I will make the necessary arrangements. Status: Acute (2) CVA (cerebral vascular accident): Status: Acute Consult Attestations Medical Necessity Statement: See admitting service's notation. Coding Level of Care Code Acute Machine Operator Cane Cutter for g Fwd Diagnoses Dysphagia R13.10 CVA (cerebral vascular accident) I63.9
[2020-10-05] MEDS: lidocaine 5% Patch 1 PATCH TOPICAL (17:08)
[2020-10-05] MEDS: morphine 4 mg/mL SDV 1 mL 1 MG IVP (17:08)
--- NOTE | 2020-10-05 20:08 | PC.NURSE ---
Shift Note Frequent safety and comfort rounds continue. Orders and/or nursing care completed as indicated. Patient monitored for response to intervention and treatment(s). Education provided includes Aspiration risk precautions, CVA disease process, PEG tube insertion and transition to SNF. Patient and/or internet sales representative-Pt unable to comprehend but dgtr navene and keysha Ortiz verbalizes understanding on the plans and condition. Will continue to monitor.
--- NOTE | 2020-10-05 22:16 | PC.NURSE ---
Dr. Fay notified of ordered Lovenox being given a few minutes ago. Ordered okay to procedure with surgery at scheduled time in AM.
[2020-10-06] VITALS (16 sets, daily range): BP systolic 108–131; BP diastolic 62–82; PULSE 67–86; RESP 15–20; TEMP 36.1–36.7; O2SAT 91–99
--- NOTE | 2020-10-06 04:37 | PC.NURSE ---
Shift Note Frequent safety and comfort rounds continue. Orders and/or nursing care completed as indicated. Patient monitored for response to intervention and treatment(s). Education provided includes NPO diet and PEG tube surgery. Patient and/or policy services representative unable to verbalize understanding. Will continue to monitor.
--- NOTE | 2020-10-06 08:41 | P.ANESASSM_ITS ---
Pre-Anesthetic Assessment Pre-Anesthetic Assessment: Height/Weight: Height 1.68 m Weight 58.315 kg Temp Pulse Resp BP Pulse Ox 97.9 F 72 16 118/68 96 10/06/20 08:24 10/06/20 08:24 10/06/20 08:24 10/06/20 08:24 10/06/20 08:24 Proposed Procedure: Operation Date: 10/06/20 08:30 Proposed Procedures p PEG Tube Insertion(Not Applicable) - Bharathi Fay MD Was Beta Tito taken within 24 hours: N/A Was Clonidine taken within 24 hours: N/A Social: Social History: No alcohol and No tobacco Exam: Pre-Anes Outpt Exam: clear to auscultation bilaterally and regular rate & rhythm Additional Exam Findings (including area of procedure): confused Airway: Submandibular: WNL Cervical ROM: WNL MP: 2 Dentition: False History/ROS: No significant history except as noted and No significant complaints Pulmonary: Pulmonary: None reported CV/HEM: CV/HEM: None reported : : None reported Hepatic: Hepatic: None reported GI: GI: GERD Metabolic: Metabolic: Thyroid Musc/skel: Musc/skel: None reported Neuropsych: Neuropsych: CVA Anesthetic Plan: ASA status: 3 Anesthesia: Anesthesia Evaluation and MAC Risk of > 500 ml blood loss (7ml/kg in children): No Meds/Allergies Current Medications: Current Medications Generic Name Dose Route Start Last Admin Trade Name Freq PRN Reason Stop Dose Admin Aspirin 81 mg 10/01/20 17:27 10/05/20 10:03 Aspirin 81 Mg Ec Tablet PO Not Given DAILY JAYJAY Atorvastatin Calci um 40 mg 10/01/20 21:00 10/05/20 19:35 Atorvastatin 40 Mg Tablet PO Not Given BEDTIME JAYJAY Enoxaparin Sodium 60 mg 10/04/20 11:30 10/05/20 21:59 Enoxaparin 60 Mg /0.6 Ml Syringe SUBCUT 60 mg Q12H JAYJAY Administration Potassium Chloride /Dextrose/Sod Cl 20 meq in 1,000 m ls @ 30 mls/hr 10/05/20 13:15 10/05/20 14:35 Dextrose 5%-Ns + Kcl 20 IV 30 mls/hr .Q24H JAYJAY Administration Lanolin 1 applic 10/04/20 22:29 10/04/20 22:38 Lanolin Oint 7 G m TOPICAL 1 applic PRN PRN Administration DRYNESS Levothyroxine Sodi um 37.5 mcg 10/01/20 18:00 10/05/20 10:02 Levothyroxine 10 0 Mcg Sdv IVP Not Given DAILY JAYJAY Lidocaine 1 patch 10/01/20 17:27 10/05/20 17:08 Lidocaine 5% Pat ch TOPICAL 1 patch Q24H JAYJAY Administration Midodrine 10 mg 10/03/20 16:40 10/05/20 19:36 Midodrine 5 Mg T ablet PO Not Given TID JAYJAY Pantoprazole Sodiu m 40 mg 10/03/20 11:30 10/05/20 21:59 Pantoprazole 40 Mg Sdv IVP 40 mg Q12H JAYJAY Administration PFSH Anesthesia PFSH: Medical History Chronic back pain GERD (gastroesophageal reflux disease) Hyperlipidemia Hypothyroidism Surgical History History of hysterectomy Family History Mother Breast cancer Social History Smoking and tobacco status: never smoked Alcohol intake: never Substance/Drug Use: never Data Anesthesia CBC & Chem 7: 10/05/20 08:23 10/05/20 08:23 Other Labs: Laboratory Results - last 48 hr 10/01/20 10/04/20 10/04/20 17:02 17:25 17:25 WBC 7.5 RBC 3.09 L Hgb 10.5 L Hct 31.1 L MCV 100.6 H MCH 34.0 MCHC 33.8 RDW 18.6 H Plt Count 133 MPV 11.6 H Neut % (Auto) 73.2 Lymph % (Auto) 15.9 [place] % (Auto) 5.3 Eos % (Auto) 0.4 Baso % (Auto) 0.4 Neut # (Auto) 5.48 Lymph # (Auto) 1.2 [place] # (Auto) 0.4 Eos # (Auto) 0.0 Baso # (Auto) 0.0 Nucleated RBC % (auto) 2.3 Nucleated RBCs # 0.2 PT INR Sodium Potassium Chloride Carbon Dioxide Anion Gap BUN Creatinine GFR Calculation Glucose Calculated Osmolality Lactate Calcium Phosphorus Magnesium Total Bilirubin AST ALT Alkaline Phosphatase Creatine Kinase C-Reactive Protein NT-Pro-B Natriuret Pep Total Protein Albumin Globulin Vitamin B12 Folate 6.8 Procalcitonin [facility] [place] Test Reference See comment 10/04/20 10/05/20 10/05/20 17:25 08:23 08:23 WBC 7.7 RBC 2.94 L Hgb 9.9 L Hct 29.4 L MCV 100.0 H MCH 33.7 MCHC 33.7 RDW 18.6 H Plt Count 126 L MPV 12.0 H Neut % (Auto) 72.6 Lymph % (Auto) 17.6 [place] % (Auto) 5.6 Eos % (Auto) 0.5 Baso % (Auto) 0.4 Neut # (Auto) 5.56 Lymph # (Auto) 1.4 [place] # (Auto) 0.4 Eos # (Auto) 0.0 Baso # (Auto) 0.0 Nucleated RBC % (auto) 1.7 Nucleated RBCs # 0.1 PT INR Sodium 149 H Potassium 3.4 L Chloride 110 H Carbon Dioxide 31 H Anion Gap 11.4 BUN 23 Creatinine 0.7 GFR Calculation Not Reportable Glucose 98 Calculated Osmolality 312 H Lactate Calcium 8.3 L Phosphorus 2.4 L Magnesium 1.7 Total Bilirubin 0.4 AST 19 ALT 13 Alkaline Phosphatase 74 Creatine Kinase C-Reactive Protein 9.0 H NT-Pro-B Natriuret Pep Total Protein 4.5 L Albumin 2.6 L Globulin 1.9 Vitamin B12 1111 Folate Procalcitonin [facility] [place] Test Reference 10/05/20 10/05/20 10/05/20 08:23 08:23 08:23 WBC RBC Hgb Hct MCV MCH MCHC RDW Plt Count MPV Neut % (Auto) Lymph % (Auto) [place] % (Auto) Eos % (Auto) Baso % (Auto) Neut # (Auto) Lymph # (Auto) [place] # (Auto) Eos # (Auto) Baso # (Auto) Nucleated RBC % (auto) Nucleated RBCs # PT 14.70 INR 1.12 Sodium Potassium Chloride Carbon Dioxide Anion Gap BUN Creatinine GFR Calculation Glucose Calculated Osmolality Lactate 1.5 Calcium Phosphorus Magnesium Total Bilirubin AST ALT Alkaline Phosphatase Creatine Kinase 68 C-Reactive Protein NT-Pro-B Natriuret Pep 2145 H Total Protein Albumin Globulin Vitamin B12 Folate Procalcitonin 0.31 Misc Test Reference Micro: Microbiology 10/01/20 14:30 Blood Culture - Preliminary Blood Staphylococcus sp coag neg Cardiac Studies: Echocardiogram 10/02/20
[2020-10-06 10:14] LABS: Basophils % 0.3 %; Eosinophils # 0.1 10^3/uL (0.0-0.8); Eosinophils % 0.8 %; Hematocrit 29.5 % (37.0-47.0); Lymphocytes # 1.4 10^3/uL (0.8-4.8); Lymphocytes % 18.8 %; Mean Corpuscular HGB Conc 33.9 g/dL (30.0-36.0); Mean Corpuscular Hemoglobin 34.1 pg (28.0-34.0); Mean Corpuscular Volume 100.7 fl (81-99); Mean Platelet Volume 11.7 fL (7.4-10.4); Monocytes # 0.4 10^3/uL (0.2-0.9); Monocytes % 5.4 %; Neutrophils # 5.49 10^3/uL (1.8-7.7); Neutrophils % 71.9 %; Nucleated Red Blood Cells # 0.1 /100WBC; Nucleated Red Blood Cells % 1.6 %; Platelet Count 136 10^3/cmm (130-400); Red Blood Count 2.93 10^6/uL (4.1-5.3); Red Cell Distribution Width 18.4 % (12.1-15.1); White Blood Count 7.6 10^3/uL (4.0-10.0)
--- NOTE | 2020-10-06 10:39 | PC.SOCIAL ---
IMM Updated Updated pt on Pg 2 IMM. No questions voiced. Provided pt a copy. Initialed, dated, & timed copy in chart.
[2020-10-06 10:55] LABS: Alanine Aminotransferase 11 U/L (0-33); Albumin Level 2.5 g/dL (3.5-5.2); Alkaline Phosphatase 78 IU/L (35-105); Anion Gap 12.3 (5-19); Aspartate Amino Transferase 16 U/L (0-32); Blood Urea Nitrogen 20 mg/dL (8-23); Calcium 8.4 mg/dL (8.5-10.5); Carbon Dioxide 29 mmol/L (22-29); Chloride 110 mmol/L (98-107); Globulin 2.1 g/dL (1.3-4.6); Glucose 87 mg/dL (65-115); Magnesium 1.5 mg/dL (1.7-2.3); NT Pro B Type Natriuretic Pept 1577 pg/mL (0-125); Osmolality Calculated 308 mOsm/kg (285-295); Phosphorus 2.3 mg/dL (2.5-4.5); Potassium 3.3 mmol/L (3.5-5.1); Sodium 148 mmol/L (136-145); Total Bilirubin 0.5 mg/dL (0.15-1.2); Total Protein 4.6 g/dL (6.6-8.7)
--- NOTE | 2020-10-06 11:22 | P.PN_ITS ---
Subjective Subjective: Interval history: Patient was seen this morning, after her PEG tube placement, she says good morning to me, she tells me her name, she tells me she is doing fine, she does not know where she is, she does not know the time, she knows her birthdate, she is able to follow simple commands, continues to have upper and lower extremity weakness, no slurring of her face, no facial droop, but is much more alert this morning Vitals/I&O/Wt Last Vital Signs Temp 97.8 F 10/06/20 09:35 Pulse 70 10/06/20 09:35 Resp 17 10/06/20 09:35 BP 128/79 10/06/20 09:35 Pulse Ox 97 10/06/20 09:35 10/05/20 10/06/20 10/06/20 22:59 06:59 14:59 Intake Total 0 / 950 0 / 0 Output Total 600 / 600 0 / 0 Balance -600 / 350 0 / 0 Physical Exam Const: COMMON NORMALS: no acute distress ORIENTATION/CONSCIOUSNESS: Yes awake and Yes oriented to person; not oriented to place and not oriented to time Resp: COMMON NORMALS: normal respiratory effort, No retractions, No use of accessory muscles and clear to auscultation bilaterally AUSCULTATION: clear to auscultation bilaterally Cardio: COMMON NORMALS: regular rate, regular rhythm, S1 normal heart sound present and S2 normal heart sound present RATE: regular rate RHYTHM: regular rhythm HEART SOUNDS: S1 normal heart sound present and S2 normal heart sound present GI: COMMON NORMALS: Normal to inspection, nondistended, normoactive bowel sounds present, Soft to palpation and non-tender PALPATION: Yes Soft to palpation Extremity: COMMON NORMALS: no pedal edema Neuro: SENSORIUM/ORIENTATION: Yes oriented to person, No oriented to place and No oriented to time OTHER: Strength in upper extremities, 105, strength in lower extremities 1 out of 5, Urinary Catheter Management^: Brito: Cath Placed During This Visit: yes Reason for Continuing Indwelling Catheter: Other Urinary Catheter Date of Insertion: 10/01/20 Urinary Catheter Time of Insertion: 14:27 Data : 10/06/20 09:45 10/06/20 09:45 Micro: Microbiology 10/01/20 14:30 Blood Culture - Preliminary Blood Staphylococcus sp coag neg A&P Assessment and plan (1) CVA (cerebral vascular accident): -Last known well normal was on 09/28/2020, 3 days before she was brought to the hospital -Out of TPA window -According to daughter she was not responding appropriately, was barely arousable -During her ER visit, she did not respond appropriately, did not respond to sternal rub initially, but would wake up here and there say a few words -head ct: 1. No acute intracranial abnormality. 2. Moderate diffuse cerebral atrophy and mild sequela of chronic small vessel ischemic disease. -CTA head and neck: NTERIOR CIRCULATION: Right internal carotid artery: Unremarkable. Intracranial segment is patent with no significant stenosis. No aneurysm. Right middle cerebral artery: Unremarkable. No occlusion or significant stenosis. No aneurysm. Right anterior cerebral artery: Unremarkable. No occlusion or significant stenosis. No aneurysm. Left internal carotid artery: Unremarkable. Intracranial segment is patent with no significant stenosis. No aneurysm. Left middle cerebral artery: Unremarkable. No occlusion or significant stenosis. No aneurysm. Left anterior cerebral artery: Unremarkable. No occlusion or significant stenosis. No aneurysm. POSTERIOR CIRCULATION: Right vertebral artery: Unremarkable. No occlusion or significant stenosis. No aneurysm. Left vertebral artery: Unremarkable. No occlusion or significant stenosis. No aneurysm. Basilar artery: Unremarkable. No occlusion or significant stenosis. No aneurysm. Right posterior cerebral artery: Unremarkable. No occlusion or significant stenosis. No aneurysm. Left posterior cerebral artery: Unremarkable. No occlusion or significant stenosis. No aneurysm. Brain: No definite mass, mass effect, or midline shift. Cerebral ventricles: No ventriculomegaly. Bones/joints: Unremarkable. No acute fracture. Soft tissues: Unremarkable. Right common carotid artery: No stenosis. No dissection or occlusion. Right internal carotid artery: No stenosis of the extracranial segment. No dissection or occlusion. Right external carotid artery: No occlusion or stenosis of the origin. Left common carotid artery: Calcified and noncalcified atherosclerotic plaque at the carotid bulb. No significant stenosis. No dissection or occlusion. Left internal carotid artery: Mild stenosis at the proximal left internal carotid artery. No dissection or occlusion. Left external carotid artery: No occlusion or stenosis of the origin. Right vertebral artery: No stenosis. No dissection or occlusion. Left vertebral artery: No stenosis. No dissection or occlusion. Soft tissues: Normal. No significant soft tissue swelling. Bones/joints: No acute fracture. -MRI brain 1. Small amount of patchy restricted diffusion in the right frontal lobe consistent with acute ischemia. 2. 1.6x0.8 cm area of acute ischemia in the left cerebellum. Associated mild edema. 3. No significant mass effect or midline shift. 4. Mild small vessel changes. Moderate parenchymal volume loss. 5. Advanced symmetric atrophy temporal lobes and hippocampal formations. 6. Patent flow voids at the skull base. Somewhat diminutive basilar artery likely due to dominant anterior circulation. Intracranial vessels can be further evaluated with CTA. 7. No hemosiderin on susceptibly weighted images. -Likely timeframe of CVA was 09/28/2020 when she went from normal to suddenly not normal -Has been on aspirin, statin, heparin since hospital admission -Above findings highly suspicious for embolic events related to A. fib, however EKGs here do not show A. fib, telemetry does not show A. fib -This morning alert, to person, not to place, not to time, follows simple commands, has strength in upper extremities 1 out of 5, strength lower extremit ies 1 out of 5 -Continues to be high risk of aspiration, poor swallowing, this is 8 days after the presumed acute event of a CVA, thus I highly suspect that she has had a brainstem stroke relating to swallowing dysfunction, although it does not show up radiographically Plan: -Continue telemetry monitoring -Although I do not see any A. fib events, likely will require an event monitor on discharge -Nonetheless continue aspirin, statin -Continue Lovenox, transition to Eliquis on discharge given pulmonary embolism as below -She has already completed permissive hypertension, she is already received IV fluids -Continue PT OT -Continue speech therapy -Follow-up with neurology as outpatient -PEG tube placed today, will start feedings tomorrow, consult nutrition, sitting up in senior care Status: Acute (2) Acute encephalopathy: -Accommodation of acute CVA, pulmonary embolism, hypernatremia, UTI -ct angio chest: Multifocal pulmonary emboli within both lungs as described in the body of the report. Imaging appearance suggestive of right heart strain. -Bilateral lower extremity venous ultrasound negative for DVT -CTA head:No large vessel stenosis or occlusion. Mild stenosis at the proximal left internal carotid less than 50% narrowing by NASCET criteria. No significant stenosis or occlusion. -CT head: 1. No acute intracranial abnormality. 2. Moderate diffuse cerebral atrophy and mild sequela of chronic small vessel ischemic disease. -Bilateral lower extremity ultrasound negative for DVT -CT scan of abdomen pelvis negative for obstructive uropathy -Echocardiogram shows EF of 55%, normal diastolic dysfunction, pulmonary pressure 22 mmHg -EKG with st depression II, III, V3-V6, AVF, ST elevation V1, V2 -WBC 10.3, tachycardia resolved, normotensive, on room air, afebrile, sepsis has resolved -UA with evidence of UTI -NSTEMI, baseline troponin 76, EKG changes as above -Hypovolemic hypernatremia secondary dehydration serum sodium 145, resolved -VEDA, resolved, creatinine 0.9 secondary to dehydration -Rhabdomyolysis, resolved -Lactic acidosis, 2.0, resolved -TSH within normal meds -Pro-Ha 0.30, CRP 13.8 -Now hemoglobin down to 10, no hemodynamic compromise -Platelet count 136 -Does have mild signs of fluid overload Plan: -hemoglobin down to 10, INR 1.10, concerning for a slow GI bleed hemoglobin has been stable stable on Lovenox, iron and ferritin are high, continue Lovenox for now, will consider switching over to Eliquis -Thrombocytopenia, platelet count did drop to 94,000 on heparin, she was switched to Lovenox, now platelet count is up to 136, HIT panel sent, unlikely to be WALTER as platelet counts have recovered, will continue to monitor, decide if we need to switch over to Eliquis -Monitor hemoglobin monitor blood pressures -Urine cultures unremarkable, blood cultures unremarkable, stopped antibiotic coverage -Follow blood cultures, urine cultures, sputum cultures, Covid PCR, urine bacterial antigens also for negative -Telemetry monitoring -Serum sodium remains 148, hypokalemia, hypomagnesemia, hypophosphatemia, place electrolytes, start gentle IV hydration until PEG tubes feedings can be started -Does have evidence of fluid overload, anasarca, status post Lasix, hold diu retics for now -Oxygen therapy, -Replace phosphorus, magnesium, potassium -Monitor neurologic status, aspiration precautions, seizure precautions, neurochecks -Aspirin, statin, telemetry monitoring -Protonix for GI prophylaxis -DVT Proflex SCDs, continue Lovenox -Full code -Currently n.p.o., evaluated by speech therapy, high risk of aspiration -Cardiology on consult Plan for today continue aspirin, statin, Lovenox, replace electrolytes, start gentle IV hydration, consult dietary Status: Acute (3) Bilateral pulmonary embolism: Status: Acute (4) Hypoxia: Status: Acute (5) Hypernatremia: Status: Acute (6) Hypokalemia: Status: Acute (7) VEDA (acute kidney injury): Status: Acute (8) Lactic acidosis: Status: Acute (9) Rhabdomyolysis: Status: Acute (10) NSTEMI (non-ST elevated myocardial infarction): Status: Acute (11) Sepsis: Status: Acute (12) Anemia: Hemoglobin down to 9.1, possibly secondary to GI bleed, Lovenox on hold, monitor hemoglobin Status: Acute (13) Thrombocytopenia: Status: Acute Attestations Medical Necessity Statement*: Patient requires hospitalization for CVA, pulmonary embolism, with PEG tube placement Coding Level of Care Code Acute 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
--- NOTE | 2020-10-06 11:48 | PM.PN ---
Subjective Subjective: Interval history: Patient is doing well. Mentation is improved. Had PEG tube placement. Vitals/I&O/Wt Last Vital Signs Temp 97.8 F 10/06/20 09:35 Pulse 70 10/06/20 09:35 Resp 17 10/06/20 09:35 BP 128/79 10/06/20 09:35 Pulse Ox 97 10/06/20 09:35 10/05/20 10/06/20 10/06/20 22:59 06:59 14:59 Intake Total 0 / 950 0 / 0 Output Total 600 / 600 0 / 0 Balance -600 / 350 0 / 0 Physical Exam Narrative: EXAM NARRATIVE: GENERAL: Alert today. HEENT: No pallor or icterus. NECK: No JVD. CARDIOVASCULAR SYSTEM: S1-S2 regular. No murmur rubs or gallops. RESPIRATORY SYSTEM: Chest clear to auscultation. No wheezes rhonchi or rubs heard. ABDOMEN: Soft, nontender and nondistended. Normal bowel sounds present. EXTREMITIES: 1+ edema. MANAGER IMMUNOLOGY: Patient is alert and oriented x1 to person. Reduced strength in all extremities. Urinary Catheter Management^: Brito: Cath Placed During This Visit: yes Reason for Continuing Indwelling Catheter: Other Urinary Catheter Date of Insertion: 10/01/20 Urinary Catheter Time of Insertion: 14:27 Data : 10/07/20 10:15 10/06/20 09:45 Micro: Microbiology 10/01/20 14:30 Blood Culture - Preliminary Blood Staphylococcus sp coag neg A&P Assessment and plan (1) Acute encephalopathy: Recent Stroke seen on MRI which is the etiology of the altered mental status -Improving Had PEG tube placement. Status: Resolved (2) Bilateral pulmonary embolism: On Lovenox Status: Acute (3) NSTEMI (non-ST elevated myocardial infarction): Type 2 NSTEMI in setting of PE. Also found to have stroke. Once patient is stabilized otherwise, will benefit from stress test. Can be done as outpatient -Continue aspirin and statin Status: Resolved Additional A&P Information Hypernatremia : Improving Dehydration Hypokalemia Hypomagnesemia Hypothyroidism UTI VEDA: Creatinine normalized Macrocytic anemia Thrombocytopenia Thank you for involving us with care of this patient. We will continue to follow. Please call with questions. Attestations Medical Necessity Statement*: Care expected to cross 2 midnights. 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
[2020-10-06] MEDS: dextrose 5%-ns + KCl 20 20 MEQ/1,000 ML BAG 30 MEQ IV (12:15)
[2020-10-06] MEDS: pantoprazole 40 mg SDV IVP ×2 (12:16→22:32)
[2020-10-06] MEDS: enoxaparin 60 mg/0.6 mL Syringe SUBCUT ×2 (12:16→22:32)
[2020-10-06] MEDS: magnesium sulfate premix 2 GM/50 ML PIGGYBACK IV (12:16)
--- NOTE | 2020-10-06 12:16 | PC.NUTR ---
PEG feeding recommendations: Recommend Jevity 1.2, 360 ml bolus (or 1.5 8-oz cartons) 4x/day, for a total of 6 cartons per day. Recommend 150 ml H2O flushes with each bolus, to provide 1728 kcal, 79 g protein, 1746 ml fluid. Suggest starting feedings at half volume (180 ml) for first bolus, and increase by 60 ml per feeding (or as tolerated) until providing full [address]ID[address] See full RD assessment for further details.
[2020-10-06] MEDS: dextrose 5%-sod chloride 0.9% 1,000 ML 30 ML IV (12:33)
--- NOTE | 2020-10-06 16:25 | ANE.PACU2 ---
Inpatient post-anesthesia follow up: Airway intact: Yes Vital signs: Temperature 97.8 F Pulse Rate [Monito r] 112 Pulse Rate 86 Respiratory Rate 17 Blood Pressure [Le ft Arm] 110/73 Blood Pressure 123/62 Pulse Oximetry 97 Oxygen Delivery Me thod [ Room Air Current Rate & Del candice] Oxygen Delivery Me thod Room Air Oxygen Flow Rate 0 Fraction of Inspir ed Oxygen 21 Hydration adequate: Yes Nausea and vomiting: No Pain level: 2 Mental status: Baseline
[2020-10-06] MEDS: morphine 4 mg/mL SDV 1 mL 1 MG IVP ×2 (18:11→23:56)
--- NOTE | 2020-10-06 20:05 | PC.NURSE ---
Shift Note Frequent safety and comfort rounds continue. Orders and/or nursing care completed as indicated. Patient monitored for response to intervention and treatment(s). Education provided includes lovenox and protonix. Patient verbalized understanding however will need continues reinforcement of all education due to continued confusion. Received report from BERNADETTE Carroll. Patient is s/p PEG tube placement. Dressing to site remains c,d,i at this time. Patient moans with movement and favors abdomen. Discussed pain control with patient regarding timing and expectations. Patient verbalized understanding however again will need frequent reinforcement as documented above. Patient repositioned for comfort x2 assist. No other distresses observed. Will continue to monitor.
[2020-10-06 20:25] LABS: Glucose Point of Care 107 mg/dL (70-110)
[2020-10-07] VITALS (12 sets, daily range): BP systolic 103–128; BP diastolic 72–86; PULSE 78–82; RESP 9–20; TEMP 36.4–36.7; O2SAT 93–100
[2020-10-07 03:53] LABS: Heparin Induced Platelet AB NEGATIVE (NEGATIVE); Patient O.D 0.009
[2020-10-07] MEDS: morphine 4 mg/mL SDV 1 mL 1 MG IVP ×2 (05:22→12:40)
--- NOTE | 2020-10-07 06:07 | PC.NURSE ---
Shift Note Frequent safety and comfort rounds continue. Orders and/or nursing care completed as indicated. Patient monitored for response to intervention and treatment(s). Education provided includes morphine. Patient verbalized understanding but will need reinforcement due to periods of increased confusion. Repositioned for comfort. Patient favors right side. Alert to self this morning. Will continue to monitor.
[2020-10-07 06:54] LABS: Glucose Point of Care 138 mg/dL (70-110)
--- NOTE | 2020-10-07 08:42 | PM.MISC ---
Miscellaneous Note Purpose of Documentation: Recommend Jevity 1.2, 360 ml bolus (or 1.5 8-oz cartons) 4x/day, for a total of 6 cartons per day. Recommend 150 ml H2O flushes with each bolus, to provide 1728 kcal, 79 g protein, 1746 ml fluid. Suggest starting feedings at half volume (180 ml) for first bolus, and increase by 60 ml per feeding (or as tolerated) until providing full 360 ml QID.
[2020-10-07] MEDS: aspirin 81 mg EC Tablet PO (10:16)
[2020-10-07] MEDS: magnesium sulfate premix 2 GM/50 ML PIGGYBACK IV (10:17)
[2020-10-07] MEDS: lidocaine 5% Patch 1 PATCH TOPICAL (10:17)
[2020-10-07 10:27] LABS: Basophils % 0.5 %; Eosinophils # 0.1 10^3/uL (0.0-0.8); Eosinophils % 0.8 %; Hematocrit 33.2 % (37.0-47.0); Hemoglobin 10.7 g/dL (11.5-15.3); Lymphocytes # 1.2 10^3/uL (0.8-4.8); Lymphocytes % 19.2 %; Mean Corpuscular HGB Conc 32.2 g/dL (30.0-36.0); Mean Corpuscular Hemoglobin 34.5 pg (28.0-34.0); Mean Corpuscular Volume 107.1 fl (81-99); Mean Platelet Volume 12.3 fL (7.4-10.4); Monocytes # 0.4 10^3/uL (0.2-0.9); Monocytes % 6.4 %; Neutrophils # 4.53 10^3/uL (1.8-7.7); Nucleated Red Blood Cells # 0.1 /100WBC; Nucleated Red Blood Cells % 1.4 %; Red Cell Distribution Width 18.7 % (12.1-15.1); White Blood Count 6.3 10^3/uL (4.0-10.0)
[2020-10-07 11:21] LABS: Platelet Count 100 10^3/cmm (130-400); Slide Review Slide Review Perform
--- NOTE | 2020-10-07 11:32 | P.PN_ITS ---
Subjective Subjective: Interval history: Patient denies any complaints today Vitals/I&O/Wt Last Vital Signs Temp 97.5 F L 10/07/20 08:00 Pulse 80 10/07/20 08:00 Resp 13 10/07/20 08:00 BP 109/75 10/07/20 08:00 Pulse Ox 100 10/07/20 08:00 10/06/20 10/07/20 10/07/20 22:59 06:59 14:59 Intake Total 109.0909 / 810.0909 Output Total 350 / 1950 150 / 2100 Balance -240.9091 / -1139.9091 -150 / -1289.9091 Physical Exam Narrative: EXAM NARRATIVE: GENERAL: Alert today. HEENT: No pallor or icterus. NECK: No JVD. CARDIOVASCULAR SYSTEM: S1-S2 regular. No murmur rubs or gallops. RESPIRATORY SYSTEM: Chest clear to auscultation. No wheezes rhonchi or rubs heard. ABDOMEN: Soft, nontender and nondistended. Normal bowel sounds present. EXTREMITIES: 1+ edema. CASE OPERATOR: Patient is alert and oriented x1 to person. Reduced strength in all e xtremities. Urinary Catheter Management^: Brito: Cath Placed During This Visit: yes Reason for Continuing Indwelling Catheter: Acute Urinary Retention or Obstruction Urinary Catheter Date of Insertion: 10/01/20 Urinary Catheter Time of Insertion: 14:27 Data : 10/07/20 10:15 10/06/20 09:45 Micro: Microbiology 10/01/20 14:25 Blood Culture - Final Blood NO GROWTH AFTER 5 DAYS A&P Assessment and plan (1) Acute encephalopathy: Recent Stroke seen on MRI which is the etiology of the altered mental status -Improving Had PEG tube placement. Status: Resolved (2) Bilateral pulmonary embolism: Lovenox switched to Eliquis Status: Acute (3) NSTEMI (non-ST elevated myocardial infarction): Type 2 NSTEMI in setting of PE. Also found to have stroke. Once patient is stabilized otherwise, will benefit from stress test. Can be done as outpatient -Continue aspirin and statin Status: Resolved Additional A&P Information Hypernatremia:Improving Dehydration Hypokalemia Hypomagnesemia Hypothyroidism UTI VEDA: Creatinine normalized Macrocytic anemia Thrombocytopenia Thank you for involving us with care of this patient. patient is ready to be discharged from cardiology standpoint. Please call with questions Attestations Medical Necessity Statement*: Care expected to cross 2 midnights. 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
--- NOTE | 2020-10-07 11:34 | P.DS_ITS ---
Discharge Providers Date of Admission: 10/01/20 17:27 Date of Discharge: October 07, 2020 Attending Provider at Admission: Carlos Manuel Sharp MD Attending Provider at Discharge: Carlos Manuel Sharp MD Primary Care Provider: HOLDEN Maurice Diagnoses at Discharge Discharge Diagnosis (1) Acute encephalopathy: Status: Acute (2) Bilateral pulmonary embolism: Status: Acute (3) NSTEMI (non-ST elevated myocardial infarction): Status: Acute Reason for Visit Reason for Visit: RESP DISTRESS Hospital Course Hospital Course This is a 74-year-old female with a past medical history of hypothyroidism, GERD, depression, recent diagnosis of compression fracture of lumbar spine, who was brought to [facility] as she became nonresponsive and altered mental status over the last 3 days Patient was admitted to [facility] for nonresponsiveness, altered mental status secondary to acute CVA, bilateral pulmonary emboli, hyponatremia, UTI CVA (cerebral vascular accident): -Last known well normal was on 09/28/2020, 3 days before she was brought to the hospital -Out of TPA window -NIH 18 -According to daughter she was not responding appropriately, was barely arousable for the last 3 days -During her ER visit, she did not respond appropriately, did not respond to sternal rub initially, but would wake up here and there say a few words -head ct: 1. No acute intracranial abnormality. 2. Moderate diffuse cerebral atrophy and mild sequela of chronic small vessel ischemic disease. -CTA head and neck: NTERIOR CIRCULATION: Right internal carotid artery: Unremarkable. Intracranial segment is patent with no significant stenosis. No aneurysm. Right middle cerebral artery: Unremarkable. No occlusion or significant stenosis. No aneurysm. Right anterior cerebral artery: Unremarkable. No occlusion or significant stenosis. No aneurysm. Left internal carotid artery: Unremarkable. Intracranial segment is patent with no significant stenosis. No aneurysm. Left middle cerebral artery: Unremarkable. No occlusion or significant stenosis. No aneurysm. Left anterior cerebral artery: Unremarkable. No occlusion or significant stenosis. No aneurysm. POSTERIOR CIRCULATION: Right vertebral artery: Unremarkable. No occlusion or significant stenosis. No aneurysm. Left vertebral artery: Unremarkable. No occlusion or significant stenosis. No aneurysm. Basilar artery: Unremarkable. No occlusion or significant stenosis. No aneurysm. Right posterior cerebral artery: Unremarkable. No occlusion or significant stenosis. No aneurysm. Left posterior cerebral artery: Unremarkable. No occlusion or significant stenosis. No aneurysm. Brain: No definite mass, mass effect, or midline shift. Cerebral ventricles: No ventriculomegaly. Bones/joints: Unremarkable. No acute fracture. Soft tissues: Unremarkable. Right common carotid artery: No stenosis. No dissection or occlusion. Right internal carotid artery: No stenosis of the extracranial segment. No dissection or occlusion. Right external carotid artery: No occlusion or stenosis of the origin. Left common carotid artery: Calcified and noncalcified atherosclerotic plaque at the carotid bulb. No significant stenosis. No dissection or occlusion. Left internal carotid artery: Mild stenosis at the proximal left internal carotid artery. No dissection or occlusion. Left external carotid artery: No occlusion or stenosis of the origin. Right vertebral artery: No stenosis. No dissection or occlusion. Left vertebral artery: No stenosis. No dissection or occlusion. Soft tissues: Normal. No significant soft tissue swelling. Bones/joints: No acute fracture. -MRI brain 1. Small amount of patchy restricted diffusion in the right frontal lobe consistent with acute ischemia. 2. 1.6x0.8 cm area of acute ischemia in the left cerebellum. Associated mild edema. 3. No significant mass effect or midline shift. 4. Mild small vessel changes. Moderate parenchymal volume loss. 5. Advanced symmetric atrophy temporal lobes and hippocampal formations. 6. Patent flow voids at the skull base. Somewhat diminutive basilar artery likely due to dominant anterior circulation. Intracranial vessels can be further evaluated with CTA. 7. No hemosiderin on susceptibly weighted images. -Likely timeframe of CVA was 09/28/2020 when she went from normal to suddenly not normal -Has been on aspirin, statin, heparin since hospital admission -Above findings highly suspicious for embolic events related to A. fib, however EKGs here do not show A. fib, telemetry does not show A. fib -Over the last few days she is shown significant improvement alert, to person, not to place, not to time, follows simple commands, has strength in upper extremities 1 out of 5, strength lower extremities 1 out of 5 -Continues to be high risk of aspiration, poor swallowing, this is 8 days after the presumed acute event of a CVA, thus I highly suspect that she has had a brainstem stroke relating to swallowing dysfunction, although it does not show up radiographically -Although I do not see any A. fib events, she was discharged with an event monitor -Nonetheless continue aspirin, statin and [facility] -On Eliquis as below -She runs lower blood pressures, no signs of sepsis, or other significant electrolyte abnormalities, I am discharged on midodrine 5 mg 3 times daily -Continue PT OT at [facility] -Continue speech therapy -Follow-up with neurology as outpatient -PEG tube placed -Recommend Jevity 1.2, 360 ml bolus (or 1.5 8-oz cartons) 4x/day, for a total of 6 cartons per day. Recommend 150 ml H2O flushes with each bolus, to provide 1728 kcal, 79 g protein, 1746 ml fluid. Suggest starting feedings at half volume (180 ml) for first bolus, and increase by 60 ml per feeding (or as tolerated) until providing full 360 ml QID. -ct angio chest: Multifocal pulmonary emboli within both lungs as described in the body of the report. Imaging appearance suggestive of right heart strain. -Bilateral lower extremity venous ultrasound negative for DVT -Echocardiogram shows EF of 55%, normal diastolic dysfunction, pulmonary pressure 22 mmHg -EKG with st depression II, III, V3-V6, AVF, ST elevation V1, V2 -cardiology consulted -Continue aspirin, statin, follow-up with cardiology as outpatient for consideration of stress testing -discharged on eliquis -CT scan of abdomen pelvis negative for obstructive uropathy\ -Was treated with IV antibiotics for UTI, urine cultures and blood cultures unremarkable -Hypovolemic hypernatremia secondary dehydration serum sodium 148, received IV hydration -VEDA, resolved, secondary to dehydration -Rhabdomyolysis, resolved -hemoglobin down to 10.7, INR 1.10, concerning for a slow GI bleed hemoglobin has been stable stable on Lovenox, iron and ferritin are high, discharged on Eliquis, have patient follow-up with hematology oncology, monitor CBC as outpatient -Thrombocytopenia, platelet count did drop to 94,000 on heparin, she was switched to Lovenox, now platelet count is up to 100, HIT panel sent, unlikely to be WALTER as platelet counts have recovered, will continue to monitor, on Eliquis, monitor platelet count as outpatient, have patient follow-up with hematology Physical Exam Const: COMMON NORMALS: no acute distress and alert ORIENTATION/CONSCIOUSNESS: Yes awake and Yes oriented to person; not oriented to place and not oriented to time HENMT: COMMON NORMALS: normocephalic HEAD & SCALP: normocephalic Neck/C-Spine: COMMON NORMALS: no JVD Resp: COMMON NORMALS: normal respiratory effort, No retractions, No use of accessory muscles and clear to auscultation bilaterally AUSCULTATION: clear to auscultation bilaterally Cardio: COMMON NORMALS: no JVD, regular rate, regular rhythm, S1 normal heart sound present and S2 normal heart sound present RATE: regular rate RHYTHM: regular rhythm HEART SOUNDS: S1 normal heart sound present and S2 normal heart sound present GI: COMMON NORMALS: Normal to inspection, nondistended, normoactive bowel sounds present, Soft to palpation and non-tender PALPATION: Yes Soft to palpation Extremity: COMMON NORMALS: no pedal edema Neuro: SENSORIUM/ORIENTATION: Yes alert, Yes oriented to person, No oriented to place and No oriented to time OTHER: Can say short phrases, no slurring her speech, no facial droop, does track me around the room, tells me good morning, she is able to wiggle her toes, but strength in lower extremities 1 out of 5 bilaterally, is able to squeeze my fingers, however strength is 1 out of 5 Urinary Catheter Management^: Brito: Cath Placed During This Visit: yes Reason for Continuing Indwelling Catheter: Acute Urinary Retention or Obstruction Urinary Catheter Date of Insertion: 10/01/20 Urinary Catheter Time of Insertion: 14:27 Discharge Data Data Completed and Pending: Completed Studies During Hospitalization Category Date Time Status CT abdomen pelvis wo con [id number] Urge nt Cat Scan 10/01/20 17:[address] angio chest PE protcl [id number] Urge nt Cat Scan 10/01/20 14:[address] angio headneck * [id number] Urge nt Cat Scan 10/01/20 14:[address] head wo con* 7 [id number] Stat Cat Scan 10/01/20 14:24 Completed XR chest 1V moe ble [id number] Stat Exams 10/01/20 14:24 Completed MR head wo con* 7 [id number] Routine MRI 10/04/20 10:15 [place] [id number] Urgent Ultrasound 10/01/20 17:27 Completed CV. echo complete * [id number] Routine Ultrasound 10/02/20 17:27 Completed Pending at discharge Category Date Time Status Blood Culture Sta t Lab 10/01/20 14:25 Results Complete Blood Co unt w/Auto AM LABS Lab 10/08/20 04:00 Ordered Comprehensive Met abolic Panel AM LA BS Lab 10/07/20 10:15 Received Comprehensive Met abolic Panel AM LA BS Lab 10/08/20 04:00 Ordered Heparin Induced T hrombocytopen Rout ine Lab 10/04/20 07:05 Results Immunochemical Fe vilma OCB Routine Lab 10/03/20 11:30 Uncollected Magnesium AM LABS Lab 10/07/20 10:15 Received Magnesium AM LABS Lab 10/08/20 04:00 Ordered NT Pro B Type Heather riuretic Pept QAM Lab 10/07/20 10:15 Received NT Pro B Type Heather riuretic Pept QAM Lab 10/08/20 06:00 Ordered Phosphorus AM LAB S Lab 10/07/20 10:15 Received Phosphorus AM LAB S Lab 10/08/20 04:00 Ordered Prothrombin Time INR AM LABS Lab 10/07/20 04:00 Ordered Prothrombin Time INR AM LABS Lab 10/08/20 04:00 Ordered SARS Covid-2 Anti gen Routine Lab 10/07/20 11:21 Uncollected Sputum Culture an d Gram Stain Stat Lab 10/01/20 16:48 Uncollected Labs from last 24 hours 10/07/20 10/07/20 10/07/20 10:15 10:15 06:49 WBC 6.3 RBC 3.10 L Hgb 10.7 L Hct 33.2 L MCV 107.1 H D MCH 34.5 H MCHC 32.2 D RDW 18.7 H Plt Count 100 L MPV 12.3 H Neut % (Auto) 72.0 Lymph % (Auto) 19.2 [place] % (Auto) 6.4 Eos % (Auto) 0.8 Baso % (Auto) 0.5 Neut # (Auto) 4.53 Lymph # (Auto) 1.2 [place] # (Auto) 0.4 Eos # (Auto) 0.1 Baso # (Auto) 0.0 Nucleated RBC % (a uto) 1.4 Nucleated RBCs # 0.1 Heparin Require Pa t Sodium Pending Potassium Pending Chloride Pending Carbon Dioxide Pending Anion Gap Pending BUN Pending Creatinine Pending GFR Calculation Pending Glucose Pending POC Glucose 138 H Calculated Osmolal ity Pending Calcium Pending Phosphorus Pending Magnesium Pending Total Bilirubin Pending AST Pending ALT Pending Alkaline Phosphata se Pending NT-Pro-B Natriuret Pep Pending Total Protein Pending Albumin Pending Globulin Pending Heparin-induced Ab 10/06/20 10/04/20 20:02 07:05 WBC RBC Hgb Hct MCV MCH MCHC RDW Plt Count MPV Neut % (Auto) Lymph % (Auto) [place] % (Auto) Eos % (Auto) Baso % (Auto) Neut # (Auto) Lymph # (Auto) [place] # (Auto) Eos # (Auto) Baso # (Auto) Nucleated RBC % (a uto) Nucleated RBCs # Heparin Require Pa t 0.009 Sodium Potassium Chloride Carbon Dioxide Anion Gap BUN Creatinine GFR Calculation Glucose POC Glucose 107 Calculated Osmolal ity Calcium Phosphorus Magnesium Total Bilirubin AST ALT Alkaline Phosphata se NT-Pro-B Natriuret Pep Total Protein Albumin Globulin Heparin-induced Ab Negative Vitals: Last Vital Signs Temp 97.5 F L 10/07/20 08:00 Pulse 80 10/07/20 08:00 Resp 13 10/07/20 08:00 BP 109/75 10/07/20 08:00 Pulse Ox 100 10/07/20 08:00 Discharge Plan Discharge Patient Disposition: Xfer SNF Condition: Stable Prescriptions: New Eliquis DVT-PE Treat 30D Start 5 mg (74 tabs) tablets,dose pack See Rx Instructions .ROUTE .COMPLEX Qty: 74 RF: 0 aspirin 81 mg Tablet,Delayed Release (Dr/Ec) 81 mg feeding tube DAILY 30 Days Qty: 30 RF: 0 midodrine 5 mg Tablet 5 mg feeding tube TID 30 Days Qty: 90 RF: 0 multivitamin Tablet 1 tab feeding tube DAILY 30 Days Qty: 30 RF: 0 pantoprazole [Protonix] 40 mg tablet,delayed release (DR/EC) 40 mg PO BID 30 Days Qty: 60 RF: 0 Continued lidocaine [Lidoderm] 5 % adhesive patch,medicated 1 patch topical Q24H MDD 1 Qty: 15 RF: 0 Changed levothyroxine 75 mcg Tablet 75 mcg feeding tube DAILY Qty: 0 RF: 0 pravastatin 80 mg tablet 80 mg feeding tube DAILY Qty: 0 RF: 0 quetiapine 50 mg tablet 50 mg feeding tube BEDTIME Qty: 0 RF: 0 Discontinued meloxicam 15 mg tablet 15 mg PO DAILY Qty: 14 RF: 0 citalopram 40 mg tablet 40 mg PO DAILY RF: 0 buspirone 30 mg tablet 30 mg PO BEDTIME RF: 0 omeprazole 20 mg capsule,delayed release(DR/EC) 20 mg PO DAILY RF: 0 Discharge Orders: Discharge Order (Routine); Ordered 10/07/20 Ordered By: Carlos Manuel Sharp Other Ambulatory Orders: [place] cardiac event monitor (Routine) Timeframe: 1 Day Facility: [facility] - Location: Cardiac Diagnostic Laboratory Ordered By: Carlos Manuel Sharp Referrals: Chloe Stovall MD [Physician] - 2 weeks (CVA) Shahrzad Contreras FNP [Primary Care Provider] - Valery Ornelas MD [Physician] - 1 month (consideration of stress testing) Discharge Diet: Start new tube feeds as directed Discharge Activity: As per PT/OT instructions Activity Restrictions/Additional Instructions: -PEG tube feeding: Recommend Jevity 1.2, 360 ml bolus (or 1.5 8-oz cartons) 4x/day, for a total of 6 cartons per day. Recommend 150 ml H2O flushes with each bolus, to provide 1728 kcal, 79 g protein, 1746 ml fluid. Suggest starting feedings at half volume (180 ml) for first bolus, and increase by 60 ml per feeding (or as tolerated) until providing full 360 ml QID. -Recommend seeing speech therapy daily for swallowing function assessment -Recommend daily PT OT -Monitor CBC, anemia and thrombocytopenia, in 2 days -Follow-up with hematology oncology in 1 month -Follow-up with neurology in 2 weeks -Follow-up with cardiology in 1 month -Event monitor ordered -Patient was placed on midodrine due to low blood pressures,, can de-escalate if she becomes hypertensive Discharge Attestations Time Spent in Discharge Care*: less than 30 min Quality Metrics Clinical Quality Measures During this hospital stay, did patient experience: None Coding Level of Care Code Acute Chg FW DC note Exam Detailed Diagnoses Acute encephalopathy G93.40 Bilateral pulmonary embolism I26.99 NSTEMI (non-ST elevated myocardial infarction) I21.4
--- NOTE | 2020-10-07 12:42 | PC.SLP ---
CASTING MOLDER attempted follow-up with the pt, however, pt in significant pain at present. Nursing giving pain medication. CASTING MOLDER will try again at a later time.
[2020-10-07 13:16] LABS: SARS Covid-2 Antigen Negative (Negative)
--- NOTE | 2020-10-07 13:39 | PC.CHAP ---
Pastoral Care Encounter/Spiritual Assessment Type of Contact [] Declined collections officer visit [] Patient/Family/Request visit [] Outpatient visit [xx] Follow-up visit [] Physician referral [] Code/Alert [xx] Routine visit [] Staff referral [] Actively dying [] Patient sleeping [] Family support [] [] Out of room [] Palliative care [] [] Receiving care in room [] Pre-surgical visit [] Trauma [xx] Long length of stay [] ICU visit [] Other: Relational/Emotional Strength [xx] Patient feels connected with others/family/visitors/staff [] Distress [] Loneliness/isolation [] Abandonment Spirituality of Patient [xx] Person of Cristiana [] Attends Orthodoxy of their Cristiana [xx] Believes in Prayer [] Reads Bible or Taoist materials [] There are Spiritual issues to be addressed Printing Table Worker Interventions [xx] Prayer [xx] Active listening [xx] Non-anxious presence [] Spiritual/emotional support [] Crisis/trauma care [] Spiritual counseling [] Bereavement support [] Provided bereavement packet [] Provided Bible/devotional materials [] Provided toy/stuffed animal, coloring book to patient or family member [] Provided Communion [] Anointing/[place]aggs [] Salvation [xx] Completed spiritual assessment [] Other: Impact on Illness or Injury [] Angry [] Fearful [] Anxious [] Often cries [] Exhaustion [] Unable to work [] Unable to attend sabianism [] Unable to walk/stand [] Unable to read [] Unable to drive [] Unable to eat/drink [] Unable to sleep [] Unable to be with family [] Patient intubated [] Other: Summary Patient wanted prayer but not a visit. She did not want to talk. Time spent with patient 4 minutes
[2020-10-07] MEDS: pantoprazole 40 mg SDV IVP (14:16)
[2020-10-07] MEDS: apixaban 5 mg Tablet 10 MG PO (14:16)
--- NOTE | 2020-10-07 15:42 | PC.NURSE ---
Pt discharged to SNF. Pt IVs removed no swelling or redness noted. Pts olivier removed. Pt tollerated well. Pt had no c/o pain or discomfort at the time of discharge.
[2020-10-07 21:13] LABS: UFH High Dose, 100 IU/ML 0 % release; UFH Low Dose, 0.1 IU/ML 0 % release; UFH Low Dose, 0.5 IU/ML 0 % release; UFH SRA Result NEGATIVE (NEGATIVE)
== END 2020-10-07 15:20 | disposition skilled nursing facility (03) | DRG 871 ==
LOC: ER 16:34 → CSU 17:09
PROVIDERS: Family Medicine; Hospitalist; Internal Medicine Cardiovascular Disease; Surgery; Admitting Provider Family Medicine; Emergency Provider Emergency Medicine; PCP Nurse Practitioner Family; Visit Provider Family Medicine
PROC: 0DH63UZ Insertion of Feeding Device into Stomach, Percutaneous Approach (ICD-10-PCS; CPT 43246; principal; 2020-10-06 08:30)
DX: A41.9 Sepsis, unspecified organism (principal); I63.9 Cerebral infarction, unspecified; I26.99 Other pulmonary embolism without acute cor pulmonale; G93.41 Metabolic encephalopathy; I21.A1 Myocardial infarction type 2; N39.0 Urinary tract infection, site not specified; E87.1 Hypo-osmolality and hyponatremia; N17.9 Acute kidney failure, unspecified; E87.2 Acidosis; M62.82 Rhabdomyolysis; R13.10 Dysphagia, unspecified; R53.1 Weakness; R29.718 NIHSS score 18; Z86.718 Personal history of other venous thrombosis and embolism; I95.9 Hypotension, unspecified; G89.29 Other chronic pain; S32.040D Wedge compression fracture of fourth lumbar vertebra, subsequent encounter for fracture with routine healing; W19.XXXD Unspecified fall, subsequent encounter; K21.9 Gastro-esophageal reflux disease without esophagitis; E78.5 Hyperlipidemia, unspecified; E03.9 Hypothyroidism, unspecified; F32.9 Major depressive disorder, single episode, unspecified; E86.0 Dehydration; E87.6 Hypokalemia; D69.6 Thrombocytopenia, unspecified; D53.9 Nutritional anemia, unspecified; I51.9 Heart disease, unspecified
CPT/HCPCS: 36415; 36416; 36600; 43246; 51702; 70450; 70496; 70498; 70551; 71045; 71275; 74176; 80048; 80051; 80053; 80202; 80306; 80307; 80500; 81001; 82009; 82330; 82550; 82607; 82728; 82746; 82805; 82962; 83036; 83540; 83605; 83690; 83735; 83880; 84100; 84145; 84295; 84443; 84484; 85025; 85362; 85378; 85384; 85610; 85651; 85730; 86140; 86403; 87040; 87086; 87205; 87426; 87641; 92507; 92523; 92526; 92610; 93005; 93306; 93970; 94664; 96365; 96367; 96372; 96375; 97161; 97167; 97530; 97535; 99291; C9113; J0692; J0743; J1644; J1650; J1940; J2270; J2704; J2930; J3370; J3475; J3480; J3490; J7030; J7050; Q9967